=== PATIENT | female | born 1940 | race Caucasian/White ===

== ENCOUNTER 2024-09-05 10:06 | Emergency (ER) | payer MEDICARE, SELFPAY ==
[2024-09-05 10:08] VITALS: BMI 19.8
[2024-09-05 10:11] VITALS: BP 137/75
--- NOTE | 2024-09-05 10:19 | ED.GENMED ---
History of Present Illness
General
Chief Complaint: Abdominal Symptoms
Source: patient
Exam Limitations: none
Time Seen by Provider: 09/05/24 10:07
History of Present Illness
History of Present Illness:
84-year-old female presents with 4 days worth of diarrhea. She goes numerous times throughout the day. Is mostly liquid. She denies any blood in the stool. She does have a history of C. difficile. No recent antibiotics. She was however in the
hospital 2 weeks ago at [facility] for bladder incontinence.
Past History
Past History
ED Past Medical History: GERD, HTN, Hypercholesterolemia, Hypothyroidism, Psychiatric (Depression) and Other (C. difficile with colitis, , alcohol abuse, PNA, IBS); Negative IDDM, NIDDM or OR
ED Past Surgical History: Orthopedic
Social History
Tobacco: Former smoker
Alcohol: Chronic alcoholic
Drug: None
Personal:
Living: skilled nursing ([facility])
Employment: Retired
Family History
Family History: Hypertension, Early CAD, CAD and Cancer (Colon cancer)
Phy Exam
Physical Exam
Physical Exam:
General: Well-appearing female no acute respiratory distress
HEENT: Normocephalic atraumatic
Heart: Regular rate and rhythm
Lungs: Clear no wheeze
Abdomen is soft nontender nondistended
Extremities: No cyanosis or edema
Skin: Warm no rash
Course
Orders/Labs/Results
Orders:
Orders
09/05/24 10:23
0.9% Sodium Chloride 1000 ml [Nss] 1,000 ml IV BOLUS
09/05/24 10:30
Complete Blood Count/With Diff Urgent
Comprehensive Metabolic Panel Urgent
09/05/24 14:01
STOOL [C difficile Antigen & Toxins] Urgent
MOHINI Source: Feces/Stool
Specimen Description:
Date Specimen was Collected: 09/05/24
Time Specimen was Collected: 13:55
Stool Culture Urgent
MOHINI Source: Feces/Stool
Specimen Description:
Date Specimen was Collected: 09/05/24
Time Specimen was Collected: :
Abnormal Lab Results
09/05/24
10:30
WBC 4.4 L 10^3/uL
(4.8-10.8)
RBC 4.11 L 10^6/uL
(4.20-5.40)
MCH 32.1 H pg
(27.0-31.0)
RDW 14.8 H %
(11.5-14.5)
Absolute Lymphs (auto) 0.6 L 10^3/uL
(1.2-3.4)
Lymphocytes % 14.3 L %
(20.5-51.1)
Monocytes % 11.8 H %
(1.7-9.3)
AST 78 H U/L
(14-36)
ALT 65 H U/L
(0-35)
09/05/24 10:30
09/05/24 10:30
Vital Signs
Initial and Last Documented VS:
Initial Vital Signs
Temp
98.1 F
09/05/24 10:08
Last Documented Vital Signs
Temp Pulse Resp BP Pulse Ox
98.1 F 78 20 161/72 97
09/05/24 10:08 09/05/24 13:00 09/05/24 13:00 09/05/24 13:00 09/05/24 13:00
MDM/Problems Addressed
Differential Diagnosis Includes:
Diarrhea for 4 days. History of C. difficile. Will order stool cultures and C. difficile studies. Abdomen exam is benign. She has nonbloody diarrhea. Considered imaging but not indicated given benign abdominal exam. Consider electrolyte
abnormality or dehydration from diarrhea.
Will hydrate. Labs pending
*Critical Care Note
Total Time (30-74mins, 75-104mins- exclusive of procedures): Not Applicable
Update Note
Update Note:
Reexamined patient multiple times. She looks well color has improved after hydration. Labs reviewed without significant finding. CT antigen positive toxin negative. She has seen GI in the past for diarrhea. She has been prescribed
cholestyramine and Lomotil in the past. Patient tolerating a brat diet currently. No indication for admission will try Bentyl at home with follow-up with GI. Stool cultures are pending
ED Attending Note
-
Portions of this chart may have been created with voice recognition software.� Occasional wrong word or��sound alike� substitutions may have occurred due to the inherent limitations of voice recognition software.
Discharge Plan
Departure
Patient Disposition: Home (Routine Discharge)
Date of Disposition: 09/05/24
Time of Disposition: 15:43
Patient with high blood pressure during this ER visit?: No
Discharge Problem:
Diarrhea
Instructions: Diarrhea in teens and adults
Prescriptions:
New
dicyclomine 10 mg capsule
10 mg PO QID PRN (Reason: diarrhea) Qty: 14 0RF
No Action
sertraline 100 MG tablet
100 mg PO DAILY
meloxicam 7.5 MG tablet
7.5 mg PO HS
Saline [place]
1 spray inhalation DAILY
Excedrin Extra Strength 250-250-65 mg Tablet
1 tab PO DAILY
sennosides [senna] 8.6 mg Tablet
8.6 mg PO BIDPRN PRN (Reason: constipation) Qty: 0 0RF
acetaminophen 325 mg Tablet
650 mg PO Q4HPRN PRN (Reason: mild pain) Qty: 1 0RF
docusate sodium 100 mg Capsule
100 mg PO BIDPRN PRN (Reason: Constipation) Qty: 0 0RF
ibuprofen 600 mg Tablet
600 mg PO Q4HPRN PRN (Reason: mild cramps) Qty: 0 0RF
simethicone [Gas Relief 80 (simethicone)] 80 mg Tablet,Chewable
80 mg PO Q6HPRN PRN (Reason: gas distention) Qty: 0 0RF
Referrals:
Sharita Guajardo MD [Family Provider] -
Activity Restrictions/Additional Instructions:
Continue drinking plenty of clear liquids. Even brat diet as discussed. You may use Bentyl if needed. Your stool cultures are pending. Follow-up with your GI team otherwise
Interventions
Interventions:
*Risk Screen - Suicide Last Done: 09/05/24 10:09
*General Assessment Last Done: 09/05/24 10:09
*Neglect/Abuse Screening Last Done: 09/05/24 10:09
*ED COVID-19 Vaccine History Last Done: 09/05/24 10:09
CV-Pxxzeq-Plyijqmgck Assessment Last Done: 09/05/24 10:10
Discharge Date and Time
Print Language: LATVIAN
[2024-09-05] MEDS: NSS 1000 IV (10:30)
[2024-09-05 10:45] LABS: % Basophils 0.5 % (0-2); % Eosinophils 0.9 % (0-6); % Immature Granulocytes 0.2 % (0-0.5); % Lymphocytes 14.3 % (20.5-51.1); % Monocytes 11.8 % (1.7-9.3); % Neutrophils 72.3 % (42.2-75.2); Absolute Lymphocytes 0.6 10^3/uL (1.2-3.4); Absolute Monocytes 0.5 10^3/uL (0.1-0.6); Absolute Neutrophils 3.2 10^3/uL (1.4-6.5); Hematocrit 37.9 % (37.0-47.0); Hemoglobin 13.2 g/dL (12.0-16.0); Mean Corp Hgb Conc. 34.8 g/dL (33.0-37.0); Mean Corpuscular Hgb 32.1 pg (27.0-31.0); Mean Corpuscular Volume 92.2 fL (81.0-99.0); Mean Platelet Volume 10.1 fL (7.4-10.4); Nucleated Red Blood Cells % 0 %; Platelet Count 174 10^3/uL (130-400); Red Blood Cell Count 4.11 10^6/uL (4.20-5.40); Red Cell Dist. Width 14.8 % (11.5-14.5); White Blood Cell Count 4.4 10^3/uL (4.8-10.8)
[2024-09-05 11:00] LABS: ALT (SGPT) 65 U/L (0-35); AST (SGOT) 78 U/L (14-36); Albumin 4.7 g/dl (3.5-5.0); Alkaline Phosphatase 125 U/L (38-126); Blood Urea Nitrogen 13 mg/dl (7-17); Calcium 9.4 mg/dl (8.4-10.2); Carbon Dioxide 23 mmol/L (22-30); Chloride 103 mmol/L (98-107); Estimated Creatinine Clearance 43 ml/min; Glucose 92 mg/dl (70-99); Potassium 4.2 mmol/L (3.5-5.1); Sodium 140 mmol/L (135-145); Total Bilirubin 1.1 mg/dl (0.2-1.3); Total Protein 7.5 g/dl (6.3-8.2); eGFR > 60.00
[2024-09-05 13:00] VITALS: BP 161/72
[2024-09-05 15:00] VITALS: BP 156/75
[2024-09-05 17:00] VITALS: BP 96/70
== END 2024-09-05 18:02 | disposition home or self-care (01) ==
LOC: EMR 10:06
PROVIDERS: Physician Assistant; EMERGENCY PHYSICIAN Student in an Organized Health Care Education/Training Program; FAMILY PHYSICIAN Family Medicine
DX: R19.7 Diarrhea, unspecified (principal); E03.9 Hypothyroidism, unspecified; E11.9 Type 2 diabetes mellitus without complications; E78.00 Pure hypercholesterolemia, unspecified; F32.A Depression, unspecified; I10 Essential (primary) hypertension; K21.9 Gastro-esophageal reflux disease without esophagitis; K58.0 Irritable bowel syndrome with diarrhea; R32 Unspecified urinary incontinence; Z80.0 Family history of malignant neoplasm of digestive organs; Z82.49 Family history of ischemic heart disease and other diseases of the circulatory system; Z87.891 Personal history of nicotine dependence
CPT/HCPCS: 99283; 96360; 80053; 85025; 87045; 87046; 87324; 87427; 87449

== ENCOUNTER 2025-01-26 23:27 | Observation (INO) | payer MEDICARE, SELFPAY ==
[2025-01-26] VITALS (11 sets, daily range): BP systolic 113–148; BP diastolic 48–82; BMI 26.5
[2025-01-26 15:21] LABS: Hematocrit 36.6 % (37.0-47.0); Hemoglobin 12.7 g/dL (12.0-16.0); Mean Corp Hgb Conc. 34.7 g/dL (33.0-37.0); Mean Corpuscular Hgb 32.3 pg (27.0-31.0); Mean Corpuscular Volume 93.1 fL (81.0-99.0); Mean Platelet Volume 10.6 fL (7.4-10.4); Platelet Count 121 10^3/uL (130-400); Red Blood Cell Count 3.93 10^6/uL (4.20-5.40); Red Cell Dist. Width 14.9 % (11.5-14.5); White Blood Cell Count 7.1 10^3/uL (4.8-10.8)
[2025-01-26 15:28] LABS: ALT (SGPT) 38 U/L (0-35); AST (SGOT) 43 U/L (14-36); Albumin 3.6 g/dl (3.5-5.0); Alkaline Phosphatase 168 U/L (38-126); Blood Urea Nitrogen 11 mg/dl (7-17); Calcium 8.1 mg/dl (8.4-10.2); Carbon Dioxide 19 mmol/L (22-30); Chloride 106 mmol/L (98-107); Glucose 109 mg/dl (70-99); Magnesium 2.1 mg/dl (1.6-2.3); Sodium 139 mmol/L (135-145); Total Bilirubin 1.1 mg/dl (0.2-1.3); eGFR > 60.00
[2025-01-26 15:31] LABS: Urine Albumin 2+ (Neg - Trace); Urine Bilirubin Negative (Negative); Urine Character Slightly Cloudy (Clear); Urine Color Amber; Urine Glucose Negative (Negative); Urine Ketone Negative (Negative); Urine Leukocyte 1+ (Negative); Urine Nitrite Positive (Negative); Urine Occult Blood Negative (Negative); Urine Urobilinogen Negative (Neg - 1+)
[2025-01-26 15:36] LABS: % Basophils 0.4 % (0-2); % Eosinophils 19.3 % (0-6); % Immature Granulocytes 1.8 % (0-0.5); % Monocytes 11.9 % (1.7-9.3); % Neutrophils 54.6 % (42.2-75.2); Absolute Eosinophils 1.4 10^3/uL (0-0.7); Absolute Immature Granulocytes 0.1 10^3/uL (0-0.05); Absolute Lymphocytes 0.9 10^3/uL (1.2-3.4); Absolute Monocytes 0.9 10^3/uL (0.1-0.6); Absolute Neutrophils 3.9 10^3/uL (1.4-6.5); Nucleated Red Blood Cells % 0 %
[2025-01-26 15:54] LABS: Urine Bacteria Moderate (Negative); Urine Red Blood Cell 0-2 /HPF (0-2)
[2025-01-26 16:04] LABS: Amphetamines Negative (Negative); Barbiturates Negative (Negative); Benzodiazepines Negative (Negative); Buprenorphine Negative (Negative); Cocaine Negative (Negative); Marijuana Positive (Negative); Methadone Negative (Negative); Methamphetamines Negative (Negative); Opiates Negative (Negative); Phencyclidine Negative (Negative); Tricyclic Antidepressants Negative (Negative)
[2025-01-26 16:07] LABS: Alcohol 74 mg/dl
--- NOTE | 2025-01-26 16:37 | ED.GENMED ---
History of Present Illness
General
Chief Complaint: Weakness
Source: patient
Exam Limitations: none
Time Seen by Provider: 01/26/25 15:58
Nursing documentation reviewed up to this point in time: agreed with
History of Present Illness
History of Present Illness:
Patient is a 85-year-old female history of alcohol abuse, hypertension, hyperlipidemia presenting to the emergency department for evaluation of generalized weakness. Patient states she feels extremely 'depleted '. She states she is was too weak to
get out of bed this morning and texted her son because she was covered in her own feces/urine. She does report chronic urinary/fecal incontinence. Patient has not been eating much over the past 2 days. She lives alone and feels that she is unable
to care for herself at this point.
Patient denies any recent fever or chills. No hematochezia or melena. She denies any vomiting, abdominal pain, or cough.
Patient denies any recent falls or trauma. No headache or neck pain.
She did have 2 glasses of wine prior to calling 911 today to calm her nerves.
I did call and speak to patient's son who lives in [place] and states patient texted him stating she was covered in her urine/feces and could not get out of bed. He urged her to call 911. Patient son states she is incapable of taking care of herself
and feels that she needs placement
Past History
Past History
ED Past Medical History: GERD, HTN, Hypercholesterolemia, Hypothyroidism, Psychiatric (Depression) and Other (C. difficile with colitis, , alcohol abuse, PNA, IBS); Negative IDDM, NIDDM or NM
ED Past Surgical History: Orthopedic
Social History
Tobacco: Former smoker
Alcohol: Chronic alcoholic
Drug: None
Personal:
Living: group home ([facility])
Employment: Retired
Family History
Family History: Hypertension, Early CAD, CAD and Cancer (Colon cancer)
Review of Systems
Review of Systems
Allergies reviewed?: Yes
All Other Systems: ROS reviewed and negative except as documented in HPI and ROS
Phy Exam
Physical Exam
Physical Exam:
Vitals: Patient's vital signs are stable. Afebrile
General: Patient is weak appearing.
Skin: Warm and dry. Diffuse maculopapular rash
Head: Normocephalic, atraumatic
Eyes: Sclera nonicteric. EOMs intact. No nystagmus.
Throat: Protecting airway
Neck: Normal ROM, no cervical spine tenderness, no meningismus
Cardiac: Regular rate and rhythm, no murmurs.
Pulm: Normal respiratory effort, no wheezes, rales, rhonchi heard on exam.
Abdomen: Abdomen soft and nontender. No rebound tenderness or guarding.
Extremities: No evidence of cyanosis or edema. Palpable DP pulses bilaterally
Neuro: AAOx3. No focal neurologic deficits.
Psychiatric: Normal affect.
Course
Orders/Labs/Results
Orders:
Orders
01/26/25 14:47
EKG [Electrocardiogram (*1)] Urgent
Reason for Study: Fatigue / Weakness
EKG- Treatment ONCE
01/26/25 15:10
Alcohol Urgent
Complete Blood Count/With Diff Urgent
Comprehensive Metabolic Panel Urgent
Creatine Phosphokinase Urgent
Comment: ADD ON
Magnesium Urgent
Urinalysis Reflex To Culture Urgent
Date Specimen was Collected: 01/26/25
Time Specimen was Collected: 14:47
Urine Microscopic Reflex Cult Urgent
Urine Culture Urgent
MOHINI Source: U
Specimen Description:
Date Specimen was Collected: 01/26/25
Time Specimen was Collected: 14:47
01/26/25 15:12
Urine Drug Abuse Screen Urgent
Date Specimen was Collected: 01/26/25
Time Specimen was Collected: 15:11
01/26/25 17:07
Add On- LAB Urgent
Tests Added?: CK
0.9% Sodium Chloride 500 ml [Nss] 500 ml IV BOLUS
01/26/25 17:22
Case Management Consult ONCE
Case Management Consult: Discharge Planning
01/26/25 18:02
0.9% Sodium Chloride 1000 ml [Nss] 1,000 ml IV BOLUS
01/26/25 19:00
COVID-19 Antigen Urgent
Source: Nasal Swab
Influenza A+B Rapid Molecular Urgent
MOHINI Source: Nasal Swab
Specimen Description:
01/26/25 19:22
STOOL [C difficile Antigen & Toxins] Urgent
MOHINI Source: Feces/Stool
Specimen Description:
Date Specimen was Collected: 01/26/25
Time Specimen was Collected: 19:30
01/26/25 19:32
Stool Culture Urgent
MOHINI Source: Feces/Stool
Specimen Description:
Date Specimen was Collected: 01/26/25
Time Specimen was Collected: 19:30
Abnormal Lab Results
01/26/25 01/26/25
15:10 15:12
RBC 3.93 L 10^6/uL
(4.20-5.40)
Hct 36.6 L %
(37.0-47.0)
MCH 32.3 H pg
(27.0-31.0)
RDW 14.9 H %
(11.5-14.5)
Plt Count 121 L 10^3/uL
(130-400)
MPV 10.6 H fL
(7.4-10.4)
Abs Immat Gran (auto) 0.1 H 10^3/uL
(0-0.05)
Absolute Lymphs (auto) 0.9 L 10^3/uL
(1.2-3.4)
Absolute Monos (auto) 0.9 H 10^3/uL
(0.1-0.6)
Absolute Eos (auto) 1.4 H 10^3/uL
(0-0.7)
Immature Gran % 1.8 H %
(0-0.5)
Lymphocytes % 12.0 L %
(20.5-51.1)
Monocytes % 11.9 H %
(1.7-9.3)
Eosinophils % 19.3 H %
(0-6)
Carbon Dioxide 19 L mmol/L
(22-30)
Glucose 109 H mg/dl
(70-99)
Calcium 8.1 L mg/dl
(8.4-10.2)
AST 43 H U/L
(14-36)
ALT 38 H U/L
(0-35)
Alkaline Phosphatase 168 H U/L
(38-126)
Creatine Kinase < 20 L U/L
(30-135)
Urine Nitrite (Reflex) Positive A
(Negative)
Leukocyte Esterase Rfl 1+ A
(Negative)
Urine Bacteria (Reflex) Moderate A
(Negative)
Urine Albumin (Reflex) 2+ A
(Neg - Trace)
U Marijuana (THC) Screen Positive H
(Negative)
01/26/25 15:10
01/26/25 15:10
Vital Signs
Initial and Last Documented VS:
Initial Vital Signs
Temp Pulse Resp BP Pulse Ox
98.4 F 88 24 113/57 94
01/26/25 14:50 01/26/25 14:50 01/26/25 14:50 01/26/25 14:50 01/26/25 14:50
Last Documented Vital Signs
Temp Pulse Resp BP Pulse Ox
98.4 F 84 26 116/57 94
01/26/25 14:50 01/26/25 16:08 01/26/25 16:08 01/26/25 16:08 01/26/25 16:08
MDM/Problems Addressed
Differential Diagnosis Includes:
Not limited to: Viral illness, acute dehydration, electrolyte imbalance, UTI, C. difficile, etc.
MDM/Problems Addressed:
85-year-old female with history as documented presenting with progressively worsening generalized weakness and concerns for inability to properly care for oneself at home. Denies associated chest pain, shortness of breath, fever, abdominal pain.
Does have chronic history of urinary/fecal incontinence. Vital stable and afebrile. Physical exam as above. Patient weak appearing although nontoxic-appearing. She is alert and oriented without any focal neurologic deficits on exam. There is no
evidence of any head or neck trauma. Benign abdomen. Cardio/pulmonary/unremarkable. Basic screening labs and urinalysis were sent prior to my evaluation. CBC with mild thrombocytopenia, otherwise vital signs stable. Chemistry with transaminitis
likely secondary to alcohol use. She does also have a very mild hypocalcemia. Urine somewhat equivocal for infection. EKG shows normal sinus rhythm without acute ischemic changes.
Patient without current evidence of alcohol withdrawal on exam. Labs without evidence of significant dehydration or significant electrolyte imbalance. No evidence of infectious process. Unfortunately�patient does not seem to be capable of caring
for oneself appropriately at home including ADLs. Do not feel she is safe for discharge home at this point. Patient will require admission for physical therapy/case management consult tomorrow and likely placement. Will hold antibiotics at this
time pending urine culture as she does have history of C. difficile. She was accepted to the hospitalist service in stable condition. Case discussed with attending physician, Dr. Kennedy.
Chronic conditions affecting care:
Hypertension, alcohol abuse, C. difficile
Acute Exacerbation and/or Progression of Chronic Illness:
N/A
*Pulse Oximetry
Patient hypoxic: no
*EKG
Interpreted by ED Provider?: Yes
EKG Intrepretation Date: 01/26/25
Interpretation: normal
Comparison EKG: no changes
Heart Rate: 93
Rate: normal
Rhythm: sinus
[place]: normal axis
Interval: normal QT interval
QRS Pattern: normal QRS
Ischemia: no ischemia
*Food Processor Interpretation
Rate: normal
Interpretation: normal
Heart Rate: 90
Rhythm: sinus
*Critical Care Note
Total Time (30-74mins, 75-104mins- exclusive of procedures): Not Applicable
Patient Management
Discussion with other providers: Hospitalist
ED Attending Note
-
Portions of this chart may have been created with voice recognition software.� Occasional wrong word or��sound alike� substitutions may have occurred due to the inherent limitations of voice recognition software.
Discharge Plan
Departure
Patient Disposition: Admit
Date of Disposition: 01/26/25
Time of Disposition: 18:12
Presentation/result/management discussed w/ accepting MD/DO: Hospitalist
Discharge Problem:
Generalized weakness, Alcohol abuse
Prescriptions:
No Action
Excedrin Extra Strength 250-250-65 mg Tablet
1 tab PO DAILYPRN PRN (Reason: sinus headache)
sertraline 50 mg Tablet
50 mg PO HS
melatonin 10 mg Tablet
10 mg PO HS
cholestyramine 4 gram Powder In Packet
4 g PO QPM
Referrals:
Sharita Guajardo MD [Family Provider] -
Interventions
Interventions:
*Risk Screen - Suicide Last Done: 01/26/25 14:50
*General Assessment Last Done: 01/26/25 14:50
*Neglect/Abuse Screening Last Done: 01/26/25 14:50
*ED- Fall Risk Assessment Last Done: 01/26/25 14:50
*ED COVID-19 Vaccine History Last Done: 01/26/25 14:50
ED- Cardiac Assessment Last Done: 01/26/25 14:50
ED- Neurological Assessment Last Done: 01/26/25 14:50
ED- Pulmonary Assessment Last Done: 01/26/25 14:50
Discharge Date and Time
Print Language: VINCENTIAN
[2025-01-26 17:41] LABS: Creatine Phosphokinase < 20 U/L (30-135)
[2025-01-26] MEDS: NSS 1000 IV (19:28)
[2025-01-26 19:49] LABS: COVID-19 Antigen Negative (Negative)
--- NOTE | 2025-01-26 22:31 | HPS.HSE ---
Family Physician
-
Family Physician: Sharita Guajardo
Chief Complaint
-
Allergies
Allergy/AdvReac Type Severity Reaction Status Date / Time
amoxicillin [Amoxicillin] Allergy Mild Vomiting Verified 07/17/22 10:14
clindamycin Allergy C-Diff Verified 07/17/22 10:14
nitrofurantoin AdvReac severe Verified 07/21/22 11:42
[From Macrobid] vomiting
Home Medications
yqkkddl-fzumxkhgagsem-isqgyqdr 250 mg-250 mg-65 mg tablet (Excedrin Extra Strength) 1 tab PO DAILYPRN PRN sinus headache 07/21/22
cholestyramine 4 gram oral powder for suspension in a packet 4 g PO QPM 01/26/25
melatonin 10 mg tablet 10 mg PO HS 01/26/25
sertraline 50 mg tablet 50 mg PO HS 01/26/25
History of Present Illness
The patient is an 85-year-old woman with past medical history significant for alcohol abuse, hypertension, hyperlipidemia, 2 episodes of C. Difficile colitis who presented to the emergency department due to generalized weakness with the feeling of
being extremely depleted. She was too weak to get out of bed this morning and texted her son. She was covered in her own feces and urine. She reports a history of chronic fecal and urinary incontinence. She has had anorexia for the past 2 days.
She feels that she is unable to care for herself at this point as she does live alone. She denies chest pain no shortness of breath no palpitations, no nausea vomiting or diarrhea. She denies recent sick contacts, no fevers no chills no bleeding
no dysuria. She had 2 glasses of wine prior to calling EMS secondary to anxiety. She says she does not drink alcohol daily.
ED txt: IVF NS 1500 mL
Medical History
Past Medical History
Past Medical History: Reports GERD, HTN, Hypercholesterolemia, Psychiatric (depression) and Other
Additional Past Medical History:
back melanoma, HTN, Hypothyroidism, depression,Insomnia, C. difficile colitis with fecal transplant x2, chronic seasonal allergies, chronic epistaxis, Klebsiella UTI, dry mouth, vitamin D deficiency
Past Surgical History: Reports Other
Additional Past Surgical History:
(Bilateral hip replacement
L2-L5 spinal fusion x2,
right shoulder replacement
Melanoma removal back
Social History
Tobacco: Non-smoker
Alcohol: None
Drug: None
Personal: Single
Living: Alone
Family History
Family History: Not pertinent
Allergies / Home Medications
Allergies reflects when Allergies were last updated in [facility].
Home Medications with original date entered in [facility]
Allergy/Medication List:
Allergies
Allergy/AdvReac Type Severity Reaction Status Date / Time
amoxicillin [Amoxicillin] Allergy Mild Vomiting Verified 07/17/22 10:14
clindamycin Allergy C-Diff Verified 07/17/22 10:14
nitrofurantoin AdvReac severe Verified 07/21/22 11:42
[From Macrobid] vomiting
Home Medications
lbyyfyu-yeqbdubvcqhip-cbymducu 250 mg-250 mg-65 mg tablet (Excedrin Extra Strength) 1 tab PO DAILYPRN PRN sinus headache 07/21/22
cholestyramine 4 gram oral powder for suspension in a packet 4 g PO QPM 01/26/25
melatonin 10 mg tablet 10 mg PO HS 01/26/25
sertraline 50 mg tablet 50 mg PO HS 01/26/25
Review of Systems
-
A 12 point ROS was completed and negative except as noted: Yes
Physical Exam
Vital Signs
Vital Signs
Temp Pulse Resp BP Pulse Ox
98.4 F 84 26 116/57 94
01/26/25 14:50 01/26/25 16:08 01/26/25 16:08 01/26/25 16:08 01/26/25 16:08
Physical Exam
General: No Apparent Distress, Comfortable and Conversant
HEENT: NormoCephalic, Anicteric and Moist mucous membranes
Respiratory: Clear
Cardiac: S1/S2 and Regular Rhythm
GI: Soft, Non Tender and Non Distended
Musculoskeletal: No Clubbing, No Cyanosis and No Edema
Skin: Warm and Dry
Neuro: AO x 3
Psych: Calm
Laboratory Results
-
01/26/25 15:10
01/26/25 15:10
Laboratory Results
Total Bilirubin 1.1 mg/dl (0.2-1.3) 01/26/25 15:10
AST 43 U/L (14-36) H 01/26/25 15:10
ALT 38 U/L (0-35) H 01/26/25 15:10
Alkaline Phosphatase 168 U/L (38-126) H 01/26/25 15:10
Impression/Plan
-
IMPRESSION:The patient is an 85-year-old woman with past medical history significant for alcohol abuse, hypertension, hyperlipidemia who presented to the emergency department due to generalized weakness with the feeling of being extremely depleted.
She was too weak to get out of bed this morning and texted her son. She was covered in her own feces and urine. She reports a history of chronic fecal and urinary incontinence. She has had anorexia for the past 2 days. She feels that she is
unable to care for herself at this point as she does live alone. She denies chest pain no shortness of breath no palpitations, no nausea vomiting or diarrhea. She denies recent sick contacts, no fevers no chills no bleeding no dysuria. She had 2
glasses of wine prior to calling EMS secondary to anxiety.
# Generalized weakness and failure to thrive
-Case management and physical therapy consult to evaluate mobility and options for placement
# Chronic urinary and fecal incontinence
-The patient was scheduled to have a pessary placed yesterday however was unable to go to her appointment, she also said that they did not have the correct pessary size for her
# History of alcohol abuse,2 glasses of wine prior to arrival
-alcohol withrawal protocol
-check mg, phos
-thiamine, folate
Chronic medical conditions:
#back melanoma
#Essential HTN
#Hypothyroidism
#Depression
-sertraline
#Insomnia
-melatonin
#C. difficile colitis with fecal transplant x2
-continue cholestyramine
#chronic seasonal allergies
# chronic epistaxis
#Klebsiella UTI, history of
#dry mouth
# vitamin D deficiency
DNR
DVT prophylaxis Lovenox-
[2025-01-27] VITALS (7 sets, daily range): BP systolic 129–153; BP diastolic 63–90; BMI 29.0
--- NOTE | 2025-01-27 01:24 | PTCARENOTE ---
Pt arrived onto floor @0124. Pt AAOx3 and a cotton puller to the bed. Pt with no complaints of pain or SOB at this time. Pt oriented to room and call chen; will continue to monitor
[2025-01-27] MEDS: QUESTRAN 4 GRAM PO ×3 (02:20→21:13)
[2025-01-27] MEDS: ZOLOFT 50 MG PO (02:20)
[2025-01-27] MEDS: ZOFRAN 4 MG IV (02:20)
[2025-01-27] MEDS: FOLVITE 1 MG PO (08:11)
[2025-01-27] MEDS: THIAMINE INJECTION 200 MG IV (08:11)
--- NOTE | 2025-01-27 09:00 | PTCARENOTE ---
4/5- Rounded with Physician in patient room. Patient is AAOX3, flat affect. She is refusing treatment except meds, states 'I'm done with all of this.' When physician asked her to elaborate, she stated, 'I am in pain. I'm old. The healthcare
system is horrible. I'm just done with this. I'm ready. I've accepted it. I just want to go home and .' She denies SI, HI or any hx SA, but she's just 'done with all of it.' Physician states he will put in a psych and palliative consult.
Patient also moved to Standard Precautions d/t Labs coming back Negative for CDiff Toxin (antigen positive).
--- NOTE | 2025-01-27 13:41 | W.PN.HOSP.TC ---
Today's Communication/Plan
-
* PT-OT-CM.
* IV hydration.
* Bowel regimen.
* Switch sertraline to duloxetine.
Assessment / Plan
Assessment / Plan
Assessment
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 She has chronic fecal and urinary incontinence, and has progressively been unable to care for herself and her hygiene. The day
she was brought to the hospital, she woke up and was not able to get out of bed and had been soaked with urine and feces. Also expresses hopelessness about her health situation and wants to 'just pass away'. She endorses 'terrible depression' and
states that it has 'not been adequately treated'. Denies suicidal or homicidal ideations, or any plans to that end. Of note, she has limited guardians that help with finances but she retains decision making for healthcare related decisions.
Impression and plan
Generalized weakness
Anorexia and nausea
- Likely from chronic deconditioning.
- Lab work unrevealing of any acute pathologies.
- PT-OT-CM consultation; may require placement for long-term care.
- Gentle IV hydration for now.
Fecal incontinence
Chronic diarrhea
History of C. Diff colitis *2
History of fecal transplant *2
- Increase cholestyramine to twice daily.
- Add loperamide prn.
Urinary incontinence
- Tried several outpatient medications but have not helped.
- Unable to find the right size for pessary.
- Not a surgical candidate either.
Persistent depressive disorder
Major depressive episode
Generalized anxiety disorder
- Psychiatry consultation.
- Switch sertraline to duloxetine.
History of alcohol use
- No concern for withdrawal at this point; monitor.
- Continue thiamine and folate.
Chronic insomnia
- Melatonin.
History of hypothyroidism
- Check studies.
Vitamin D deficiency
- Supplementation.
Thromboprophylaxis
- Enoxaparin.
Code status
- DNR-DNI
Anticipated Discharge: > 48 hours
Subjective/Interval History
-
Date of Service: January 27, 2025
Expressing frustrating about her health situation and states 'she just wants to pass away'. No plan or suicidal homicidal ideations.
Objective Data
-
Labs:
Laboratory Results
01/27/25
06:00
Sodium Pending
Potassium Pending
Chloride Pending
Carbon Dioxide Pending
BUN Pending
Creatinine Pending
Glucose Pending
Calcium Pending
Vital Signs:
Vital Signs
Temp Pulse Resp BP Pulse Ox
99.9 F 101 15 139/67 97
01/27/25 07:54 01/27/25 07:54 01/27/25 07:54 01/27/25 07:54 01/27/25 08:10
I&O
01/26/25 01/27/25 01/28/25
06:59 06:59 06:59
Intake Total 240 / 240
Balance 240 / 240
Review of Systems
-
History Source: Patient
Constitutional: Reports Fatigue
EENT: Reports No Symptoms Reported
Respiratory: Reports No Symptoms
Cardiac: Reports No Symptoms
Abdomen/GI: Reports Other (incontinence)
Genitourinary: Reports Other (incontinence)
Musculoskeletal: Reports No Symptoms
Skin: Reports No Symptoms
Neuro: Reports No Symptoms
Endocrine: Reports No Symptoms
Hematologic / Lymphatic: Reports No Symptoms
Allergy / Immunology: Reports No Symptoms
Psych: Reports Depressed and Sad
Physical Exam
-
General: No Apparent Distress and Comfortable
HEENT: Normocephalic, Atraumatic, Moist Mucous Membranes, Anicteric and No Ptosis
Respiratory: Clear to Auscultation and Non Labored Respirations
Cardiac: Regular Rhythm and S1/S2
GI: Soft, Nontender, Nondistended and No Hepatosplenomegaly
Genito-urinary: No Costovertebral Tender
Musculoskeletal: No Clubbing, No Cyanosis and No Edema
Skin: Warm, Dry and IV Access / Catheter Site
Neuro: Awake, Alert, Oriented, No Motor Deficits and Nonfocal/Grossly Intact
Hematologic / Lymphatic: No Lymphadenopathy
Psych: Calm, Depressed and Anxious; Negative Suicidal
[2025-01-27] MEDS: NSS 1000 IV (13:47)
--- NOTE | 2025-01-27 13:52 | CM ---
CM reviewed chart, patient seen bedside, consults received for substance abuse counseling and discharge planning. Per patient, lives alone in an apartment on the second floor, no elevator access, 19 steps to apartment. Patient reports she has a cane
and walker at home, has had [facility] in past, denies SNF history. Patient feels she cannot safely discharge home, reports she is too weak. Patient reports her son, Freddy, lives in [place] but is patients primary contact, her daughter who is a retired
teacher, lives in [place] but has her own health issues and is of no help to patient. Patient confirms her PCP Sharita Guajardo, pharmacy [facility]. 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
system now. CM discussed substance consult and offered [facility], patient declines, reports she does not drink beer or hard liquor, does not feel she has a problem at this time. Patient provided with CAR form, verbally reviewed, placed in patients
chart. Per PT/OT, attempted to work with patient, patient refused, will need therapy recommendations to discuss further discharge planning regarding SNF. Psych and Palliative consult placed. CM will continue to follow for all discharge planning
needs.
Plan; Palliative consult, PT/OT, likely SNF
--- NOTE | 2025-01-27 13:53 | CON.MD ---
Consultation - Medical
-
patient seen chart reviewed. patient is an 85 year woman with a long history of painful medical issues as well as depression and anxiety over the years. she also has a hx of alcoholism but has not consumed etoh to excess she says in some years.
she says she drinks two small glasses of wine occasionally at this poitn. patient was admitted for for weakness. she felt 'depleted' and admitted she was struggling with incontinence of urine and feces. she has been taking zoloft 50 mg daily. she
says it has not really helped and she thinks the dosage need to be increased. she admits that this point in her life even if she were not depressed she can no longer live on her own. she made some comments re si but said she has never and would
never hurt herself but sometimes she gets discouraged. she would like to find an antidep that will help her to feel stronger and better and accepts that she can no longer live alone. incontinence keeps her from sleeping. appetite is fair. she can
enjoy reading.
past psych hx patient has not been hosp psychiatrically. she did take cymbalta but only 20 mg and her doc told her zoloft was better bc there is more of a choice re doses. she has not been in recent therapy
medical hx patient has hx vulvar cancer w resection. melanoma shoulder. c diff on multiple occasions htn gerd hip rep bilat spine surgery hypothyroid hld diverticulosis svt hx pneumonia nl ecg urine fecal cultures pending
fh d w fibromyalgia
substance abuse see above re etoh
social resides on her own. son lives in [place]. she tried to live there as well but spent three years and returned here. 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 worked as [employer]. d in
nc struggles w medical illness. patient loves to read and spends a lot of time doing it. 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
mse alert ox3 very pleasant and with it 85 yr old nl speech and thought process mood is dysphoric affect normal. denies she would ever hurt self but sometimes wonders if she be better off . no psychosis cognition intact insight judgmeht good
dx major depression recurrent severe
plan would dc zoloft as it can contribute to diarrhea and fecal incontinence is a big issue. we discussed that cymbalta could help w chronic pain and with diarrhea. she was only on 20 mg in the past and that was likely not enough. will start with
30 mg and dc zoloft. will check b12 folate vit d tsh psych will follow
[2025-01-27] MEDS: LOVENOX SC (16:20)
[2025-01-27] MEDS: MELATONIN 10 MG PO (21:13)
[2025-01-27] MEDS: DESYREL 12.5 MG PO (21:40)
[2025-01-27] MEDS: OCEAN, SALINE MIST 2 SPRAYS NASAL (22:02)
[2025-01-27] MEDS: DESENEX/MITRAZOL/ZEASORB TOPICAL (23:58)
[2025-01-27] MEDS: TYLENOL 650 MG PO (23:58)
[2025-01-28] MEDS: DESENEX/MITRAZOL/ZEASORB TOPICAL (00:01)
--- NOTE | 2025-01-28 00:01 | PTCARENOTE ---
RN administered Tylenol for patient`s temperature and offered to change patient`s pad. Patient stated 'I don`t want to be changed, leave me alone. I haven`t slept'. RN explained skin care education to patient. Patient still refusing to be changed.
[2025-01-28] MEDS: NSS 1000 IV (01:32)
--- NOTE | 2025-01-28 05:45 | PTCARENOTE ---
RN continued hourly rounding on patient during shift. Patient allowed RN and tech to change sheets and bathe her.
[2025-01-28 07:52] VITALS: BP 148/73
[2025-01-28] MEDS: FOLVITE 1 MG PO (08:30)
[2025-01-28] MEDS: CYMBALTA DELAYED RELEASE 30 MG PO (08:30)
--- NOTE | 2025-01-28 08:36 | W.PN.HOSP.TC ---
Today's Communication/Plan
-
Continue supportive therapy, speech evaluation today. Monitor for any changes in symptoms.
Assessment / Plan
Assessment / Plan
Assessment
85-year-old female with a past medical history of alcohol abuse, hypertension, hyperlipidemia, C. difficile colitis, urinary incontinence, hypothyroidism and depression came to the [place] ED on 01/26/2025 due to feeling extremely weak and unable
to get out of bed. Patient was also found to be covered with urine and feces at that time. She had not been eating anything for the past 2 days as well. In the ED she continued to express hopelessness and wanting to pass away. Patient was found
to be extremely depressed and have generalized weakness. Patient's urine studies showed some bacteriuria and possible UTI, patient has a history of Klebsiella UTI in the past as well. Patient did have a fever but does not report any dysuria, but
continues to have urinary incontinence. Patient was seen by psychiatry who changed her medications from Zoloft to Cymbalta to possibly help with GI symptoms as well. Patient continues to have loose stools as per history of chronic diarrhea.
Patient to be seen by hospice and palliative care while in the hospital as per her request.
Plan
#Generalized weakness with not wanting to eat
#Anorexia and nausea
- Not able to eat, says that has trouble swallowing
- Will order speech evaluation
- Patient continues to state that she wants to just pass away
- Will have PT/OT see her today, refused their evaluation yesterday due to feeling weak
- Will continue IV fluids for now
#Fecal incontinence
#Chronic diarrhea
#History of C. Diff colitis *2
#History of fecal transplant *2
- Bowel regimen changed with cholestyramine increased to twice a day
- Loperamide as needed
- Waiting stool cultures for Salmonella/Shigella/Campylobacter/Shiga toxin, C. difficile antigen positive but toxin negative
#Urinary incontinence
- Has been following up outpatient with no success
- No pessary size was found, frustrated with lack of progress in this regard
- Continues to have urinary incontinence, describes that she has had to go through multiple diapers
#Abnormal UA with possible UTI
- UA was positive for urine nitrite, leukocyte esterase, and moderate bacteria
- Urine cultures grew gram-negative bacilli, has had Klebsiella infection in the past
- Possibly start antibiotics, but have to be careful regarding patient's history of C. difficile
#Persistent depressive disorder
#Major depressive episode
#Generalized anxiety disorder
- Psychiatry consulted, input appreciated
- Patient was switched from sertraline to duloxetine 30 mg, due to possible help with GI symptoms
- Hospice/palliative care team consulted as per patient's request
#History of alcohol use
- No concern for withdrawal at this point; monitor.
- Continue thiamine and folate.
#Chronic insomnia
- Continue Melatonin.
#History of hypothyroidism
- TSH Pending
Vitamin D deficiency
- Continue Supplementation
DVT Prophylaxis: Lovenox
Code status: DNR-DNI
Anticipated Discharge: Within 24 hours
Subjective/Interval History
-
Date of Service: January 28, 2025
Patient seems extremely depressed this morning. Does not want any further treatment for most of her conditions. Says that she does not want to eat because she has trouble eating. Is tired of feeling incontinent all the time. Wants to pursue
hospice/palliative care option. Continues to feel thirsty and nothing seems to resolve her thirst.
Objective Data
-
Labs:
Laboratory Results
01/28/25
06:00
WBC Pending
Hgb Pending
Hct Pending
Plt Count Pending
Sodium Pending
Potassium Pending
Chloride Pending
Carbon Dioxide Pending
BUN Pending
Creatinine Pending
Glucose Pending
Calcium Pending
Total Bilirubin Pending
AST Pending
ALT Pending
Alkaline Phosphatase Pending
Vital Signs:
Vital Signs
Temp Pulse Resp BP Pulse Ox
99.1 F 90 15 148/73 98
01/28/25 07:52 01/28/25 07:52 01/28/25 07:52 01/28/25 07:52 01/28/25 07:52
I&O
01/27/25 01/28/25 01/29/25
06:59 06:59 06:59
Intake Total 240 / 240 960 / 960
Balance 240 / 240 960 / 960
Review of Systems
-
History Source: Patient
Constitutional: Denies Fever or Fatigue
EENT: Reports No Symptoms Reported
Respiratory: Denies Cough or Wheezing
Cardiac: Denies Chest Pain, Palpitations, Syncope or Orthopnea
Abdomen/GI: Reports Diarrhea; Denies Abdominal Pain, Nausea or Vomiting
Genitourinary: Reports Incontinence
Musculoskeletal: Reports No Symptoms
Skin: Reports No Symptoms
Neuro: Denies Dizzy or Lightheadedness
Endocrine: Reports Excessive Thirst
Psych: Reports Depressed
Physical Exam
-
General: No Apparent Distress, Comfortable and Conversant
HEENT: Normocephalic and Atraumatic
Respiratory: Clear to Auscultation and Non Labored Respirations
Cardiac: Regular Rhythm and S1/S2
GI: Soft, Nontender and Nondistended
Genito-urinary: No Costovertebral Tender
Musculoskeletal: No Clubbing, No Cyanosis and No Edema
Skin: Warm
Neuro: Awake, Alert and Oriented
Psych: Depressed and Anxious; Negative Suicidal
Data Reviewed
-
Labs: Labs Reviewed by me, Discussed with Physician, Discussed with Nurse and Discussed with Patient
[2025-01-28] MEDS: QUESTRAN 4 GRAM PO ×2 (09:55→21:00)
[2025-01-28] MEDS: DESENEX/MITRAZOL/ZEASORB 1 APPLIC TOPICAL ×2 (09:56→21:03)
[2025-01-28] MEDS: ZOFRAN 4 MG IV (10:02)
[2025-01-28 10:15] VITALS: BMI 29.0
[2025-01-28] MEDS: IMODIUM 2 MG PO ×2 (12:35→20:59)
--- NOTE | 2025-01-28 14:24 | W.PN.UPDATE ---
Update Note
Progress Note Update
Pt sound asleep when I went in to talk to her at 12:15 pm.
I did review chart, and she received the 1st dose of Cymbalta 30 mg, as well as Melatonin and Trazodone.
For followup tomorrow.
[2025-01-28 14:30] VITALS: BP 150/81; PULSE 102; O2SAT 94
[2025-01-28 14:35] VITALS: BP 150/81; PULSE 101; O2SAT 95
--- NOTE | 2025-01-28 15:35 | PTOTSP ---
ST Acute Care Evaluation
Pt currently presents with clinical signs of suspected pharyngoesophageal dysphagia as evidenced by pt's persistent nausea for several weeks, avoidance of solid foods, and persistent eructation s/p ingestion of thin liquids with very delayed onset
of wet vocal quality.
Pt's tolerance of solids was unable to be assessed during this evaluation due to pt's refusal.
Recommendations:
- Continue with thin liquids (small sips) and meds with sips of liquids.
- Aspiration and reflux precautions: HOB upright for all PO and for 60 minutes after; slow intake rate.
- Consider PPI or H2 reina.
- VFSS with esophageal hernandez for more info re: pt's swallowing function.
- CONTRACT NEGOTIATION MANAGER to f/u with additional recommendations following VFSS tomorrow.
--- NOTE | 2025-01-28 16:45 | PTCARENOTE ---
Assumed care of pt from previous nurse. Pt denies pain. Pt agitated at times, refused some care and interventions. This RN able to redirect pt. Pt grossly incontinent of bowel and bladder. Incontinent care provided. Pt appetite is poor. Pt seen by
ST, video swallow ordered, pt changed to a liquid diet. Pt call chen is within reach, pt rings clair. will cont to monitor.
[2025-01-28] MEDS: LOVENOX SC (17:37)
[2025-01-28 20:46] VITALS: BP 153/88
[2025-01-28] MEDS: MELATONIN 10 MG PO (20:59)
[2025-01-28] MEDS: TYLENOL 650 MG PO (20:59)
[2025-01-28] MEDS: DESYREL 12.5 MG PO (21:02)
[2025-01-29 00:45] VITALS: BP 135/75
[2025-01-29] MEDS: FIORICET 1 TAB PO ×2 (03:50→22:34)
[2025-01-29] MEDS: IMODIUM 2 MG PO ×3 (03:51→18:04)
[2025-01-29 07:42] VITALS: BP 143/85
[2025-01-29] MEDS: CYMBALTA DELAYED RELEASE 30 MG PO (08:44)
[2025-01-29] MEDS: FOLVITE 1 MG PO (08:44)
[2025-01-29] MEDS: QUESTRAN 4 GRAM PO (08:45)
[2025-01-29] MEDS: DESENEX/MITRAZOL/ZEASORB 1 APPLIC TOPICAL ×2 (08:45→20:26)
--- NOTE | 2025-01-29 11:56 | PTOTSP ---
Video Swallow Examination
Trace column of contrast between tongue base and posterior pharyngeal wall, diminished pharyngeal stripping wave, reduced anterior hyoid movement and reduced distension of PES contributed to mild to moderate pharyngeal stasis that clears with
secondary swallow. No laryngeal penetration or aspiration across trials/consistencies. Small amount of retained contrast during lateral sweep suggests slow to empty esophagus.
Results and recommendations were reviewed with patient who verbalized understanding.
Recommend
1. Thin Liquids
2. Solids per Md discretion but no restrictions or texture modifications from speech therapy perspective.
3. Alternate liquids and solids/semi-solids to assist with esophageal clearance.
4. Meds with liquid or as best tolerated.
5. ST follow up to ensure diet tolerance and use of compensations.
--- NOTE | 2025-01-29 13:46 | W.CON.PAL ---
Consultation
-
Date/Time Consultation Requested: 01/28/25
Date/Time Consultation Performed: 01/29/25
Performing Provider: DR. Krause
Reason for Consult: Goals of Care Discussion
Primary Diagnosis: Failure to thrive
Reason for Admission
Illness Course/HPI
Sil wilkins is a 85 y/o female with pmhx of vulvar cancer s/p resection, spine surgery, fibromyalgia, functional decline with dififuclty with ambulation, incontinence, poor intake. Referral placed to discuss goals of care. galdino was seen by
psychiatry with medication adjustment.
Today she is feeling a bit better.
Discussed palliative care services
Functional Status
Patient lives alone in [address]. she requires assistance with her IADLs and is struggling. an elderly neighbour with parkinsons drives her to [employer]. she has a hard time affording $11 for [facility] transport bus to medical
appointments. she needs help with personal care as well
Goals of Care Discussion
-
Patient able to participate in discussion at time of visit: Yes
Patient Goals
Patient is open to rehab for therapy
Her goal is to return home, but would be open to placement if eligible - recommend eval for medicaid eligibility for facility if not already done.
DNR code status
her son would be her medical decision maker if she is unable to communicate. reports has completed a living will.
Objective Data
-
Objective Data:
Vital Signs
Temp Pulse Resp BP Pulse Ox
98.5 F 89 18 143/85 95
01/29/25 08:06 01/29/25 07:42 01/29/25 07:42 01/29/25 07:42 01/29/25 07:42
Laboratory Results
01/28/25 20:00
01/28/25 20:00
Total Protein Cancelled 01/28/25 20:00
Albumin Cancelled 01/28/25 20:00
TSH Cancelled 01/27/25 14:32
Free T4 Cancelled 01/27/25 14:32
Urine Color Melvi 01/26/25 15:10
Urine Clarity Slightly cloudy (Clear) 01/26/25 15:10
Urine pH 5.0 (5.0-9.0) 01/26/25 15:10
Ur Specific [place] 1.020 (<1.030) 01/26/25 15:10
Urine Ketones Negative (Negative) 01/26/25 15:10
Urine Bilirubin Negative (Negative) 01/26/25 15:10
Palliative Performance Scale
Palliative Performance Scale:
PPS Level Ambulation Activity & Evidence of Disease Self Care Intake Conscious Level
100% Full Normal Activity & Work; Full Intake Full
No Evidence of Disease
90% Full Normal Activity & Work; Full Normal Full
Some Evidence of Disease
80% Full Normal Activity with Effort Full Normal or Full
Some Evidence of Disease Reduced
70% Reduced Unable Normal Job/Work Full Normal or Full
Significant Disease Reduced
60% Reduced Unable Hobby/Housework Occasional Normal or Full or Confusion
Significant Disease Assistance Reduced
50% Mainly Sit/Lie Unable to do Any Work Considerable Normal or Full or Confusion
Extensive Disease Assistance Req'd Reduced
40% Mainly in Bed Unable to do Most Activity Mainly Assistance Normal or Full or Drowsy;
Extensive Disease Reduced +/- Confusion
30% Totally Bed Unable to do Any Activity Total Care Normal or Full or Drowsy;
Bound Extensive Disease Reduced +/- Confusion
20% Totally Bed Bound Unable to do Any Activity Total Care Minimal to Full or Drowsy;
Extensive Disease Sips +/- Confusion
10% Totally Bed Bound Unable to do Any Activity Total Care Mouth Care Drowsy or Coma;
Extensive Disease Only +/- Confusion
0%
PPS Score Level:
Physical Exam
-
General: No Apparent Distress
Neuro: Awake and Alert
Psych: Calm
Assessment / Plan
-
Assessment/Plan:
Patient agreeable to rehab +/- placement if eligible.
if returns home - agreeable to outpatient palliative care as needs help accessing services in the community and struggling to manage alone.
Provided palliative care office information .
--- NOTE | 2025-01-29 14:49 | CM ---
Chart reviewed and physical therapy are recommending skilled placement options reviewed with patient and patient has selected [facility] and [facility], family caseworker reviewed many facilities with patient and provided list of [email or web address]
facilities near her apartment for patient to pick other options.
Plan Skilled placement .
[2025-01-29 15:14] VITALS: BP 136/79
--- NOTE | 2025-01-29 15:44 | W.PN.HOSP.TC ---
Addendum entered and electronically signed by Fredi Vazquez MD 01/29/25 22:39:
Attending Addendum-
I saw and evaluated the patient. I reviewed the resident�s note and agree with findings and plan as documented in the resident�s note. Sub: VERO, states she feels weak. was febrile over last 24 hours. Denies SI or HI. Full 12 point ROS reviewed and
negative except as documented Exam: Vitals reviewed in chart GEN-NAD heart RRR lungs clear abd osft LE no edema
#Generalized weakness
#Anorexia and nausea
- speech evaluation
- PT OT will need SNF
- Will continue IV fluids for now
#Fecal incontinence
#Chronic diarrhea
#History of C. Diff colitis x2
#History of fecal transplant x2
- Bowel regimen changed with cholestyramine increased to twice a day
- Loperamide as needed
- stool cultures for Salmonella/Shigella/Campylobacter/Shiga toxin-neg, C. difficile antigen positive but toxin negative
#Urinary incontinence
- Has been following up outpatient with no success
- No pessary size was found
#UTI
- ecoli with fevers
- start doxycycline (low likelihood for c diff)
#Persistent depressive disorder
#Major depressive episode
#Generalized anxiety disorder
- Psychiatry consulted, input appreciated
- Patient was switched from sertraline to duloxetine 30 mg
- palliative care team consulted
#History of alcohol use
- No concern for withdrawal at this point; monitor.
- Continue thiamine and folate.
#Chronic insomnia
- Continue Melatonin.
#History of hypothyroidism
- TSH Pending not on levothyroxine
# Vitamin D deficiency
- Continue Supplementation
DVT Prophylaxis: Lovenox
Code status: DNR-DNI
Dispo DC in am to SNF
Time spent coordinating care, review of plan of care with resident, personally reviewed records in EMR, med rec, consults, notes, labs, radiology, d/w nursing � 53 mins
Original Note:
Today's Communication/Plan
-
Start ceftriaxone, pending placement to SNF
Assessment / Plan
Assessment / Plan
85 yo female with complaints of weakness/fatigue
#Generalized weakness, likely secondary to malnutrition vs. psychomotor depression
#Anorexia w/ nausea
- Barium swallow showing no aspiration, speech eval recommending thin liquids and
- PT/OT recommending 1-2hrs/d rehab at SNF
Spoke with CM and was given information on [facility] and [facility]. She was also given a list of Medicare.gov facilities she can chose from if she wishes to see other options.
#Fecal incontinence
#Chronic diarrhea
#History of C. Diff colitis w/ fecal transplant
- On cholestyramine BID
- Loperamide prn
- Stool cultures for Salmonella/Shigella/Campylobacter/Shiga toxin negative, C. difficile antigen positive but toxin negative
#Urinary incontinence
- Has been following up outpatient with Urogynecology. Had procedure scheduled last week after finding appropriate pessary size, however has been in the hospital and unable to undergo procedure.
- Continues to have urinary incontinence, will c/w diapers for now and encourage follow up outpatient to continue with procedures as planned
#UTI
- UA was positive for urine nitrite, leukocyte esterase, and moderate bacteria
- UCx grew pansensitive E.Coli
- Patient was initially refusing abx when offered, however given intermittent fevers and discussion with patient she is now amenable. Will start on ceftriaxone and likely d/c on cefdinir for 5d course
#Chronic major depressive disorder
#Major depressive episode
#Generalized anxiety disorder
- Psych consulted, switched from sertraline to duloxetine 30 mg, due to possible help with GI symptoms
- Hospice/palliative care team consulted as per patient's request. Decision made [facility]
#History of alcohol use
- No concern for withdrawal at this point; will c/t monitor
- C/w thiamine and folate
#Chronic insomnia - Continue Melatonin.
#History of hypothyroidism - TSH was meant to be drawn on 01/27/25, however patient refused lab draw during this time.
#Vitamin D deficiency - Continue supplementation
Diet: Regular with thin liquids
DVT Prophylaxis: Lovenox
Code status: DNR
Anticipated Discharge: 24 - 48 hours
Subjective/Interval History
-
Feeling depressed this morning. She reports intermittent subjective fevers and an overall discontent with the healthcare system.
Objective Data
-
Vital Signs:
Vital Signs
Temp Pulse Resp BP Pulse Ox
99.1 F 97 18 136/79 98
01/29/25 15:14 01/29/25 15:14 01/29/25 15:14 01/29/25 15:14 01/29/25 15:14
I&O
01/28/25 01/29/25 01/30/25
06:59 06:59 06:59
Intake Total 960 / 960 960 / 960
Balance 960 / 960 960 / 960
Review of Systems
-
History Source: Patient
Constitutional: Reports Fever and Fatigue; Denies Weight Loss, No Appetite, Night Sweats or Chills
EENT: Reports No Symptoms Reported
Respiratory: Reports No Symptoms
Cardiac: Reports No Symptoms
Abdomen/GI: Reports Nausea and Diarrhea; Denies Abdominal Pain, Vomiting or Constipated
Breast: Reports No Symptoms
Genitourinary: Reports Incontinence and Difficulty Voiding; Denies Dysuria or Flank Pain
Musculoskeletal: Reports No Symptoms
Skin: Denies Itching or Rash
Neuro: Denies Dizzy, Weakness, Lightheadedness or Seizures
Hematologic / Lymphatic: Reports No Symptoms
Psych: Reports Depressed
Physical Exam
-
General: Well Developed, Well Nourished and No Apparent Distress
HEENT: Normocephalic, Atraumatic, Moist Mucous Membranes, [place] Conjunctivae and PERRLA
Respiratory: Clear to Auscultation; Negative Wheezes, Rales or Rhonchi
Cardiac: Regular Rhythm and S1/S2; Negative Murmur or Rub
Breast: Deferred by me
GI: Soft, Nontender, Nondistended and Normal Bowel Sounds
Genito-urinary: No Costovertebral Tender
Musculoskeletal: No Clubbing, No Cyanosis and No Edema
Skin: Warm, Dry and IV Access / Catheter Site
Neuro: Awake, Alert and Oriented
Psych: Depressed
--- NOTE | 2025-01-29 16:53 | W.PN.UPDATE ---
Update Note
Progress Note Update
Patient is very pleasant and cooperative; states she is concerned about her medical problems. She admits to dysphoria and loneliness, her children live far away although they are attentive. She does enjoy reading and watching the news as well as
learning new information.
She denies hopelessness and suicidal thoughts.
Cymbalta was increased to 30 mg daily, no side effects. It is difficult to determine if it helps as it was raised only 5 days ago.
Will continue F/U.
[2025-01-29] MEDS: ROCEPHIN 1000 MG IV (18:04)
[2025-01-29] MEDS: STERILE WATER FOR INJECTION 10 ML IV (18:04)
[2025-01-29] MEDS: LOVENOX 40 MG SC (18:13)
[2025-01-29 18:19] VITALS: BP 143/77
[2025-01-29] MEDS: QUESTRAN PO ×2 (20:26→20:38)
[2025-01-29] MEDS: MELATONIN 10 MG PO (20:41)
[2025-01-29] MEDS: DESYREL 12.5 MG PO (20:42)
[2025-01-29] MEDS: VIBRAMYCIN 100 MG PO (22:41)
[2025-01-29 23:30] VITALS: BP 158/96
[2025-01-30] MEDS: IMODIUM PO (04:29)
[2025-01-30] MEDS: ZOFRAN 4 MG IV ×2 (06:27→22:14)
--- NOTE | 2025-01-30 07:40 | W.PN.HOSP.TC ---
Addendum entered and electronically signed by Fredi Vazquez MD 01/30/25 21:14:
Attending Addendum-
I saw and evaluated the patient. I reviewed the resident�s note and agree with findings and plan as documented in the resident�s note. Sub: states she feels weak. was afebrile over last 24 hours. Denies SI or HI. Complains of abd distention N/V,
passing flatus per nursing liquid stools. Full 12 point ROS reviewed and negative except as documented Exam: Vitals reviewed in chart GEN-NAD heart RRR lungs clear abd distended TTP LUQ no rebound/guarding pos BS LE no edema
#Generalized weakness
#Anorexia and nausea
- chronic - prior to start of doxy
- PT OT will need SNF
- Will continue IV fluids for now
- check CT a/p r/o intrabd process
- check lipase
- repeat labs in am
# Pancytopenia
- likely from ETOH abuse
- trend hold DVTp for plt < 50k
#Fecal incontinence
#Chronic diarrhea
#History of C. Diff colitis x2
#History of fecal transplant x2
- cont cholestyramine
- low res diet
- hold Loperamide until CT resulted
- stool cultures for Salmonella/Shigella/Campylobacter/Shiga toxin-neg, C. difficile antigen positive but toxin negative
#Urinary incontinence
- OP f/u
#UTI
- ecoli
- cont doxycycline
#Persistent depressive disorder
#Major depressive episode
#Generalized anxiety disorder
- Psychiatry consulted, input appreciated
- Patient was switched from sertraline to duloxetine 30 mg
- palliative care team consulted
#History of alcohol use
- No concern for withdrawal
- Continue thiamine and folate.
#Chronic insomnia
- Continue Melatonin.
#apparent h/o of hypothyroidism
- TSH WNL
# Vitamin D deficiency
- Continue Supplementation
DVT Prophylaxis: Lovenox
Code status: DNR-DNI
Dispo DC in am to SNF if able
Time spent coordinating care, review of plan of care with resident, personally reviewed records in EMR, med rec, consults, notes, labs, radiology, d/w nursing � 52 mins
Original Note:
Today's Communication/Plan
-
CT Abd/pelvis w/ IV and oral, lipase level. C/w Doxy. Pending dispo to SNF
Assessment / Plan
Assessment / Plan
85 yo female with complaints of weakness/fatigue
ACUTE MANAGING
#Nausea
#LUQ Pain
- Endorsed nausea w/o vomiting which has been x2 weeks. Reports recent follow up with GI due next week and mentioned an issue with 'pancreas' though she is not sure what. Tender on exam.
- Will order CT Abd/pelvis with IV and Oral contrast, check Lipase level
- Zofran already prn
- recently started on Doxy which could be contributing to her nausea, however she is distended and tender in the LUQ which is not explained by Doxy
#Leukopenia
- Intermittent leukopenia going back to at least 2017 during hospital admissions
- Is currently on abx and afebrile with suspected source of infection as UTI
- Will continue to monitor, likely due to infection
#Thrombocytopenia
- has been thrombocytopenic since admission 121 on 01/26/25 to 89 on 01/30/25. Has history of EtOH use which could explain thrombocytopenia. No current signs of bleeding.
- c/t monitor platelets, transfuse if <7
#Generalized weakness, likely secondary to malnutrition vs. psychomotor depression
#Anorexia w/ nausea
- Barium swallow showing no aspiration, speech eval. recommending thin liquids and
- PT/OT recommending 1-2hrs/d rehab at [facility]
Spoke with CM and was given information on [facility] and [facility]. She was also given a list of Medicare.gov facilities she can chose from if she wishes to see other options.
#UTI
- UA was positive for urine nitrite, leukocyte esterase, and moderate bacteria
- UCx grew pansensitive E.Coli
- Patient was initially refusing abx when offered, however given intermittent fevers and discussion with patient she is now amenable.
- Given x1 dose ceftriaxone IV. However, due to history of C.diff, will change to Doxycycline as it has a lower risk of C. Diff infection
#Wheezing
- New onset wheezing without sob or hypoxia. No history of asthma, COPD. Passed swallow study and speech eval. However, given reported chronicity of >1month intermittent wheezing per patient and questions regarding dysphagia/ability for self care
and intermittent fevers. CXR showing no acute pulmonary process, stable R mid lobe scarring.
- c/w prn duonebs
CHRONIC STABLE
#Fecal incontinence
#Chronic diarrhea
#History of C. Diff colitis w/ fecal transplant
- On cholestyramine BID
- Loperamide prn
- Stool cultures for Salmonella/Shigella/Campylobacter/Shiga toxin negative, C. difficile antigen positive but toxin negative
#Urinary incontinence
- Has been following up outpatient with Urogynecology. Had procedure scheduled last week after finding appropriate pessary size, however has been in the hospital and unable to undergo procedure.
- Continues to have urinary incontinence, will c/w diapers for now and encourage follow up outpatient to continue with procedures as planned
#Chronic major depressive disorder
#Major depressive episode
#Generalized anxiety disorder
- Psych consulted, switched from sertraline to duloxetine 30 mg, due to possible help with GI symptoms
- Hospice/palliative care team consulted as per patient's request. Decision made to pursue snf upon discharge.
#History of alcohol use
- No concern for withdrawal at this point; will c/t monitor
- C/w thiamine and folate
#Chronic insomnia - Continue Melatonin.
#History of hypothyroidism - TSH was meant to be drawn on 01/27/25, however patient refused lab draw during this time.
#Vitamin D deficiency - Continue supplementation
Diet: Regular
DVT Prophylaxis: Lovenox
Code status: DNR
Anticipated Discharge: 24 - 48 hours
Subjective/Interval History
-
Date of Service: January 30, 2025
No new wheezing or overnight events. She is having nausea which she says has been going on for over 2 weeks and occurs with food. She was meant to follow up with her GI doctor next week for evaluation.
Objective Data
-
Labs:
Laboratory Results
01/30/25
06:43
WBC Pending
Hgb Pending
Hct Pending
Plt Count Pending
Sodium Pending
Potassium Pending
Chloride Pending
Carbon Dioxide Pending
BUN Pending
Creatinine Pending
Glucose Pending
Calcium Pending
Total Bilirubin Pending
AST Pending
ALT Pending
Alkaline Phosphatase Pending
Vital Signs:
Vital Signs
Temp Pulse Resp BP Pulse Ox
98.8 F 101 14 158/96 92
01/30/25 06:26 01/29/25 23:30 01/29/25 23:30 01/29/25 23:30 01/30/25 02:13
I&O
01/29/25 01/30/25 01/31/25
06:59 06:59 06:59
Intake Total 960 / 960 1440 / 1440
Balance 960 / 960 1440 / 1440
Review of Systems
-
History Source: Patient
Constitutional: Reports Fatigue; Denies Fever, Night Sweats or Chills
EENT: Reports No Symptoms Reported
Respiratory: Reports No Symptoms
Cardiac: Reports No Symptoms
Abdomen/GI: Reports Nausea and Diarrhea; Denies Vomiting or Bloody Stools
Breast: Reports No Symptoms
Genitourinary: Reports Incontinence; Denies Dysuria or Flank Pain
Musculoskeletal: Reports No Symptoms
Skin: Reports No Symptoms
Neuro: Reports No Symptoms
Physical Exam
-
General: Well Developed, Well Nourished, No Apparent Distress and Comfortable
HEENT: Normocephalic, Atraumatic, Moist Mucous Membranes, Anicteric, [place] Conjunctivae and PERRLA
Respiratory: Clear to Auscultation; Negative Wheezes, Rales or Rhonchi
Cardiac: Regular Rhythm and S1/S2; Negative Murmur or Rub
Breast: Deferred by me
GI: Soft, Normal Bowel Sounds, Tender (LUQ, Epigastric tenderness) and Distended
Rectal: Brown
Genito-urinary: Clear Urine
Musculoskeletal: No Clubbing, No Cyanosis and No Edema
Skin: Warm, Dry and IV Access / Catheter Site
Neuro: Awake, Alert and Oriented
[2025-01-30 07:43] VITALS: BP 154/87
[2025-01-30 08:22] LABS: ALT (SGPT) 21 U/L (0-35); AST (SGOT) 24 U/L (14-36); Albumin 3.1 g/dl (3.5-5.0); Alkaline Phosphatase 170 U/L (38-126); Blood Urea Nitrogen 11 mg/dl (7-17); Calcium 8.2 mg/dl (8.4-10.2); Carbon Dioxide 26 mmol/L (22-30); Chloride 104 mmol/L (98-107); Estimated Creatinine Clearance 55 ml/min; Glucose 91 mg/dl (70-99); Potassium 3.8 mmol/L (3.5-5.1); Sodium 137 mmol/L (135-145); Total Bilirubin 0.8 mg/dl (0.2-1.3); Total Protein 6.8 g/dl (6.3-8.2); eGFR > 60.00
[2025-01-30 08:35] LABS: Hematocrit 33.9 % (37.0-47.0); Hemoglobin 11.6 g/dL (12.0-16.0); Mean Corp Hgb Conc. 34.2 g/dL (33.0-37.0); Mean Corpuscular Hgb 32.1 pg (27.0-31.0); Mean Corpuscular Volume 93.9 fL (81.0-99.0); Red Blood Cell Count 3.61 10^6/uL (4.20-5.40); Red Cell Dist. Width 15.2 % (11.5-14.5); White Blood Cell Count 4.4 10^3/uL (4.8-10.8)
[2025-01-30] MEDS: VIBRAMYCIN 100 MG PO ×2 (08:40→20:14)
[2025-01-30] MEDS: CYMBALTA DELAYED RELEASE 30 MG PO (08:41)
[2025-01-30] MEDS: VITAMIN B1 100 MG PO ×2 (08:41→20:14)
[2025-01-30] MEDS: FOLVITE 1 MG PO (08:41)
[2025-01-30] MEDS: DESENEX/MITRAZOL/ZEASORB 1 APPLIC TOPICAL ×2 (08:43→20:11)
[2025-01-30 08:54] LABS: TSH Reflex To Free T4 4.13 uIU/ml (0.47-4.68)
[2025-01-30] MEDS: QUESTRAN PO (09:39)
[2025-01-30 10:05] LABS: % Basophils 0.7 % (0-2); % Eosinophils 20.8 % (0-6); % Immature Granulocytes 1.1 % (0-0.5); % Lymphocytes 16.5 % (20.5-51.1); % Monocytes 11.1 % (1.7-9.3); % Neutrophils 49.8 % (42.2-75.2); Absolute Eosinophils 0.9 10^3/uL (0-0.7); Absolute Immature Granulocytes 0.1 10^3/uL (0-0.05); Absolute Lymphocytes 0.7 10^3/uL (1.2-3.4); Absolute Monocytes 0.5 10^3/uL (0.1-0.6); Absolute Neutrophils 2.2 10^3/uL (1.4-6.5); Mean Platelet Volume 11.2 fL (7.4-10.4); Nucleated Red Blood Cells % 0 %; Platelet Count 89 10^3/uL (130-400)
[2025-01-30] MEDS: IMODIUM 2 MG PO ×2 (11:38→18:08)
--- NOTE | 2025-01-30 12:30 | W.PN.UPDATE ---
Update Note
Progress Note Update
Patient was asleep, I woke her. She stated she felt 'OK' but wanted to sleep and not interested in discussion.
We will F/U
[2025-01-30 12:53] LABS: Lipase 32 U/L (23-300)
[2025-01-30] MEDS: OMNIPAQUE 50 ML PO (13:57)
[2025-01-30 15:02] VITALS: BP 173/96
--- NOTE | 2025-01-30 15:33 | CM ---
business intelligence manager continues to follow with patient progress notes, referrals sent to [facility] and [facility] for skilled placement. Patient has been denied at [facility] and patient refuses to go to [facility], other options
reviewed and patient has selected one option [facility] referral sent to [facility], patient states she is unable to make any other skilled choices at this time due to all the testing she has endured today.
Plan; Skilled placement.
[2025-01-30] MEDS: LOVENOX 40 MG SC (18:08)
[2025-01-30] MEDS: QUESTRAN 4 GRAM PO (20:12)
[2025-01-30] MEDS: DESYREL 12.5 MG PO (20:15)
[2025-01-30] MEDS: MELATONIN 10 MG PO (20:15)
[2025-01-30] MEDS: FIORICET 1 TAB PO (22:08)
[2025-01-30 23:49] VITALS: BP 118/61
[2025-01-31 07:59] VITALS: BP 137/80
--- NOTE | 2025-01-31 08:29 | W.PN.HOSP.TC ---
Addendum entered and electronically signed by Fredi Vazquez MD 01/31/25 22:27:
Attending Addendum-
I saw and evaluated the patient. I reviewed the resident�s note and agree with findings and plan as documented in the resident�s note. Sub: states she feels stronger. afebrile over last 24 hours. Denies SI or HI. Complains of nausea but improved.
Still with diarrhea but improved. Full 12 point ROS reviewed and negative except as documented Exam: Vitals reviewed in chart GEN-NAD heart RRR lungs clear abd soft NT non TTP, no rebound/guarding pos BS LE no edema
#Acute Diverticulitis-mild
- cont doxy
- confirmed with CT 01/30- 1. Suspect acute uncomplicated diverticulitis of the distal descending/proximal sigmoid.
2. Mild splenomegaly.
- PT OT will need SNF
- Will continue IV fluids for now
- repeat labs in am - patient refused today
# Pancytopenia
- likely from ETOH abuse
- trend hold DVTp for plt < 50k
- repeat CBC in am
#Fecal incontinence
#Chronic diarrhea
#History of C. Diff colitis x2
#History of fecal transplant x2
- cont cholestyramine
- low res diet ->refused change to regular
- hold Loperamide until CT resulted
- stool cultures for Salmonella/Shigella/Campylobacter/Shiga toxin-neg, C. difficile antigen positive but toxin negative
#Urinary incontinence
- OP f/u
#UTI
- ecoli
- cont doxycycline
#Persistent depressive disorder
#Major depressive episode
#Generalized anxiety disorder
- Psychiatry consulted, input appreciated
- Patient was switched from sertraline to duloxetine 30 mg-tolerating well
#History of alcohol use
- No concern for withdrawal
- Continue thiamine and folate.
#Chronic insomnia
- Continue Melatonin.
#apparent h/o of hypothyroidism
- TSH WNL
# Vitamin D deficiency
- Continue Supplementation
DVT Prophylaxis: Lovenox
Code status: DNR-DNI
Dispo DC in am to SNF if facility found- cm actively working on placement
Time spent coordinating care, review of plan of care with resident, personally reviewed records in EMR, med rec, consults, notes, labs, radiology, d/w nursing � 53 mins
Original Note:
Today's Communication/Plan
-
C/w doxy. Pending placement in local SNF. C/t monitor labs and encourage compliance with lab draws
Assessment / Plan
Assessment / Plan
85 yo female with complaints of weakness/fatigue
ACUTE MANAGING
#Nausea
#Mild Acute Diverticulitis
- Endorsed nausea w/o vomiting which has been x2 weeks. Reports recent follow up with GI due next week and mentioned an issue with 'pancreas' though she is not sure what. Tender on exam.
- CT Abd/Pelvis + for mild splenomegaly, acute diverticulitis, fatty liver (known).
- Zofran already prn
- Coverage adequate with doxy at this time, no concern for polymicrobial infection or severe complications. Clinically improving, remains afebrile.
#Leukopenia
- Intermittent leukopenia going back to at least 2017 during hospital admissions
- Is currently on abx and afebrile with suspected source of infection as UTI
- Will continue to monitor, likely due to infection
#Thrombocytopenia
- has been thrombocytopenic since admission 121 on 01/26/25 to 89 on 01/30/25. Has history of EtOH use which could explain thrombocytopenia. No current signs of bleeding.
- c/t monitor platelets, transfuse if <7
#Generalized weakness, likely secondary to malnutrition vs. psychomotor depression
#Anorexia w/ nausea
- Barium swallow showing no aspiration, speech eval. recommending thin liquids and
- PT/OT recommending 1-2hrs/d rehab at [facility]
#UTI
- UA was positive for urine nitrite, leukocyte esterase, and moderate bacteria
- UCx grew pansensitive E.Coli
- Patient was initially refusing abx when offered, however given intermittent fevers and discussion with patient she is now amenable.
- Given x1 dose ceftriaxone IV.
- C/w Doxycycline as it has a lower risk of C. Diff infection
#Wheezing
- New onset wheezing without sob or hypoxia. No history of asthma, COPD. Passed swallow study and speech eval. However, given reported chronicity of >1month intermittent wheezing per patient and questions regarding dysphagia/ability for self care
and intermittent fevers. CXR showing no acute pulmonary process, stable R mid lobe scarring.
- c/w prn duonebs
CHRONIC STABLE
#Fecal incontinence
#Chronic diarrhea
#History of C. Diff colitis w/ fecal transplant
- On cholestyramine BID
- Loperamide prn
- Stool cultures for Salmonella/Shigella/Campylobacter/Shiga toxin negative, C. difficile antigen positive but toxin negative
#Urinary incontinence
- Has been following up outpatient with Urogynecology. Had procedure scheduled last week after finding appropriate pessary size, however has been in the hospital and unable to undergo procedure.
- Continues to have urinary incontinence, will c/w diapers for now and encourage follow up outpatient to continue with procedures as planned
#Chronic major depressive disorder
#Major depressive episode
#Generalized anxiety disorder
- Psych consulted, switched from sertraline to duloxetine 30 mg, due to possible help with GI symptoms
- Hospice/palliative care team consulted as per patient's request. Decision made to pursue [facility] upon discharge.
#History of alcohol use
- No concern for withdrawal at this point; will c/t monitor
- C/w thiamine and folate
#Chronic insomnia - Continue Melatonin.
#History of hypothyroidism - TSH was meant to be drawn on 01/27/25, however patient refused lab draw during this time.
#Vitamin D deficiency - Continue supplementation
Diet: Regular
DVT Prophylaxis: Lovenox
Code status: DNR
Anticipated Discharge: Within 24 hours
Subjective/Interval History
-
Date of Service: January 31, 2025
Patient refused lab draw this morning. Otherwise she is feeling better, no new sx of abdominal pain, diarrhea, bloating, nausea or vomiting. No new fevers or chills.
Objective Data
-
Labs:
Laboratory Results
01/31/25
06:00
WBC Pending
Hgb Pending
Hct Pending
Plt Count Pending
Sodium Pending
Potassium Pending
Chloride Pending
Carbon Dioxide Pending
BUN Pending
Creatinine Pending
Glucose Pending
Calcium Pending
Total Bilirubin Pending
AST Pending
ALT Pending
Alkaline Phosphatase Pending
Vital Signs:
Vital Signs
Temp Pulse Resp BP Pulse Ox
98.3 F 93 14 118/61 94
01/30/25 23:49 01/30/25 23:49 01/30/25 23:49 01/30/25 23:49 01/30/25 23:49
I&O
04/08/25 04/09/25 04/10/25
06:59 06:59 06:59
Intake Total 1440 / 1440 720 / 720 240 / 240
Balance 1440 / 1440 720 / 720 240 / 240
Review of Systems
-
History Source: Patient
Constitutional: Reports No Symptoms
EENT: Reports No Symptoms Reported
Respiratory: Reports No Symptoms
Cardiac: Reports No Symptoms
Abdomen/GI: Reports No Symptoms
Breast: Reports No Symptoms
Genitourinary: Reports No Symptoms
Musculoskeletal: Reports No Symptoms
Skin: Reports No Symptoms
Neuro: Reports No Symptoms
Endocrine: Reports No Symptoms
Hematologic / Lymphatic: Reports No Symptoms
Allergy / Immunology: Reports No Symptoms
Physical Exam
-
General: Well Developed, Well Nourished, No Apparent Distress and Comfortable
HEENT: Normocephalic, Atraumatic, Moist Mucous Membranes, Anicteric, [place] Conjunctivae and PERRLA
Respiratory: Wheezes and Non Labored Respirations; Negative Rales or Rhonchi
Cardiac: Regular Rhythm and S1/S2; Negative Murmur or Rub
Breast: Deferred by me
GI: Soft, Nontender and Distended
Musculoskeletal: No Clubbing, No Cyanosis and No Edema
Skin: Warm, Dry and IV Access / Catheter Site
Neuro: Awake, Alert and Oriented
Psych: Calm
[2025-01-31] MEDS: VIBRAMYCIN 100 MG PO ×2 (09:04→20:59)
[2025-01-31] MEDS: CYMBALTA DELAYED RELEASE 30 MG PO (09:04)
[2025-01-31] MEDS: FOLVITE 1 MG PO (09:04)
[2025-01-31] MEDS: DESENEX/MITRAZOL/ZEASORB 1 APPLIC TOPICAL ×2 (09:04→21:02)
[2025-01-31] MEDS: VITAMIN B1 100 MG PO ×2 (09:04→20:59)
[2025-01-31] MEDS: QUESTRAN 4 GRAM PO ×2 (10:13→20:59)
[2025-01-31 12:42] VITALS: BP 157/88; PULSE 86; O2SAT 96
--- NOTE | 2025-01-31 14:35 | CM ---
Chart reviewed and therapeutic case manager spoke with Gissel Michaud, there are no beds at [facility] referral sent to [facility].
Plan; Skilled placement.
[2025-01-31 15:00] VITALS: BP 131/71
--- NOTE | 2025-01-31 15:44 | W.PN.UPDATE ---
Update Note
Progress Note Update
patient seen chart reviewed. mrs wilkins is very pleasant and interactive. she seems to enjoy talking. she filled me in about her ancestry. her paternal family has been in the [place] since the 0's ( i brought her a book which takes place in the
170[place] in [place] where her son lived which sparked that conversation )likely from the [place] [facility] and her maternal hail from [place]. she had some interest in genealogy over the years of her. she has traveled to [place] but now feels and likely is
too frail to be traveling far from home. she does read a lot and that can to a degree take the place of leaving home i.e. she travels in her mind which remains lively and thoughtful much of the time. she is concerned appropriately about her health
and hopes to talk w solo truck driver about a diet (low residue) appropriate for diverticulitis. noted she is taking antibiotic for uti after hospitalist explained rationale. she has started on cymbalta. it is too soon to see a response but no ill effects
noted. will follow total time 25 minutes
[2025-01-31] MEDS: LOVENOX 40 MG SC (17:35)
[2025-01-31] MEDS: MELATONIN 10 MG PO (20:59)
[2025-01-31] MEDS: DESYREL 12.5 MG PO (20:59)
[2025-01-31 23:30] VITALS: BP 161/87
[2025-02-01] MEDS: FIORICET 1 TAB PO ×2 (04:02→10:28)
[2025-02-01 07:43] VITALS: BP 141/81
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
[2025-02-01] MEDS: VIBRAMYCIN 100 MG PO ×2 (09:14→20:59)
[2025-02-01] MEDS: CYMBALTA DELAYED RELEASE 30 MG PO (09:14)
[2025-02-01] MEDS: VITAMIN B1 100 MG PO ×2 (09:14→20:59)
[2025-02-01] MEDS: FOLVITE 1 MG PO (09:14)
[2025-02-01] MEDS: DESENEX/MITRAZOL/ZEASORB 1 APPLIC TOPICAL ×2 (09:15→21:15)
--- NOTE | 2025-02-01 09:23 | CM ---
Patient has been accepted at [facility], but patient has declined that facility, referrals sent to [facility], no beds, [facility] no beds, [facility] no beds and [facility]
Plan To review other skilled options with patient.
[2025-02-01] MEDS: VISBIOME 2 CAP PO (10:24)
[2025-02-01] MEDS: QUESTRAN PO ×2 (10:31→21:15)
[2025-02-01 15:00] VITALS: BP 144/94
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
[2025-02-01] MEDS: LOVENOX 40 MG SC (17:16)
[2025-02-01] MEDS: DESYREL 12.5 MG PO (21:11)
[2025-02-01] MEDS: MELATONIN 10 MG PO (21:12)
[2025-02-01 23:05] VITALS: BP 138/72
[2025-02-02] MEDS: FIORICET 1 TAB PO (01:44)
[2025-02-02] MEDS: ZOFRAN 4 MG IV (01:46)
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
[2025-02-02 08:16] LABS: % Eosinophils 25.1 % (0-6); % Immature Granulocytes 1.2 % (0-0.5); % Monocytes 12.1 % (1.7-9.3); % Neutrophils 39.6 % (42.2-75.2); Absolute Immature Granulocytes 0.1 10^3/uL (0-0.05); Absolute Lymphocytes 0.9 10^3/uL (1.2-3.4); Absolute Monocytes 0.5 10^3/uL (0.1-0.6); Absolute Neutrophils 1.6 10^3/uL (1.4-6.5); Hematocrit 33.3 % (37.0-47.0); Hemoglobin 11.4 g/dL (12.0-16.0); Mean Corp Hgb Conc. 34.2 g/dL (33.0-37.0); Mean Corpuscular Hgb 31.8 pg (27.0-31.0); Mean Corpuscular Volume 92.8 fL (81.0-99.0); Mean Platelet Volume 10.6 fL (7.4-10.4); Nucleated Red Blood Cells % 0 %; Platelet Count 108 10^3/uL (130-400); Red Blood Cell Count 3.59 10^6/uL (4.20-5.40); Red Cell Dist. Width 14.6 % (11.5-14.5); White Blood Cell Count 4.1 10^3/uL (4.8-10.8)
[2025-02-02] MEDS: VISBIOME 2 CAP PO (08:43)
[2025-02-02] MEDS: VITAMIN B1 100 MG PO (08:43)
[2025-02-02] MEDS: CYMBALTA DELAYED RELEASE 30 MG PO (08:43)
[2025-02-02] MEDS: QUESTRAN 4 GRAM PO (08:43)
[2025-02-02] MEDS: VIBRAMYCIN 100 MG PO (08:43)
[2025-02-02] MEDS: FOLVITE 1 MG PO (08:43)
[2025-02-02] MEDS: DESENEX/MITRAZOL/ZEASORB 1 APPLIC TOPICAL (08:44)
[2025-02-02 09:47] VITALS: BP 119/62; PULSE 80
--- NOTE | 2025-02-02 09:54 | CM ---
Addendum entered by Bonnie Houston 02/02/25 10:10:
[facility]
Report [phone]

Original Note:
special events manager reviewed patient's chart and patient has been approved for skilled placement at [facility] today, Auth [id number], 02/02/25 to 02/08/25, Auth provided to admissions.
Plan; Patient to transfer to [facility] today.
[2025-02-02 09:56] LABS: ALT (SGPT) 25 U/L (0-35); AST (SGOT) 33 U/L (14-36); Alkaline Phosphatase 184 U/L (38-126); Blood Urea Nitrogen 20 mg/dl (7-17); Calcium 8.4 mg/dl (8.4-10.2); Carbon Dioxide 26 mmol/L (22-30); Chloride 107 mmol/L (98-107); Estimated Creatinine Clearance 41 ml/min; Glucose 85 mg/dl (70-99); Sodium 140 mmol/L (135-145); Total Bilirubin 0.8 mg/dl (0.2-1.3); Total Protein 6.6 g/dl (6.3-8.2); eGFR > 60.00
[2025-02-02 15:42] VITALS: BP 145/67
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
== END 2025-02-02 17:35 ==
LOC: 4 WEST ACU 23:27
PROVIDERS: Physician Assistant; ADMITTING PHYSICIAN Internal Medicine; ATTENDING PHYSICIAN Family Medicine; CONSULT PHYSICIAN Internal Medicine Hospice and Palliative Medicine; CONSULT PHYSICIAN Psychiatry & Neurology Psychiatry; EMERGENCY PHYSICIAN Emergency Medicine; FAMILY PHYSICIAN Family Medicine
DX: K57.32 Diverticulitis of large intestine without perforation or abscess without bleeding (principal); R53.1 Weakness; F10.10 Alcohol abuse, uncomplicated; E83.51 Hypocalcemia; I11.9 Hypertensive heart disease without heart failure; E78.00 Pure hypercholesterolemia, unspecified; R15.9 Full incontinence of feces; R32 Unspecified urinary incontinence; F41.1 Generalized anxiety disorder; K52.9 Noninfective gastroenteritis and colitis, unspecified; F34.1 Dysthymic disorder; K21.9 Gastro-esophageal reflux disease without esophagitis; F33.2 Major depressive disorder, recurrent severe without psychotic features; R62.7 Adult failure to thrive; E03.9 Hypothyroidism, unspecified; F51.04 Psychophysiologic insomnia; R63.0 Anorexia; M79.7 Fibromyalgia; N39.0 Urinary tract infection, site not specified; B96.20 Unspecified Escherichia coli [E. coli] as the cause of diseases classified elsewhere; D61.818 Other pancytopenia; R06.2 Wheezing; R16.1 Splenomegaly, not elsewhere classified; Z60.2 Problems related to living alone; Z96.643 Presence of artificial hip joint, bilateral; Z98.1 Arthrodesis status; Z96.611 Presence of right artificial shoulder joint; Z85.820 Personal history of malignant melanoma of skin; Z87.01 Personal history of pneumonia (recurrent); Z87.891 Personal history of nicotine dependence; Z82.49 Family history of ischemic heart disease and other diseases of the circulatory system; Z80.0 Family history of malignant neoplasm of digestive organs; Z88.0 Allergy status to penicillin; Z88.1 Allergy status to other antibiotic agents; Z87.440 Personal history of urinary (tract) infections; Z66 Do not resuscitate; Z85.44 Personal history of malignant neoplasm of other female genital organs; Z86.19 Personal history of other infectious and parasitic diseases; Z11.52 Encounter for screening for COVID-19; Z75.1 Person awaiting admission to adequate facility elsewhere; Z62.810 Personal history of physical and sexual abuse in childhood; Z63.79 Other stressful life events affecting family and household
CPT/HCPCS: 71046; 74177; 74230; 80053; 80306; 81003; 81015; 82077; 82550; 83690; 83735; 84443; 85025; 87045; 87046; 87077; 87086; 87186; 87324; 87427; 87449; 87502; 87811; 92610; 92611; 93005; 96360; 97163; 97166; 97530; 97535; 99284; G0378; Q9967

== ENCOUNTER 2025-06-21 08:20 | Inpatient (IN) | payer MEDICARE, SELFPAY ==
[2025-06-15] VITALS (7 sets, daily range): BP systolic 107–150; BP diastolic 67–108; BMI 28.8
--- NOTE | 2025-06-15 11:02 | ED.GENMED ---
History of Present Illness
General
Chief Complaint: Abdominal Symptoms
Source: patient
Exam Limitations: none
Time Seen by Provider: 06/15/25 10:42
History of Present Illness
History of Present Illness:
Patient here primarily for general weakness. Long history of incontinence. Both stool and urine. She has had some increased stool incontinence recently general weakness. Fatigue. Decreased p.o. intake. No abdominal pain no fever no other
complaints. She has a history of C. difficile colitis. Was on relatively recent antibiotics.
Past History
Past History
ED Past Medical History: GERD, HTN, Hypercholesterolemia, Hypothyroidism, Psychiatric (Depression) and Other (C. difficile with colitis, , alcohol abuse, PNA, IBS); Negative IDDM, NIDDM or PA
ED Past Surgical History: Orthopedic
Social History
Tobacco: Former smoker
Alcohol: Chronic alcoholic
Drug: None
Personal:
Living: senior living ([facility])
Employment: Retired
Family History
Family History: Hypertension, Early CAD, CAD and Cancer (Colon cancer)
Review of Systems
Review of Systems
All Other Systems: Not applicable
Respiratory: Reports no symptoms
Cardiac: Reports no symptoms
ABD/GI: Denies abdominal pain, vomiting or black stools
Phy Exam
Physical Exam
Physical Exam:
GENERAL: Alert and oriented in no apparent distress
EYE: Orbits normal.
NECK: Supple
CARDIAC: Regular rate and rhythm without any obvious murmurs.
LUNGS: Clear breath sounds,normal
ABDOMEN: Soft, without focal tenderness or distention
NEUROLOGICAL: Alert and oriented , grossly non-focal
SKIN: Warm and dry, no rash or lesion, no discoloration, skin intact.
MUSCULOSKELETAL: No edema,no deformity.Good color
PSYCH: Normal and appropriate interaction.
Course
Orders/Labs/Results
Orders:
Orders
06/15/25 10:58
IV Insert/Care/Rem.- Treatment PRN
0.9% Sodium Chloride 500 ml [Nss] 500 ml IV BOLUS
06/15/25 10:59
CR Obstruct Series W/pa Chest Urgent
Comment:
Reason For Exam: Current incontinence/diarrhea
06/15/25 11:08
Complete Blood Count/With Diff Urgent
Comprehensive Metabolic Panel Urgent
Lipase Urgent
06/15/25 13:36
STOOL [C difficile Antigen & Toxins] Urgent
MOHINI Source: Feces/Stool
Specimen Description:
Date Specimen was Collected: 06/15/25
Time Specimen was Collected: 13:34
Stool Culture Urgent
MOHINI Source: Feces/Stool
Specimen Description:
Date Specimen was Collected: 06/15/25
Time Specimen was Collected: 13:34
06/15/25 14:24
Potassium Chloride 10% Elixir [KCl Elixir] 40 meq PO NOW STA
US Abdomen Complete/Upper Urgent
Comment:
Reason For Exam: Diarrhea/elevated LFTs
06/15/25 Dinner
BRAT
At Your Request: Full Participation
06/15/25 17:07
Admit/Transfer Patient As Directed
Co-Sign Provider:
Level of Care: Observation services
Assign to:: Medical/Surgical
Physician / Group: Hospitalist
Diagnosis: Diarrhea
06/15/25 17:08
Code Status As Directed
Resuscitation Status: Full Code
PRN Pain Medication Management As Directed
May give lesser potent ordered pain med per pt: Yes
preference::
Protocol:: Medication orders for pain may be administered in a
manner that supports deferring to patient preference
when the pt is:
- Requesting an ordered lesser potent pain medication.
Least to most potent pain medications are defined
as: acetaminophen < NSAID < tramadol < opioids
(morphine, oxycodone, hydromorphone).
- Requesting a lesser dose of the same medication IF
ORDERED.
- Requesting a less intrusive route of administration
if both routes are prescribed by the provider (PO <
IV).
06/15/25 18:09
0.9% Sodium Chloride 1000 ml [Nss] 1,000 ml IV 80 mls/hr
Enoxaparin Sodium [Lovenox] 40 mg SC QPM
Potassium Chloride [KCl] 40 meq 0.9% Sodium Chloride 250 ml [Nss] 250 ml IV NOW
uyavfie-vohgqcyjvirno-nthxxpve [Excedrin Extra Strength] See Dose Instructions PO DAILYPRN PRN
06/15/25 18:09
Norovirus by PCR Routine
MOHINI Source: Feces/Stool
Specimen Description:
Activity As Directed
Activity Level: Ambulate
Vital Signs As Directed
Frequency: Per unit guidelines
Pt Eval And Treat Routine
Activity Level: As Tolerated
DX Deep Vein Thrombosis Video Routine
06/15/25 18:15
Cholestyramine [Questran] 4 gram PO QPM
06/15/25 20:00
Thiamine HCl [Vitamin B1] 100 mg PO BID
06/15/25 22:00
Melatonin 10 mg PO HS
Trazodone [Desyrel] 50 mg PO HS
06/16/25 06:00
Basic Metabolic Panel IN AM
Complete Blood Count/With Diff IN AM
Magnesium IN AM
06/16/25 08:00
Duloxetine Delayed Release [Cymbalta Delayed Release] 30 mg PO DAILY
FOLic ACID [Folvite] 1 mg PO DAILY
Abnormal Lab Results
06/15/25
11:08
RBC 3.92 L 10^6/uL
(4.20-5.40)
Hct 34.6 L %
(37.0-47.0)
MCH 31.6 H pg
(27.0-31.0)
Absolute Lymphs (auto) 0.9 L 10^3/uL
(1.2-3.4)
Neutrophils % 76.1 H %
(42.2-75.2)
Lymphocytes % 14.3 L %
(20.5-51.1)
Sodium 133 L mmol/L
(135-145)
Potassium 3.2 L mmol/L
(3.5-5.1)
Chloride 95 L mmol/L
(98-107)
Glucose 129 H mg/dl
(70-99)
Total Bilirubin 1.6 H mg/dl
(0.2-1.3)
AST 89 H U/L
(14-36)
ALT 109 H U/L
(0-35)
Alkaline Phosphatase 178 H U/L
(38-126)
06/15/25 11:08
06/15/25 11:08
Vital Signs
Initial and Last Documented VS:
Initial Vital Signs
Temp Pulse Resp BP Pulse Ox
97.8 F 105 20 128/84 98
06/15/25 10:23 06/15/25 10:23 06/15/25 10:23 06/15/25 10:23 06/15/25 10:23
Last Documented Vital Signs
Temp Pulse Resp BP Pulse Ox
98.3 F 90 16 115/60 100
06/16/25 07:14 06/16/25 07:14 06/16/25 07:14 06/16/25 07:14 06/16/25 07:14
MDM/Problems Addressed
Differential Diagnosis Includes:
Patient somewhat describing diarrhea on top of her chronic incontinence. Check stool for C. difficile and stool culture. Check electrolytes. Fluids. Check potassium. Workup in progress. Very nonacute abdomen. Will get a obstruction series but
feel CT scan or ultrasound would not add to the workup.
*Pulse Oximetry
SaO2: 98
Oxygen Mode of Delivery: Room air
Patient hypoxic: no
*Critical Care Note
Total Time (30-74mins, 75-104mins- exclusive of procedures): Not Applicable
ED Attending Note
-
Portions of this chart may have been created with voice recognition software.� Occasional wrong word or��sound alike� substitutions may have occurred due to the inherent limitations of voice recognition software.
Discharge Plan
Departure
Patient Disposition: Admit
Date of Disposition: 06/15/25
Time of Disposition: 15:52
Presentation/result/management discussed w/ accepting MD/DO: Hospitalist
Discharge Problem:
General weakness, Hypokalemia, Recurrent diarrhea
Interventions
Interventions:
*Risk Screen - Suicide Last Done: 06/15/25 20:32
*General Assessment Last Done: 06/15/25 10:23
*Neglect/Abuse Screening Last Done: 06/15/25 10:23
*ED- Fall Risk Assessment Last Done: 06/15/25 11:11
*ED COVID-19 Vaccine History Last Done: 06/15/25 20:32
*Nursing Disposition Last Done: 06/15/25 18:09
[place]-Hnwmjt-Rfyllhotgt Assessment Last Done: 06/15/25 11:28
Discharge Date and Time
Discharge Date/Time: 06/15/25 18:09
[2025-06-15] MEDS: NSS 500 IV (11:16)
[2025-06-15 11:26] LABS: Hematocrit 34.6 % (37.0-47.0); Hemoglobin 12.4 g/dL (12.0-16.0); Mean Corp Hgb Conc. 35.8 g/dL (33.0-37.0); Mean Corpuscular Volume 88.3 fL (81.0-99.0); Nucleated Red Blood Cells % 0 %; Platelet Count 235 10^3/uL (130-400); Red Cell Dist. Width 12.8 % (11.5-14.5)
--- NOTE | 2025-06-15 11:29 | EDRN ---
Upon arrival to treatment area- depend saturated with liquid stool- nothing collectable for stool samples
[2025-06-15 11:38] LABS: ALT (SGPT) 109 U/L (0-35); AST (SGOT) 89 U/L (14-36); Albumin 4.5 g/dl (3.5-5.0); Alkaline Phosphatase 178 U/L (38-126); Blood Urea Nitrogen 14 mg/dl (7-17); Calcium 8.9 mg/dl (8.4-10.2); Carbon Dioxide 28 mmol/L (22-30); Chloride 95 mmol/L (98-107); Estimated Creatinine Clearance 45 ml/min; Glucose 129 mg/dl (70-99); Lipase 170 U/L (23-300); Potassium 3.2 mmol/L (3.5-5.1); Sodium 133 mmol/L (135-145); Total Protein 7.7 g/dl (6.3-8.2); eGFR > 60.00
[2025-06-15] MEDS: KCL ELIXIR 40 MEQ PO (14:35)
--- NOTE | 2025-06-15 16:43 | HPS.HSE ---
Addendum entered and electronically signed by Isac Michael MD 06/15/25 19:19:
This is an addendum to H&P written by Cornelius on 06/15/2025. �Patient seen and examined independently with resident.
85-year-old female past medical history of chronic diarrhea, C. difficile colitis x 2, history of fecal transplant x 2, chronic urinary incontinence, anxiety/depression, alcohol use, chronic insomnia, hypothyroidism, vitamin D deficiency, left
bundle branch block, presenting with generalized weakness and diarrhea. �Patient has chronic diarrhea but diarrhea now is pure liquid for 2 weeks no blood. �Vomiting last week.
Last drink 2 weeks ago.
Vital signs show tachycardia.
Labs show mild hypokalemia 3.2, mild transaminitis. �C. difficile negative. �Stool studies pending. �Norovirus pending.
Abdominal ultrasound shows hepatic steatosis. �No evidence of bile duct dilatation. �Chest/abdominal x-ray shows no evidence of acute pathology.
Patient with worsening of chronic diarrhea suspect this could be viral gastroenteritis superimposed on chronic diarrhea. �Await stool studies. �Hold off antibiotics. �IV fluids. �Brat diet.
Original Note:
Family Physician
-
Family Physician: INTERVIEWE UNKNOWN - PT NOT
Chief Complaint
-
Diarrhea
History of Present Illness
This is an 85-year-old female with past medical history of alcohol use disorder, chronic diarrhea, C. difficile s/p fecal transplant x 2, GERD, LBBB, SVT, hypertension, hyperlipidemia, overactive bladder, history of persistent depressive disorder,
anxiety, chronic insomnia, who presents from [facility] complaining of generalized weakness and diarrhea episode.�The patient reports she has a history of chronic diarrhea incontinence and urinary incontinence. She follows GI at [facility] in [place]. She reports this diarrhea episode is different because it has been liquid compared to a mixture of liquid and solid in the past. She denies blood in her stool. She also reports 1 episode of vomiting last weekend and
nausea. She denies new medication use, no travel, no sick contacts. At bedside today, she denies nausea. She denied fever, chills. In addition, patient admits to generalized weakness which patient states is chronic for her. She reports since
episodes of fecal transplant, she's been experiencing generalized weakness. She denies suicidal ideation, homicidal ideation. Patient with a history of alcohol use disorder. She reports her last drink was 2 weeks ago she states she drinks 2 to 3
glasses of wine per week On presentation to the ED, vitals with BP 128/84, pulse 105, temperature 97.8, respiratory rate 20, O2 sat 98% on room air. CBC unremarkable, CMP with sodium 133, potassium 3.2, chloride 95, T. bili 1.6, AST 89, ALT 109,
ALP 178, lipase 170.
Medical History
Past Medical History
Past Medical History: Reports Other
Additional Past Medical History:
General osteoarthritis, depression, hyperlipidemia, hypertension, hypothyroidism, degenerative disc disease, diverticulosis, bipolar disorder, alcohol use disorder, infectious colitis, overactive bladder, stress incontinence, fecal incontinence,
SVT, C. difficile s/p fecal transplant
Past Surgical History: Reports Other (Spinal fusion L2-S1, hip replacement bilaterally, removal of melanoma left shoulder, removal of squamous cell cancer labia)
Social History
Tobacco: Non-smoker
Alcohol: Occasional
Drug: None
Living: Alone
Family History
Family History: Not pertinent
Allergies / Home Medications
Allergies reflects when Allergies were last updated in [facility].
Home Medications with original date entered in [facility]
Allergy/Medication List:
Allergies
Allergy/AdvReac Type Severity Reaction Status Date / Time
amoxicillin (Amoxicillin) Allergy Mild Vomiting Verified 06/15/25 10:25
clindamycin Allergy C-Diff Verified 06/15/25 10:25
nitrofurantoin (From AdvReac severe Verified 06/15/25 10:25
Macrobid) vomiting
Home Medications
nnjaamj-xgqdhxkapjgpv-gfvsyjmw 250 mg-250 mg-65 mg tablet (Excedrin Extra Strength) 1 tab PO DAILYPRN PRN sinus headache 07/21/22
cholestyramine 4 gram oral powder for suspension in a packet 4 g PO QPM High Cholesterol 01/26/25
melatonin 10 mg tablet 10 mg PO HS Sleep 01/26/25
duloxetine 30 mg capsule,delayed release 30 mg PO DAILY Depression 30 days #30 caps 02/02/25
folic acid 1 mg tablet 1 mg PO DAILY 30 days #30 tabs 02/02/25
thiamine mononitrate (vit B1) 100 mg tablet 100 mg PO BID Vitamin 30 days #60 tabs 02/02/25
trazodone 50 mg tablet 50 mg PO HS Sleep 06/15/25
Review of Systems
-
A 12 point ROS was completed and negative except as noted: Yes
Constitutional: Reports Other (All review of systems obtained and negative except as documented)
Physical Exam
Vital Signs
Vital Signs
Temp Pulse Resp BP Pulse Ox
97.8 F 105 20 124/108 98
06/15/25 10:23 06/15/25 10:23 06/15/25 10:23 06/15/25 14:00 06/15/25 11:03
Physical Exam
General: Well Developed and No Apparent Distress
HEENT: NormoCephalic
Respiratory: Clear
Cardiac: S1/S2 and Regular Rhythm
GI: Soft, Non Tender, Non Distended and Normal Bowel Sounds
Musculoskeletal: No Edema
Skin: Warm
Neuro: Awake, Alert, Oriented and AO x 3
Psych: Depressed
Laboratory Results
-
06/15/25 11:08
06/15/25 11:08
Laboratory Results
Total Bilirubin 1.6 mg/dl (0.2-1.3) H 06/15/25 11:08
AST 89 U/L (14-36) H 06/15/25 11:08
ALT 109 U/L (0-35) H 06/15/25 11:08
Alkaline Phosphatase 178 U/L (38-126) H 06/15/25 11:08
Lipase 170 U/L (23-300) 06/15/25 11:08
Impression/Plan
-
Assessment/plan
#Acute on chronic diarrhea likely Viral etiology
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
-Stool cultures pending, c-difficile negative
-Check Norovirus
-IV fluids
-Contiune Cholestyramine
-If symptoms worsening, consider GI eval
#Chronic generalized weakness
-PT/OT
#Hypovolemic hyponatremia
-IV fluids
#Hypokalemia
-Replete
-Daily BMP
#Transaminitis
-Abdominal ultrasound with hepatic steatosis, no biliary dilation or cholelithiasis
-Trend LFTs
-Monitor
#Depression
-Denies suicidal ideation, Homicidal ideation
-Patient was evaluated by psych at the last admission
-Continue duloxetine
#Anxiety
-Continue Zoloft at night
#Urinary incontinence
-Chronic, follows Dr. Tucker
-per patient, plans for vaginal pessary in the coming week
#History of alcohol use
-Reports last drink was 2 weeks ago
-Monitor
CODE STATUS: FULL CODE
DVT PPX: Lovenox
[2025-06-15] MEDS: KCL 270 MEQ IV (18:43)
[2025-06-15] MEDS: NSS 1000 IV (18:44)
[2025-06-15] MEDS: LOVENOX 40 MG SC (18:51)
[2025-06-15] MEDS: QUESTRAN 4 GRAM PO (18:51)
[2025-06-15] MEDS: VITAMIN B1 100 MG PO (20:15)
[2025-06-15] MEDS: DESYREL 50 MG PO (21:57)
[2025-06-15] MEDS: MELATONIN 10 MG PO (21:57)
[2025-06-16] MEDS: NSS 1000 IV ×2 (05:24→19:53)
[2025-06-16 07:14] VITALS: BP 115/60
[2025-06-16 09:23] LABS: Hematocrit 32.1 % (37.0-47.0); Hemoglobin 11.0 g/dL (12.0-16.0); Mean Corp Hgb Conc. 34.3 g/dL (33.0-37.0); Mean Corpuscular Volume 91.5 fL (81.0-99.0); Nucleated Red Blood Cells % 0 %; Platelet Count 156 10^3/uL (130-400); Red Cell Dist. Width 13.0 % (11.5-14.5)
[2025-06-16 09:26] LABS: Blood Urea Nitrogen 10 mg/dl (7-17); Calcium 8.6 mg/dl (8.4-10.2); Carbon Dioxide 26 mmol/L (22-30); Chloride 107 mmol/L (98-107); Estimated Creatinine Clearance 45 ml/min; Glucose 127 mg/dl (70-99); Magnesium 2.4 mg/dl (1.6-2.3); Potassium 3.4 mmol/L (3.5-5.1); Sodium 137 mmol/L (135-145); eGFR > 60.00
[2025-06-16] MEDS: CYMBALTA DELAYED RELEASE 30 MG PO (09:48)
[2025-06-16] MEDS: VITAMIN B1 100 MG PO ×2 (09:48→19:51)
[2025-06-16] MEDS: FOLVITE 1 MG PO (09:48)
[2025-06-16 11:07] VITALS: BP 109/57; PULSE 100; O2SAT 100
--- NOTE | 2025-06-16 13:17 | W.PN.HOSP.TC ---
Today's Communication/Plan
-
f/u stool cs report
reg diet
pt/ot
possible d/c tomorrow
Assessment / Plan
Assessment / Plan
1. Acute on chronic diarrhea
- Patient has been dealing with chronic diarrhea for some time and had extensive workup in the past per patient
- Patient with history of C. difficile and rechecked and has been negative
- Stool culture is pending
- Possible flareup of chronic diarrhea from any viral illness
- Maintain on home dose of cholestyramine
- Will start on Imodium as needed if infectious workup remains negative.
- Start on regular diet
2. Hypokalemia
- Replace as needed
3. History of C. difficile colitis
- Patient have undergone 2 fecal transplant, last one 8 years back at [place]
- C. difficile antigen/toxin negative this visit
4. Generalized weakness
- PT OT evaluation
5. Depression/anxiety
- Continue nighttime trazodone
DVT prophylaxis -Lovenox
Full code
Total time spent : 53 mins
Anticipated Discharge: Within 24 hours
Subjective/Interval History
-
Date of Service: June 16, 2025
Patient subjectively feeling better
No nausea or vomiting/abdominal
Objective Data
-
Labs:
Laboratory Results
06/16/25
08:28
WBC 3.3 L
Hgb 11.0 L
Hct 32.1 L
Plt Count 156 D
Sodium 137
Potassium 3.4 L
Chloride 107
Carbon Dioxide 26
BUN 10
Creatinine 0.7
Glucose 127 H
Calcium 8.6
Vital Signs:
Vital Signs
Temp Pulse Resp BP Pulse Ox
98.3 F 90 16 115/60 100
06/16/25 07:14 06/16/25 07:14 06/16/25 07:14 06/16/25 07:14 06/16/25 07:14
I&O
06/15/25 06/16/25 06/17/25
06:59 06:59 06:59
Intake Total 1070 / 1070
Balance 1070 / 1070
Review of Systems
-
Respiratory: Reports No Symptoms
Cardiac: Reports No Symptoms
Abdomen/GI: Reports No Symptoms
Physical Exam
-
General: Negative Obese
HEENT: Negative Oxygen
GI: Soft, Nontender, Nondistended and Normal Bowel Sounds
Neuro: Awake, Alert, Oriented and No Motor Deficits
--- NOTE | 2025-06-16 15:55 | CM ---
Addendum entered by Kendall Lamb 06/16/25 16:10:
CAR signed.
Original Note:
Initial assessment completed with patient who lives alone in a 1st floor apartment with no steps to enter. CONSOLIDATOR patient was independent in ADL's and ambulation with use of a SPC or RW when outside the home. Bathroom and kitchen are handicap
accessible. No in-home services. Has used and [facility] in the past. Does not drive. Uses [facility] transport for medical appointments. Has a son in [place] and a daughter in [place]. Does have HC-POA. No VA benefits. One psychiatric
hospitalization approximately 50 years ago. At that time was told she was manic depressive. Has not had psychiatric treatment in years. PCP is Dr. Fox Kelsey. Pharmacy is [facility]. Discharge POC: for RN, PT/OT. [facility] Referral
forwarded.
[2025-06-16 16:00] VITALS: BP 121/63
[2025-06-16] MEDS: LOVENOX 40 MG SC (18:36)
[2025-06-16] MEDS: QUESTRAN PO ×2 (18:37→18:39)
[2025-06-16] MEDS: DESYREL 50 MG PO (21:26)
[2025-06-16] MEDS: MELATONIN 10 MG PO (21:26)
[2025-06-16 23:50] VITALS: BP 177/92
[2025-06-17 07:30] VITALS: BP 148/80
[2025-06-17] MEDS: VITAMIN B1 100 MG PO ×2 (08:36→21:11)
[2025-06-17] MEDS: CYMBALTA DELAYED RELEASE 30 MG PO (08:36)
[2025-06-17] MEDS: FOLVITE 1 MG PO (08:36)
[2025-06-17] MEDS: QUESTRAN 4 GRAM PO ×2 (10:42→17:20)
[2025-06-17 11:23] VITALS: BP 128/69
[2025-06-17 14:19] LABS: Blood Urea Nitrogen 9 mg/dl (7-17); Calcium 8.5 mg/dl (8.4-10.2); Carbon Dioxide 27 mmol/L (22-30); Chloride 106 mmol/L (98-107); Estimated Creatinine Clearance 53 ml/min; Glucose 104 mg/dl (70-99); Potassium 3.0 mmol/L (3.5-5.1); Sodium 135 mmol/L (135-145); eGFR > 60.00
--- NOTE | 2025-06-17 15:17 | W.PN.HOSP.TC ---
Today's Communication/Plan
-
symptomatic control of diarrhea
infectious workup neg so far
Assessment / Plan
Assessment / Plan
1. Acute on chronic diarrhea
- Patient has been dealing with chronic diarrhea for some time and had extensive workup in the past per patient
- Patient with history of C. difficile and rechecked and has been negative
- Stool culture negative till date.
- Noro virus negative
- Possible flareup of chronic diarrhea from any viral illness
- Maintain on home dose of cholestyramine. adding morning dose as well but possibly nothing to suggest that this is biliary diarrhea
- will give lomotil at night to try control symtpoms
- Start on regular diet
2. Hypokalemia
- Replace as needed
3. History of C. difficile colitis
- Patient have undergone 2 fecal transplant, last one 8 years back at [facility]
- C. difficile antigen/toxin negative this visit
4. Generalized weakness
- PT OT evaluation
5. Depression/anxiety
- Continue nighttime trazodone
6. Hypokalemia
- replaced
DVT prophylaxis -Lovenox
Full code
Anticipated Discharge: Within 24 hours
Subjective/Interval History
-
Date of Service: June 17, 2025
still have some diarrhea
no abd pain/fever
Objective Data
-
Labs:
Laboratory Results
06/17/25
13:38
Sodium 135
Potassium 3.0 L
Chloride 106
Carbon Dioxide 27
BUN 9
Creatinine 0.6
Glucose 104 H
Calcium 8.5
Vital Signs:
Vital Signs
Temp Pulse Resp BP Pulse Ox
98.7 F 99 18 128/69 97
06/17/25 11:23 06/17/25 11:23 06/17/25 11:23 06/17/25 11:23 06/17/25 11:23
I&O
06/16/25 06/17/25 06/18/25
06:59 06:59 06:59
Intake Total 1069 / 1069
Balance 1069
Review of Systems
-
Respiratory: Reports No Symptoms
Cardiac: Reports No Symptoms
Abdomen/GI: Reports Diarrhea; Denies Abdominal Pain, Nausea or Vomiting
Physical Exam
-
General: Negative Obese
HEENT: Negative Oxygen
GI: Soft, Nontender, Nondistended and Normal Bowel Sounds
Neuro: Awake, Alert, Oriented and No Motor Deficits
[2025-06-17 15:39] VITALS: BP 138/72
[2025-06-17] MEDS: KCL 40 MEQ PO (16:19)
[2025-06-17] MEDS: LOVENOX 40 MG SC (17:17)
[2025-06-17] MEDS: ZOFRAN 4 MG IV (17:43)
[2025-06-17 19:47] VITALS: BP 139/76
[2025-06-17] MEDS: DESENEX/MITRAZOL/ZEASORB 1 APPLIC TOPICAL (21:10)
[2025-06-17] MEDS: LOMOTIL 1 TABLET PO (21:11)
[2025-06-17] MEDS: DESYREL 50 MG PO (21:11)
[2025-06-17] MEDS: MELATONIN 10 MG PO (21:11)
[2025-06-17 23:24] VITALS: BP 130/70
[2025-06-18 07:05] VITALS: BP 102/44
[2025-06-18] MEDS: CYMBALTA DELAYED RELEASE 30 MG PO (09:23)
[2025-06-18] MEDS: VITAMIN B1 100 MG PO ×2 (09:23→21:00)
[2025-06-18] MEDS: DESENEX/MITRAZOL/ZEASORB 1 APPLIC TOPICAL ×2 (09:24→21:01)
[2025-06-18] MEDS: FOLVITE 1 MG PO (09:24)
[2025-06-18] MEDS: QUESTRAN 4 GRAM PO ×2 (09:24→15:53)
--- NOTE | 2025-06-18 10:20 | CON.GI ---
Addendum entered and electronically signed by JESUSITA Gross 06/19/25 09:40:
reviewed with nursing staff unable to get 24 hours urine with incontinence will try to add random [id number].
Addendum entered and electronically signed by Papo Lambert MD 06/18/25 14:10:
I saw and examined the patient.
The COLLAR TURNER OPERATOR or PA's note was reviewed and I agree with the note.
Comment: 85yo female with hx chronic diarrhea ever since she developed C diff after a course of clinda yrs ago. Has seen Dr Castillo at [facility] and Dr Eckert at [facility]. Treated for c diff in the past, had FMT x 2 without improvement. Tried
probiotics, prebiotics, xifaxan. Last couple years has been using questran which helped initially but less recently. Now comes in with worsened diarrhea, constantly leaking liquid stool into her protective undergarment, which she wears daily for
years. Had diverticulitis couple mo ago. Has some LLQ pain. Attempted bx at [facility] was incomplete last year. Had colonoscopy with Dr Castillo several years ago. Has hx vulvar cancer
REC:
Cont questran BID
Add probiotics
Check VIP, calcitonin, urine 5HIAA, gastrin, though she has had extensive work up in the past and may have already been checked
CT AP
Consider PERT for low fecal elastase- she doesn't think she has been on this before
Could also be component of FI and may benefit from anal manometry/PPT/defecography
Utlimately, would recommend outpt GI follow up with her known GI (Anna or Babar) for management of the chronic diarrhea. Probably needs repeat colonoscopy if last full exam not recent
Addendum entered and electronically signed by JESUSITA Gross 06/18/25 12:17:
updated pt on chart review. She declines to do CT til AM
Addendum entered and electronically signed by JESUSITA Gross 06/18/25 12:06:
per further records review from epic portal
hx low fecal elastase <50 in past
mild CRP elevated in past ? UC but bx neg in 2023
fecal fat normal
hx chronic elevated LFT's hepatitis and iron panel, celiac panel neg but DQ2 positive/Dq8 neg,
stool electrolytes 2022- na 36, K 102, cl 66, osm 339, stool osmotic gap 116
also hx IBS, heart murmur
after CT reviewed may need to consider Barium enema and CR consult
Original Note:
Consultation
-
Date/Time Consultation Requested: 06/18/25 1000
Date/Time Consultation Performed: 06/18/25 1020
Requesting Provider: Todd Byrd MD
Performing Provider: JESUSITA Petty, Papo Lambert MD
Reason for Consultation: acute on chronic diarrhea
Medical History
Chief Complaint / HPI
Chief Complaint: fecal incontinence/diarrhea
History of Present Illness:
PT is a 85yo with hx ETOH abuse with prior ETOH hepatitis, chronic diarrhea with prior c-diff requiring fecal transplant and prior Xifaxan use, vulva cancer with resection no radiation, diverticulitis, prior colitis, HTN, hyperlipidemia,
hypothyroidism, bipolar disorder,prior joint replacements with chronic stool and urine incontinence with increased stool volume and weakness. In review with patient she has had incontinence of stool and urine for several years since she had c-diff.
She will change her diaper about 5 times per day but now needed 10 + prior to admission. She has tried Lomotil and Imodium without improvement but now on Cholestyramine 4grams daily. Since admission she is noted with neg norovirus, c-diff and
stool culture. She is also noted with hypokalemia and low grade fever. Ct in January with diverticulitis.
Pt otherwise admits to some LLQ pain only with palpation. She has had some wt loss over time. She denies dysphagia, GERD, nausea, vomiting, blood or black in stools. EGD with Dr. Smith 2010 regular Z line, GERD, normal stomach and duodenum.
bx chronic gastris and chronic esophagitis. She also had flex in 2023 at [place] for chronic diarrhea, tortuous sigmoid not advanced, no microscopic colitis, mild non specific chronic inflammation. Pt did not recall any anorectal manometry in
past.
Past Medical History
Past Medical History: Arrhythmias (SVT), Cancer (skin and vulva cancer ), GERD, HTN, Hypercholesterolemia, Hypothyroidism, Psychiatric (depression, bipolar ) and Other (osteoporosis, chronic low back pain, DDD, diverticulosis, diverticulitis, PNA,
recurrent c-diff with prior fecal transplant and Xifaxan, ETOH hepatitis and prior HE, colitis 2013, overactive bladder)
Past Surgical History: Orthopedic (spinal fusion, b/l hip replacements,) and Other ( shoulder melanoma, squamous cell labia)
Social History
Tobacco: Non-Smoker
Alcohol: Occasional (prior heavy ETOH now 4 glasses wine per week )
Drug: None
Living: Alone
Employment: Retired
Family History
Family History: Other (mother and grandfathers with colon CA)
Allergies / Home Medications
Allergy/AdvReac Type Severity Reaction Status Date / Time
adhesive tape Allergy Mild Rash Verified 06/16/25 00:26
amoxicillin (Amoxicillin) Allergy Vomiting Verified 06/15/25 18:11
clindamycin Allergy C-Diff Verified 06/15/25 10:25
nitrofurantoin (From AdvReac severe Verified 06/15/25 10:25
Macrobid) vomiting
�Medication �Instructions �Recorded
[id number]-[id number]-ghdznfhd 250 1 tab PO DAILYPRN PRN sinus 07/21/22
mg-250 mg-65 mg tablet (Excedrin headache
Extra Strength)
cholestyramine 4 gram oral powder 4 g PO QPM High Cholesterol 01/26/25
for suspension in a packet
melatonin 10 mg tablet 10 mg PO HS Sleep 01/26/25
duloxetine 30 mg capsule,delayed 30 mg PO DAILY Depression 30 days 02/02/25
release #30 caps
folic acid 1 mg tablet 1 mg PO DAILY 30 days #30 tabs 02/02/25
thiamine mononitrate (vit B1) 100 100 mg PO BID Vitamin 30 days #60 04/11/25
mg tablet tabs
trazodone 50 mg tablet 50 mg PO HS Sleep 06/15/25
Review of Systems
-
History Source: Patient
Constitutional: Reports Weight Loss and Fatigue
EENT: Reports No Symptoms
Respiratory: Reports No Symptoms
Cardiac: Reports No Symptoms
Abdomen/GI: Reports Abdominal Pain (LLQ with palpation ), Diarrhea and Other (stool incontinence )
: Reports Incontinence
Musculoskeletal: Reports No Symptoms
Skin: Reports No Symptoms
Neurological: Reports Weakness
Endocrine: Reports No Symptoms
Hematologic/Lymphatic: Reports No Symptoms
Vital Signs
Temp Pulse Resp BP Pulse Ox
99.9 F 97 20 102/44 97
06/18/25 07:05 06/18/25 07:05 06/18/25 07:05 06/18/25 07:05 06/18/25 07:05
Physical Exam
Exam
General: Well Developed, Well Nourished and No Apparent Distress
HEENT: Normocephalic
Respiratory: Clear
Cardiac: Regular Rhythm and Murmur
GI: Soft, Non Distended and Tender (LLQ )
Rectal: Brown, Hem Negative and Other (moderate amount of loose brown stool no impaction, decreased sphincter tone, increased stool with cough)
Musculoskeletal: No Clubbing and No Cyanosis
Skin: Warm and Dry
Neuro: Awake, Alert and AO x 3
Psych: Calm
Results
WBC 3.3 10^3/uL (4.8-10.8) L 06/16/25 08:28
Hgb 11.0 g/dL (12.0-16.0) L 06/16/25 08:28
Hct 32.1 % (37.0-47.0) L 06/16/25 08:28
MCV 91.5 fL (81.0-99.0) 06/16/25 08:28
Plt Count 156 10^3/uL (130-400) D 06/16/25 08:28
Absolute Neuts (auto) 2.3 10^3/uL (1.4-6.5) 06/16/25 08:28
Sodium 135 mmol/L (135-145) 06/17/25 13:38
Potassium 3.0 mmol/L (3.5-5.1) L 06/17/25 13:38
Chloride 106 mmol/L (98-107) 06/17/25 13:38
Carbon Dioxide 27 mmol/L (22-30) 06/17/25 13:38
BUN 9 mg/dl (7-17) 06/17/25 13:38
Creatinine 0.6 mg/dL (0.6-1.0) 06/17/25 13:38
Calcium 8.5 mg/dl (8.4-10.2) 06/17/25 13:38
Total Bilirubin 1.6 mg/dl (0.2-1.3) H 06/15/25 11:08
AST 89 U/L (14-36) H 06/15/25 11:08
ALT 109 U/L (0-35) H 06/15/25 11:08
Alkaline Phosphatase 178 U/L (38-126) H 06/15/25 11:08
Lipase 170 U/L (23-300) 06/15/25 11:08
Diagnostic Image Results:
US Abdomen Complete/Upper
Hepatic steatosis. No evidence for cholelithiasis or bile duct dilatation.
12/21/18 CT Abd/pel W Iv Cont (trauma)
1). No evidence of acute traumatic injury.
2). There is a large amount of feces throughout the colon suggesting possible constipation.
3). Nonurgent findings include:
-Dependent atelectasis of posterior lung bases.
-Mild diffuse fatty infiltration of the liver.
-Borderline splenomegaly.
-9 mm left renal cyst.
-Atherosclerosis.
-Bilateral hip replacements.
-Mechanical and osseous interbody fusion from L2-S1.
-Diverticuli are present in the colon with no CT evidence of diverticulitis
Prior GI Procedures:
EGD: with Dr. [id number] regular Z line, GERD, normal stomach and duodenum. bx chronic gastris and chronic esophagitis.
Colonoscopy: ? 1-[address] Castillo did not recall results
flex 2015 Dr. Castillo - to transverse colon diverticulosis - cont loperamide
Flex [place] chronic diarrhea, tortuous sigmoid not advanced, no microscopic colitis non specific chronic inflammation
Assessment / Plan
-
PT is a 85yo with hx ETOH abuse with prior ETOH hepatitis, chronic diarrhea with prior c-diff requiring fecal transplant and prior Xifaxan use, vulva cancer with resection no radiation, diverticulitis, prior colitis, HTN, hyperlipidemia,
hypothyroidism, bipolar disorder,prior joint replacements with chronic stool and urine incontinence with increased stool volume and weakness. In review with patient she has had incontinence of stool and urine for several years since she had c-diff.
She will change her diaper about 5 times per day but now needed 10 + prior to admission. She has tried Lomotil and Imodium without improvement but now on Cholestyramine 4grams daily. Since admission she is noted with neg norovirus, c-diff and
stool culture. She is also noted with hypokalemia and low grade fever. Ct in January with diverticulitis. Pt otherwise admits to some LLQ pain only with palpation. She has had some wt loss over time. EGD with Dr. Smith 2009 regular Z line, GERD,
normal stomach and duodenum. bx chronic gastris and chronic esophagitis. She also had flex in 2023 at [place] for chronic diarrhea, tortuous sigmoid not advanced, no microscopic colitis, mild non specific chronic inflammation. Pt did not recall
any anorectal manometry in past. Also noted Bili 1.6, AST 89, ALT 109, alk phos 178 on admission. with fatty liver on US
-acute on chronic diarrhea
-LLQ pain
-limited flex sig in 2023 with tortuous sigmoid unable to advance scope
-hypokalemia
-chronic stool and urinary incontinence
-increased LFT's
-diverticulitis 01/[address]
- prior c-diff requiring fecal transplant and prior Xifaxan use
-wt loss
other med problems:
--ETOH abuse with prior ETOH hepatitis
-vulva cancer with resection no radiation
- prior colitis
- HTN
- hyperlipidemia
- hypothyroidism
- bipolar disorder
-prior joint replacements
-fatty liver
PLAN:
etiology of worsening stool incontinence related to diverticulitis as noted on CT 01/2025 with some LLQ pain on exam, sigmoid stricture with difficulty passing scope in 2023 vs other
stool studies neg
no impaction on exam with moderate amount of loose brown stool with increased incontinence with cough
will check CT A/P with IV and oral contrast
correct K per hospitalist team
await further Dr. Castillo records
check celiac panel, add TSH
repeat LFT's with elevation on admission s/p US completed
-
-
Thank you for consultation and allowing me to participate in the patient's care. Please call the industrial relations counselor GI physician during the after hours with any questions or concerns.
[2025-06-18 11:46] LABS: Blood Urea Nitrogen 9 mg/dl (7-17); Calcium 8.0 mg/dl (8.4-10.2); Carbon Dioxide 27 mmol/L (22-30); Chloride 107 mmol/L (98-107); Estimated Creatinine Clearance 45 ml/min; Glucose 123 mg/dl (70-99); Potassium 3.4 mmol/L (3.5-5.1); Sodium 139 mmol/L (135-145); eGFR > 60.00
--- NOTE | 2025-06-18 12:52 | CM ---
Chart reviewed and case manager specialist met with patient and reviewed physical therapy recommendation and home care for patient and options were reviewed and patient was set up with [facility]. Patient states she is not strong enough to return to home, case
guest experience manager will await updated therapy notes to follow patient progress.
Plan; Home with [facility] v's skilled placement.
[2025-06-18 13:18] LABS: ALT (SGPT) 76 U/L (0-35); AST (SGOT) 78 U/L (14-36); Albumin 3.2 g/dl (3.5-5.0); Alkaline Phosphatase 97 U/L (38-126); Total Protein 6.0 g/dl (6.3-8.2)
[2025-06-18 13:44] LABS: TSH 2.52 uIU/ml (0.47-4.68)
[2025-06-18 15:16] VITALS: BP 121/62
--- NOTE | 2025-06-18 15:27 | W.PN.HOSP.TC ---
Today's Communication/Plan
-
Workup as per GI including CT in AM
replace K
Assessment / Plan
Assessment / Plan
Assessment:
Acute on chronic diarrhea
- Patient has been dealing with chronic diarrhea for some time and had extensive workup in the past per patient
- Patient with history of C. difficile and rechecked and has been negative
- Stool culture negative till date.
- Noro virus negative
- Possible flare-up of chronic diarrhea from any viral illness vs other
- GI following; further workup sent
- continue cholestyramine BID, prn Lomotil
- probiotics added
- CT A/P tomorrow
- diet: regular
Hypokalemia
- Replace as needed
History of C. difficile colitis
- Patient have undergone 2 fecal transplant, last one 8 years back at [place]
- C. difficile antigen/toxin negative this visit
Generalized weakness
- PT/OT evals
Depression/anxiety
- Continue trazodone/Duloxetine
DVT prophylaxis: Lovenox
Code: Full
Anticipated Discharge: > 48 hours
Subjective/Interval History
-
Date of Service: June 18, 2025
reports ongoing loose stools
no significant abd pain
Objective Data
-
Labs:
Laboratory Results
06/18/25
11:07
Sodium 139
Potassium 3.4 L
Chloride 107
Carbon Dioxide 27
BUN 9
Creatinine 0.7
Glucose 123 H
Calcium 8.0 L
Total Bilirubin 0.7
AST 78 H
ALT 76 H
Alkaline Phosphatase 97
Vital Signs:
Vital Signs
Temp Pulse Resp BP Pulse Ox
98.2 F 92 20 121/62 95
06/18/25 15:16 06/18/25 15:16 06/18/25 15:16 06/18/25 15:16 06/18/25 15:16
I&O
06/17/25 06/18/25 06/19/25
06:59 06:59 06:59
Intake Total 2320 / 2320 600 / 600
Balance 2320 / 2320 600 / 600
Physical Exam
-
General: No Apparent Distress
HEENT: Normocephalic and Atraumatic
Respiratory: Negative Wheezes
Cardiac: Regular Rhythm and S1/S2
GI: Soft
Neuro: AO x 3
Psych: Calm
Data Reviewed
-
Total Time Spent with Patient (in minutes): 41
Labs: Labs Reviewed by me
[2025-06-18] MEDS: KCL 40 MEQ PO (15:53)
[2025-06-18] MEDS: LOVENOX 40 MG SC (18:20)
[2025-06-18] MEDS: FLORASTOR 250 MG PO (21:00)
[2025-06-18] MEDS: LOMOTIL 1 TABLET PO (21:00)
[2025-06-18] MEDS: MELATONIN 10 MG PO (21:00)
[2025-06-18] MEDS: DESYREL 50 MG PO (21:00)
[2025-06-18 23:15] VITALS: BP 120/69
[2025-06-19] MEDS: OMNIPAQUE 50 ML PO (06:04)
[2025-06-19 07:00] VITALS: BP 130/73
[2025-06-19 07:38] LABS: Hematocrit 31.1 % (37.0-47.0); Hemoglobin 10.4 g/dL (12.0-16.0); Mean Corp Hgb Conc. 33.4 g/dL (33.0-37.0); Mean Corpuscular Volume 93.4 fL (81.0-99.0); Platelet Count 126 10^3/uL (130-400); Red Cell Dist. Width 13.7 % (11.5-14.5)
[2025-06-19 07:40] LABS: Blood Urea Nitrogen 12 mg/dl (7-17); Calcium 8.2 mg/dl (8.4-10.2); Carbon Dioxide 28 mmol/L (22-30); Chloride 107 mmol/L (98-107); Estimated Creatinine Clearance 45 ml/min; Glucose 96 mg/dl (70-99); Potassium 4.0 mmol/L (3.5-5.1); Sodium 138 mmol/L (135-145); eGFR > 60.00
[2025-06-19] MEDS: VITAMIN B1 100 MG PO ×2 (09:18→20:50)
[2025-06-19] MEDS: QUESTRAN 4 GRAM PO ×2 (09:18→16:43)
[2025-06-19] MEDS: CYMBALTA DELAYED RELEASE 30 MG PO (09:18)
[2025-06-19] MEDS: FLORASTOR 250 MG PO ×2 (09:18→20:50)
[2025-06-19] MEDS: FOLVITE 1 MG PO (09:18)
[2025-06-19] MEDS: DESENEX/MITRAZOL/ZEASORB 1 APPLIC TOPICAL ×2 (09:19→20:49)
[2025-06-19 10:04] VITALS: BP 105/76; PULSE 94; O2SAT 98
[2025-06-19 10:07] VITALS: BP 105/76; PULSE 94; O2SAT 98
--- NOTE | 2025-06-19 10:58 | W.PN.HOSP.TC ---
Today's Communication/Plan
-
Colorectal evaluation
Assessment / Plan
Assessment / Plan
Assessment:
Acute on chronic diarrhea
- Patient has been dealing with chronic diarrhea for some time and had extensive workup in the past per patient
- Patient with history of C. difficile and rechecked and has been negative
- Stool culture negative till date.
- Noro virus negative
- Possible flare-up of chronic diarrhea from any viral illness vs other
- GI following; further workup sent
- continue cholestyramine BID, prn Lomotil
- probiotics added
- CT A/P: Moderate segment abnormal mural thickening along the proximal sigmoid colon as above. Along this segment, there is area of apparent luminal narrowing which is persistent on the delayed phase images compatible with the given history of
sigmoid stricture. There is also abnormal eccentric contrast along the posterior wall of the proximal sigmoid colon as above. Exact etiology of this is indeterminate, but longitudinal intramural fistula would be a consideration.
- Colorectal evaluation
- diet: clears
Hypokalemia
- Replace as needed
History of C. difficile colitis
- Patient have undergone 2 fecal transplant, last one 8 years back at [place]
- C. difficile antigen/toxin negative this visit
Generalized weakness
- PT/OT evals - patient desires SNF
Depression/anxiety
- Continue trazodone/Duloxetine
DVT prophylaxis: Lovenox
Code: Full
Anticipated Discharge: > 48 hours
Subjective/Interval History
-
Date of Service: June 19, 2025
resting comfortably
Objective Data
-
Labs:
Laboratory Results
06/19/25
06:33
WBC 3.7 L
Hgb 10.4 L
Hct 31.1 L
Plt Count 126 L
Sodium 138
Potassium 4.0
Chloride 107
Carbon Dioxide 28
BUN 12
Creatinine 0.7
Glucose 96
Calcium 8.2 L
Vital Signs:
Vital Signs
Temp Pulse Resp BP Pulse Ox
98.4 F 97 16 130/73 97
06/19/25 07:00 06/19/25 07:00 06/19/25 07:00 06/19/25 07:00 06/19/25 07:00
I&O
06/18/25 06/19/25 06/20/25
06:59 06:59 06:59
Intake Total 600 / 600
Balance 600 / 600
Physical Exam
-
General: No Apparent Distress
HEENT: Normocephalic and Atraumatic
Respiratory: Negative Wheezes
Cardiac: Regular Rhythm and S1/S2
GI: Soft
Neuro: AO x 3
Psych: Calm
Data Reviewed
-
Total Time Spent with Patient (in minutes): 41
Labs: Labs Reviewed by me
--- NOTE | 2025-06-19 11:33 | CM ---
program manager rn reviewed updated recommendations from PT/OT and they are recommending home for patient with home care, patient is current with [facility], plan home with [facility].
Plan; Home with [facility]
--- NOTE | 2025-06-19 12:00 | CON.CRS ---
Consultation
-
Date/Time Consultation Requested: 06/19/2025, 11:31
Date/Time Consultation Performed: 06/19/2025, 13:00
Requesting Provider: Todd Cervantes MD
Performing Provider: Samuel Craft MD
Reason for Consultation: sigmoid stenosis
Medical History
-
Chief Complaint: diarrhea
History of Present Illness:
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 difficile status post fecal transplant x 2, overactive bladder, depressive disorder, insomnia, and history of alcohol use disorder, presents from [facility] complaining of weakness and diarrhea. She has had chronic diarrhea in the past with associated incontinence. She has had chronic diarrhea with a history of C. difficile requiring fecal transplant and prior Xifaxan she also apparently
had vulvar cancer with resection (5 years ago) in the past use with no radiation. Records are not available for review (this was done at [facility]). She usually changes her diaper about 5 times a day but now it is more than 10 times a day.
She has had this issue since having C. difficile. Apparently Lomotil and Imodium do not help. She is on cholestyramine 4 g daily which helped in the past but no longer is working. She has stool cultures, C. difficile cultures, and norovirus
performed on admission which were all negative. She was here back in January 2025 due to left upper quadrant pain which showed acute uncomplicated diverticulitis of the distal descending/proximal sigmoid. She is under the care of of her GI doctor at
[facility] in [place]. Apparently her colonoscopy was several years ago by Dr. Castillo. The report is not available for review. She had a flexible sigmoidoscopy last year at [place] due to the chronic diarrhea and there was a torturous
sigmoid colon noted and was not advanced (report is in the chair). There was no microscopic colitis, and not on specific chronic inflammation. A CT of the abdomen pelvis was performed during this admission. This showed a moderate segment of
normal mural thickening along the proximal sigmoid colon
With an apparent luminal narrowing which is persistent on the delayed phase images compatible with the history of sigmoid stricture. There is also abnormal eccentric contrast on the posterior wall of the proximal sigmoid colon. Exact etiology is
indeterminate but longitudinal intramural fistula be a consideration. There is liquid stool throughout the proximal colon with no bowel obstruction. There is also splenomegaly noted on exam. Her WBC on admission was 6.5 and is 3.7 today. She has
remained afebrile. Her vitals have been normal. Denies any bleeding. Her abdominal pain is a little worse since admission. Given the CT findings, we have been consulted for further surgical opinion.
Past Medical History
Past Medical History: Other (osteoarthritis, depression, hyperlipidemia, hypertension, hypothyroidism, degenerative disc disease, diverticulosis, bipolar disorder, alcohol use disorder, infectious colitis, overactive bladder, stress incontinence,
fecal incontinence, SVT, C. difficile s/p fecal transplant)
Past Surgical History: Other (Spinal fusion L2-S1, hip replacement bilaterally, removal of melanoma left shoulder, removal of squamous cell cancer labia)
Social History
Tobacco: Non-Smoker
Alcohol: Occasional
Drug: None
Living: Alone
Family History
Family History: Reviewed & Not Pertinent
Allergies / Home Medications
Allergy/AdvReac Type Severity Reaction Status Date / Time
adhesive tape Allergy Mild Rash Verified 06/16/25 00:26
amoxicillin (Amoxicillin) Allergy Vomiting Verified 06/15/25 18:11
clindamycin Allergy C-Diff Verified 06/15/25 10:25
nitrofurantoin (From AdvReac severe Verified 06/15/25 10:25
Macrobid) vomiting
�Medication �Instructions �Recorded �Confirmed �Type
kdgqznr-ftxpkjkbebamk-zxjtgyjt 250 1 tab PO DAILYPRN PRN sinus 07/21/22 06/15/25 History
mg-250 mg-65 mg tablet (Excedrin headache
Extra Strength)
cholestyramine 4 gram oral powder 4 g PO QPM High Cholesterol 01/26/25 06/15/25 History
for suspension in a packet
melatonin 10 mg tablet 10 mg PO HS Sleep 01/26/25 06/15/25 History
duloxetine 30 mg capsule,delayed 30 mg PO DAILY Depression 30 days 02/02/25 06/15/25 Rx
release #30 caps
folic acid 1 mg tablet 1 mg PO DAILY 30 days #30 tabs 02/02/25 06/15/25 Rx
thiamine mononitrate (vit B1) 100 100 mg PO BID Vitamin 30 days #60 02/02/25 06/15/25 Rx
mg tablet tabs
trazodone 50 mg tablet 50 mg PO HS Sleep 06/15/25 06/15/25 History
Review of Systems
-
History Source: Patient
Constitutional: Other (weakness)
Abdomen/GI: Nausea, Vomiting and Diarrhea
A 10 point review of systems was completed, and was negative except as per HPI.
Physical Exam
Vital Signs
Temp 98.4 F 06/19/25 07:00
Pulse 97 06/19/25 07:00
Resp Rate 16 06/19/25 07:00
Blood pressure 130/73 06/19/25 07:00
SaO2 97 06/19/25 07:00
Body Mass Index (BMI) 28.8
Lab Results / Allergies
06/19/25 06:33
06/19/25 06:33
WBC 3.7 10^3/uL (4.8-10.8) L 06/19/25 06:33
Hgb 10.4 g/dL (12.0-16.0) L 06/19/25 06:33
Hct 31.1 % (37.0-47.0) L 06/19/25 06:33
Plt Count 126 10^3/uL (130-400) L 06/19/25 06:33
Abs Immat Gran (auto) 0.0 10^3/uL (0-0.05) 06/16/25 08:28
Neutrophils % 68.5 % (42.2-75.2) 08/23/25 08:28
Allergy/AdvReac Type Severity Reaction Status Date / Time
adhesive tape Allergy Mild Rash Verified 06/16/25 00:26
amoxicillin (Amoxicillin) Allergy Vomiting Verified 06/15/25 18:11
clindamycin Allergy C-Diff Verified 06/15/25 10:25
nitrofurantoin (From AdvReac severe Verified 06/15/25 10:25
Macrobid) vomiting
Physical Exam
General: Well Developed, Well Nourished and No Apparent Distress
GI: Soft, Tender (LLQ > RLQ, mild to moderate) and Distended (mild)
Skin: Warm and Dry
Neuro: AO x 3
Psych: Calm
Data Reviewed
-
CT Scan: Image Personally Visualized and interpreted, Report Reviewed by me and Discussed with Patient
Labs: Labs Reviewed by me, Discussed with Physician and Discussed with Patient
Old Records: Reviewed
Assessment / Plan
-
Assessment: 85-year-old female with a longstanding history of diarrhea status post C. 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
on CT
Plan:
-Remain on clears but low threshold for NPO status if more distended/pain
-Will read over records in her chart for further clarification on her past medical history
-Will need further imaging to analyze the stricture further - i.e GE vs flex sig.
-To discuss case with Dr. Craft who will see patient later today
[2025-06-19 15:03] VITALS: BP 137/93
--- NOTE | 2025-06-19 15:23 | W.PN.GI.CBS2 ---
Today's Communication / Plan
-
see plan above
Assessment / Plan
-
85 yo F with pmhx alcohol use disorder, chronic diarrhea with prior c-diff requiring FMTx2 and prior Xifaxan use, vulvar cancer s/p resection (w/o radiation), h/o diverticulitis/colitis, HTN, hyperlipidemia, hypothyroidism, bipolar disorder, prior
joint replacements, with chronic stool and urine incontinence with increased stool volume and progressive weakness.
She has had incontinence of stool and urine for several years since she had c-diff infection. She will usually need to change her diaper 5x per day, but now worsened to >10x per day prior to admission. EGD with Dr. Smith in 2009 showed regular Z
line, GERD, normal stomach and duodenum; biopsies from that time showing chronic gastris and chronic esophagitis.
Assessment:
#Acute on Chronic Diarrhea
#Sigmoid stricture
#Tortuous Sigmoid Colon (2023, Flex Sig)
#Hypokalemia
#Chronic Stool Incontinence
#Chronic Urine Incontinence
#Transaminitis
#H/o of C. Diff infection requiring FMT x2, Xifaxan use
#Weight Loss
CT A/P with IV and oral contrast (06/18/2025):
- Moderate segment abnormal mural thickening along the proximal sigmoid colon, area of apparent luminal narrowing compatible with history of sigmoid stricture
- liquid stool throughout the proximal colon, no bowel obstruction
Stool studies:
- Norovirus (06/16) negative, Cdiff Toxin & Antigen (06/15) negative, Slmonella/Shigella, Campylobacter, Shiga toxin (06/15) negative
Plan:
Etiology of worsening stool incontinence/diarrhea most likely secondary to Sigmoid stricture with possible overflow vs. pelvic floor dysfunction vs. other
She has tried Lomotil and Imodium without improvement, now on Cholestyramine 4grams daily -- cont. Cholestyramine
CT Abd/Pelvis above confirming sigmoid stricture -- Colorectal consult for possible surgical intervention
Celiac testing -- HLA DQ2 positive, DQ8 negative
TSH wnl on 06/18
Abd US showing hepatic steatosis 06/15 -- most recent LFTs from 06/18 show down trend from admission
LLQ pain with low grade fever on admission concerning for colitis -- CT Abd/pelvis showing no evidence of colitis
Pending VIP, Calcitonin, Urine 5-HIAA, Urine Ecotherapist
Can consider anal manometry testing with outpatient GI Dr. Castillo
Subjective
Subjective
Date of Service: June 19, 2025
Pt continuing to be incontinent of stool. No other acute complaints or symptoms. No overnight events.
Objective
Data Reviewed
Laboratory Data:
Laboratory Results
06/19/25 06:33
06/19/25 06:33
Laboratory Results
Magnesium 2.4 mg/dl (1.6-2.3) H 06/16/25 08:28
Total Bilirubin 0.7 mg/dl (0.2-1.3) 06/18/25 11:07
AST 78 U/L (14-36) H 06/18/25 11:07
ALT 76 U/L (0-35) H 06/18/25 11:07
Alkaline Phosphatase 97 U/L (38-126) 06/18/25 11:07
Lipase 170 U/L (23-300) 06/15/25 11:08
Vital Signs and I&O:
Vital Signs
Temp Pulse Resp BP Pulse Ox
98.8 F 90 16 137/93 96
06/19/25 15:03 06/19/25 15:03 06/19/25 15:03 06/19/25 15:03 06/19/25 15:03
I&O
06/18/25 06/19/25 06/20/25
06:59 06:59 06:59
Intake Total 600 / 600
Balance 600 / 600
Physical Exam
Physical Exam
HEENT: Anicteric, Moist mucous membranes and No Lymphadenopathy
Cardiology: Normal Sinus Rhythm, S1 and S2
Pulmonary: Clear
GI: Soft, Distended, Non Tender and Normal Bowel Sounds
Extremities: No Edema and Warm
Neuro: Non Focal
--- NOTE | 2025-06-19 16:22 | W.PN.UPDATE ---
Update Note
Progress Note Update
reviewed with nursing staff still unable to get 5HIAA for 24 or spot urine. will hold for now.
[2025-06-19] MEDS: LOVENOX SC (18:20)
[2025-06-19] MEDS: DESYREL 50 MG PO (20:50)
[2025-06-19] MEDS: MELATONIN 10 MG PO (20:50)
[2025-06-19] MEDS: LOMOTIL 1 TABLET PO (20:53)
[2025-06-19 23:06] VITALS: BP 141/79
[2025-06-20 07:05] VITALS: BP 126/63
--- NOTE | 2025-06-20 08:13 | W.PN.CRS1 ---
Today's Communication / Plan
-
Gastrogaffin enema
Assessment/Plan
-
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
on CT
Plan:
-She is willing to undergo a Gastrogaffin enema to further analyze her sigmoid stricture
-NPO for GE, then okay to advance to fulls after
-Will read over records in her chart for further clarification on her past medical history
Subjective Data
Subjective Data
Date of Service: June 20, 2025
Patient states she is the same. She is still having loose stools. She is willing to have her treatment done here.
Objective Data
-
Vital Signs
Temp Pulse Resp BP Pulse Ox
98.9 F 95 18 141/79 98
06/19/25 23:06 06/19/25 23:06 06/19/25 23:06 06/19/25 23:06 06/19/25 23:06
Intake & Output
06/19/25 06/20/25 06/21/25
06:59 06:59 06:59
Intake Total 1080 / 1080
Balance 1080 / 1080
Intake:
Oral fluids 1080 / 1080
Other:
Number of approximated SMALL 2
amounts of urine
Number of approximated MODERATE 2
amounts of urine
How many times incontinent 3 3
SATURATED amount urine
Number of unmeasured liquid
stools
Rectum 5
Physical Exam
-
General: No Acute Distress and AOx3
Abdomen: Soft, Non Distended and Tender (LLQ>RLQ)
Skin: Warm and Dry
[2025-06-20] MEDS: CYMBALTA DELAYED RELEASE 30 MG PO (08:14)
[2025-06-20] MEDS: QUESTRAN PO (08:14)
[2025-06-20] MEDS: FOLVITE 1 MG PO (08:14)
[2025-06-20] MEDS: FLORASTOR 250 MG PO ×2 (08:14→19:33)
[2025-06-20] MEDS: VITAMIN B1 100 MG PO ×2 (08:14→19:33)
[2025-06-20] MEDS: DESENEX/MITRAZOL/ZEASORB 1 APPLIC TOPICAL ×2 (08:15→19:34)
[2025-06-20 08:25] VITALS: BP 126/63
--- NOTE | 2025-06-20 09:20 | W.PN.GI.CBS2 ---
Addendum entered and electronically signed by Delisa Burkett, 06/20/25 15:45:
I spoke to her son Freddy for about 15 minutes going over the hospitalization, plan. He was very receptive and appreciative
Addendum entered and electronically signed by Delisa Burkett, 06/20/25 15:37:
Reviewed barium enema myself, also spoke with Dr. Craft and spoke to Dr. Medley in radiology. She has a severe nonobstructing stricture in the proximal sigmoid colon causing greater than 90% luminal narrowing. Likely secondary to benign
diverticular stricture and malignancy is less likely. Severe surrounding sigmoid diverticulosis.
I went and spoke to the patient who now understands she does need surgery. She would like to be transferred to [facility] for her surgical care.
Because of the degree of her stricture I would not put this off as elective outpatient but I would leave that up to surgery
I will call her son who lives in [place] to let him know.
I did reach out to Dr. Castillo to make him aware. Awaiting callback.
Original Note:
Today's Communication / Plan
-
-- Gastrografin enema
-- After results we will contact Dr. Castilol at [facility]
Assessment / Plan
-
85 yo F with pmhx alcohol use disorder, chronic diarrhea with prior c-diff requiring FMTx2 and prior Xifaxan use, vulvar cancer s/p resection (w/o radiation), h/o diverticulitis/colitis, HTN, hyperlipidemia, hypothyroidism, bipolar disorder, prior
joint replacements, with chronic stool and urine incontinence with increased stool volume and progressive weakness.
She has had incontinence of stool and urine for several years since she had c-diff infection. She will usually need to change her diaper 5x per day, but now worsened to >10x per day prior to admission. EGD with Dr. Smith in 2009 showed regular Z
line, GERD, normal stomach and duodenum; biopsies from that time showing chronic gastris and chronic esophagitis.
Assessment:
#Acute on Chronic Diarrhea
#Sigmoid stricture
#Tortuous Sigmoid Colon (2023, Flex Sig)
#Hypokalemia
#Chronic Stool Incontinence
#Chronic Urine Incontinence
#Transaminitis
#H/o of C. Diff infection requiring FMT x2, Xifaxan use
#Weight Loss
CT A/P with IV and oral contrast (06/18/2025):
- Moderate segment abnormal mural thickening along the proximal sigmoid colon, area of apparent luminal narrowing compatible with history of sigmoid stricture
- liquid stool throughout the proximal colon, no bowel obstruction
Stool studies:
- Norovirus (06/16) negative, Cdiff Toxin & Antigen (06/15) negative, Slmonella/Shigella, Campylobacter, Shiga toxin (06/15) negative
Plan:
Etiology of worsening stool incontinence/diarrhea most likely secondary to Sigmoid stricture with possible overflow vs. pelvic floor dysfunction vs. other
She has tried Lomotil and Imodium without improvement, now on Cholestyramine 4grams daily -- cont. Cholestyramine
CT Abd/Pelvis above confirming sigmoid stricture -- Colorectal consult for possible surgical intervention
Celiac testing -- HLA DQ2 positive, DQ8 negative
TSH wnl on 06/18
Abd US showing hepatic steatosis 06/15 -- most recent LFTs from 06/18 show down trend from admission
LLQ pain with low grade fever on admission concerning for colitis -- CT Abd/pelvis showing no evidence of colitis
Pending VIP, Calcitonin, Urine 5-HIAA, Urine Integration Assistant
Can consider anal manometry testing with outpatient GI Dr. Castillo
----06/20/2025: Agree with Gastrografin enema to assess the left colon
-- based on her history and having liquid stool in the proximal colon my concern is even if she has the diseased left colon removed she is still can have voluminous diarrhea
-- I would not opt to reconnect her and leave her with an ostomy for [id number] issues
-- In the future I would maximize bile salt binders with colestipol or Questran twice daily. Patient has not used Imodium in years and would do a trial of maximizing the Imodium
-- She also describes fat/oil, has pancreatic atrophy and prior low pancreatic elastase all consistent with pancreatic insufficiency which is likely contributing -patient states she did a trial of Creon with Dr. castillo and it was not helpful
-- Discussed surgical options and logistics. Even if she wants to go to [facility], she would need to figure out logistically how she would do that since she lives alone and she is 85. She says she would figure out
Her story to me is she has baseline 4-8 semiformed bowel movements(daily for over 10 years. Times of exacerbation like now where she will get watery stools that continue to leak out of her that drive her to dehydration and need hospitalization
When able need to increase protein and nutrition
Currently she is n.p.o. for the enema
Subjective
Subjective
Date of Service: June 20, 2025
Long conversation with the patient this morning regarding her history.
Objective
Data Reviewed
Laboratory Data:
Laboratory Results
Magnesium 2.4 mg/dl (1.6-2.3) H 06/16/25 08:28
Total Bilirubin 0.7 mg/dl (0.2-1.3) 06/18/25 11:07
AST 78 U/L (14-36) H 06/18/25 11:07
ALT 76 U/L (0-35) H 06/18/25 11:07
Alkaline Phosphatase 97 U/L (38-126) 06/18/25 11:07
Lipase 170 U/L (23-300) 06/15/25 11:08
Vital Signs and I&O:
Vital Signs
Temp Pulse Resp BP Pulse Ox
97.2 F 78 16 126/63 97
06/20/25 07:05 06/20/25 07:05 06/20/25 07:05 06/20/25 07:05 06/20/25 07:05
I&O
06/19/25 06/20/2525
06:59 06:59 06:59
Intake Total 1080 / 1080
Balance 1080 / 1080
Physical Exam
Physical Exam
HEENT: Anicteric
Pulmonary: Clear
GI: Soft, Non Distended and Tender (Left-sided abdominal tenderness)
Extremities: No Edema and Other
Neuro: Non Focal
--- NOTE | 2025-06-20 10:19 | CM ---
Home with [facility].
Plan; [facility] at discharge.
--- NOTE | 2025-06-20 11:27 | PTCARENOTE ---
Patient returned from Gastrografin enema MRI. She expressed that she was unhappy that she isn't able to eat due to her NPO status not being changed yet, and we ([facility] and I) explained to her that it is up to the doctor to change the order and that
we are awaiting a response only a few minutes after sending him a [place] Text. I texted GI and colorectal, still awaiting response.
--- NOTE | 2025-06-20 12:25 | PTCARENOTE ---
Colorectal responded that they want to check results of gastrograffin emema done this am before ordering a diet for patient. Pt was informed , continued to express 'I am unhappy with this whole situation ' Hospitalist aware also and will keep
patient updated.
--- NOTE | 2025-06-20 12:49 | W.PN.HOSP.TC ---
Today's Communication/Plan
-
await Gastrografin enema results
Assessment / Plan
Assessment / Plan
Assessment:
Acute on chronic diarrhea
- Patient has been dealing with chronic diarrhea for some time and had extensive workup in the past per patient
- Patient with history of C. difficile and rechecked and has been negative
- Stool culture negative till date.
- Noro virus negative
- Possible flare-up of chronic diarrhea from any viral illness vs other
- GI following; further workup sent
- continue cholestyramine BID, prn Lomotil
- probiotics added
- CT A/P: Moderate segment abnormal mural thickening along the proximal sigmoid colon as above. Along this segment, there is area of apparent luminal narrowing which is persistent on the delayed phase images compatible with the given history of
sigmoid stricture. There is also abnormal eccentric contrast along the posterior wall of the proximal sigmoid colon as above. Exact etiology of this is indeterminate, but longitudinal intramural fistula would be a consideration.
- Colorectal evaluation
- diet: fulls
- Gastrografin enema results pending
Hypokalemia
- Replace as needed
History of C. difficile colitis
- Patient have undergone 2 fecal transplant, last one 8 years back at [place]
- C. difficile antigen/toxin negative this visit
Generalized weakness
- PT/OT evals - patient desires SNF
Depression/anxiety
- Continue trazodone/Duloxetine
DVT prophylaxis: Lovenox
Code: Full
Anticipated Discharge: 24 - 48 hours
Subjective/Interval History
-
Date of Service: June 20, 2025
Patient states she is the same. She is still having loose stools.
Objective Data
-
Vital Signs:
Vital Signs
Temp Pulse Resp BP Pulse Ox
97.2 F 78 16 126/63 97
06/20/25 07:05 06/20/25 07:05 06/20/25 07:05 06/20/25 07:05 06/20/25 07:05
I&O
06/19/25 06/20/25 06/21/25
06:59 06:59 06:59
Intake Total 1080 / 1080
Balance 1080 / 1080
Physical Exam
-
General: No Apparent Distress
HEENT: Normocephalic and Atraumatic
Respiratory: Negative Wheezes
Cardiac: Regular Rhythm and S1/S2
GI: Soft
Neuro: AO x 3
Psych: Calm
Data Reviewed
-
Total Time Spent with Patient (in minutes): 42
Labs: Labs Reviewed by me
--- NOTE | 2025-06-20 12:50 | PTCARENOTE ---
Patient returned from Gastrografin enema MRI. She expressed that she was unhappy that she isn't able to eat due to her NPO status not being changed yet, and nursing explained to her that it is up to the doctor to change the order and that we are
awaiting a response only a few minutes after sending him a [place] Text. I texted GI and colorectal, colorectal responded that they want to read her results before they order diet. Patient was informed, but stated she was 'not happy' with this
situation. Emotional support provided.
[2025-06-20 15:19] VITALS: BP 140/80
[2025-06-20] MEDS: QUESTRAN 4 GRAM PO (16:01)
--- NOTE | 2025-06-20 16:12 | W.IMMPOSTOP ---
Addendum entered and electronically signed by Samuel Craft MD 06/20/25 17:07:
The note below is regarding a different patient.
Original Note:
Surgical Immed Post Op Note
-
Primary Surgeon: Leni Craft MD
Assisting Surgeon: Yo Wiggins [id number]
Pre-op Diagnosis: ulcerative pancolitis with perforation
Post-op Diagnosis: same
Procedure Performed: total abdominal colectomy with end ileostomy
Anesthesia Type: general plus local
Specimen / Cultures: 1) abdominal fluid culture abdominal colon
Estimated Blood Loss: 50 cc
Complications: no immediate
Operative Findings: diseased/friable colon with sigmoid perforation
#19 Asher in pelvis.
!/2 inch transanal Lincoln drain to decompress rectal stump.
NGT confirmed to be in stomach.
Vaz in bladder.
Staying intubated and going to ICU.
[2025-06-20] MEDS: LOVENOX 40 MG SC (17:25)
[2025-06-20] MEDS: LOMOTIL 1 TABLET PO (22:18)
[2025-06-20] MEDS: MELATONIN 10 MG PO (22:19)
[2025-06-20] MEDS: DESYREL 50 MG PO (22:19)
[2025-06-20 22:57] VITALS: BP 120/68
[2025-06-21] MEDS: TYLENOL 650 MG PO ×3 (05:02→21:24)
[2025-06-21 07:05] VITALS: BP 131/64
[2025-06-21] MEDS: CYMBALTA DELAYED RELEASE 30 MG PO (07:54)
[2025-06-21] MEDS: VITAMIN B1 100 MG PO ×2 (07:54→19:07)
[2025-06-21] MEDS: FOLVITE 1 MG PO (07:54)
[2025-06-21] MEDS: DESENEX/MITRAZOL/ZEASORB 1 APPLIC TOPICAL ×2 (07:54→19:09)
[2025-06-21] MEDS: FLORASTOR 250 MG PO ×2 (07:54→19:07)
[2025-06-21] MEDS: QUESTRAN 4 GRAM PO ×2 (07:57→17:23)
--- NOTE | 2025-06-21 09:57 | CM ---
Addendum entered by Jenn Edgar 06/21/25 11:55:
PT notified that her status has been changed from OBS to inpatient.
Original Note:
Met with pt at bedside; IMM given and placed on chart. Chart reviewed. Pt d/c. Will transfer pt to [facility] next week when bed is available
Plan: d/c to [facility] when bed is available
--- NOTE | 2025-06-21 10:44 | W.PN.HOSP.TC ---
Today's Communication/Plan
-
refusing TPN, continue fulls+supplements
pending transfer to [facility]
Assessment / Plan
Assessment / Plan
Assessment:
Acute on chronic diarrhea
- Patient has been dealing with chronic diarrhea for some time and had extensive workup in the past per patient
- Patient with history of C. difficile and rechecked and has been negative
- Stool culture negative till date.
- Noro virus negative
- Possible flare-up of chronic diarrhea from any viral illness vs other
- GI following; further workup sent
- continue cholestyramine BID, prn Lomotil
- probiotics added
- CT A/P: Moderate segment abnormal mural thickening along the proximal sigmoid colon as above. Along this segment, there is area of apparent luminal narrowing which is persistent on the delayed phase images compatible with the given history of
sigmoid stricture. There is also abnormal eccentric contrast along the posterior wall of the proximal sigmoid colon as above. Exact etiology of this is indeterminate, but longitudinal intramural fistula would be a consideration.
- GG Enema: SEVERE NONOBSTRUCTING STRICTURE in the PROXIMAL SIGMOID COLON causing greater than 90% diameter luminal narrowing. A SEVERE DIVERTICULAR STRICTURE is considered most likely. A malignant stricture (colon adenocarcinoma) is a less likely
diagnostic possibility. Severe diverticulosis in the sigmoid colon.
- Colorectal evaluation; patient offered sigmoid resection and Ostomy. Patient prefers transfer to [facility]. d/w [facility] on 06/[address] Monroe (Colorectal surgery)
- diet: Fulls with supplementals. TPN requested by [facility] Colorectal surgery service. D/W patient and currently refusing.
Hypokalemia
- Replace as needed
History of C. difficile colitis
- Patient have undergone 2 fecal transplant, last one 8 years back at [facility]
- C. difficile antigen/toxin negative this visit
Generalized weakness
Depression/anxiety
- Continue trazodone/Duloxetine
DVT prophylaxis: Lovenox
Code: Full
Dispo: Pending transfer to [facility], for Colorectal surgery - accepting is Dr. Jasmin Monroe (Colorectal surgery)
Anticipated Discharge: > 48 hours
Subjective/Interval History
-
Date of Service: June 21, 2025
resting comfortably, no complaints at present
discussed transfer and recommendation from [facility] surgery for TPN, but patient wants to hold off
Objective Data
-
Labs:
Laboratory Results
06/21/25
06:00
WBC Pending
Hgb Pending
Hct Pending
Plt Count Pending
Sodium Pending
Potassium Pending
Chloride Pending
Carbon Dioxide Pending
BUN Pending
Creatinine Pending
Glucose Pending
Calcium Pending
Total Bilirubin Pending
AST Pending
ALT Pending
Alkaline Phosphatase Pending
Vital Signs:
Vital Signs
Temp Pulse Resp BP Pulse Ox
97.9 F 80 18 131/64 97
06/21/25 07:05 06/21/25 07:05 06/21/25 07:05 06/21/25 07:05 06/21/25 07:05
I&O
06/20/25 06/21/25 06/22/25
06:59 06:59 06:59
Intake Total 1080 / 1080 720 / 720
Balance 1080 / 1080 720 / 720
Physical Exam
-
General: No Apparent Distress
HEENT: Normocephalic and Atraumatic
Respiratory: Negative Wheezes
Cardiac: Regular Rhythm and S1/S2
GI: Soft
Musculoskeletal: No Edema
Neuro: AO x 3
Psych: Calm
Data Reviewed
-
Total Time Spent with Patient (in minutes): 42
Labs: Labs Reviewed by me
--- NOTE | 2025-06-21 10:50 | W.PN.CRS1 ---
Today's Communication / Plan
-
Sign off
Transfer to [place] [facility]
Patient is not interested in surgery at our facility
Assessment/Plan
-
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
on CT and Gastrografin enema performed 06/20/2025
Plan:
- Patient states that she does not want to have care at our facility and would like to be transferred to [facility]. Arrangements in place with hospitalist.
- No plans for surgery today, we do offer surgery for tomorrow with the patient is not interested.
- Will sign off. Please contact us if further issues arise.
Subjective Data
Subjective Data
Date of Service: June 21, 2025
Patient states that she is 'not great'. She has little bit of lower abdominal cramping. She continues to have diarrhea.
Objective Data
-
Vital Signs
Temp Pulse Resp BP Pulse Ox
97.9 F 80 18 131/64 97
06/21/25 07:05 06/21/25 07:05 06/21/25 07:05 06/21/25 07:05 06/21/25 07:05
Intake & Output
06/20/25 06/21/25 06/22/25
06:59 06:59 06:59
Intake Total 1080 / 1080 720 / 720
Balance 1080 / 1080 720 / 720
Intake:
Oral fluids 1080 / 1080 720 / 720
Other:
Number of approximated SMALL 2
amounts of urine
Number of approximated MODERATE 2
amounts of urine
How many times incontinent 3 1
SATURATED amount urine
Number of unmeasured liquid
stools
Rectum 5
Lab Results
06/21/25 06:00
06/21/25 06:00
Physical Exam
-
General: No Acute Distress and AOx3
Abdomen: Soft, Non Distended and Tender (Left lower quadrant, mild)
--- NOTE | 2025-06-21 13:56 | W.PN.GI.CBS2 ---
Today's Communication / Plan
-
-- optimize liquid nutrition
-- avoid anti-diarrheals since she will be going to surgery
-- discussed with Dr. Sesay and Dr. Cervantes
-- GI will sign off, but happy to help if needed
Assessment / Plan
-
85 yo F with pmhx alcohol use disorder, chronic diarrhea >10yrs with prior c-diff requiring FMTx2 and prior Xifaxan use, vulvar cancer s/p resection (w/o radiation), h/o diverticulitis/colitis, HTN, hyperlipidemia, hypothyroidism, bipolar disorder,
prior joint replacements, with chronic stool and urine incontinence with increased stool volume and progressive weakness found to have >90% obstructing stricture in the sigmoid likely secondary to benign diverticular disease.
Most recent attempt at colonoscopy was in 2023 at [facility] where they were unable to traverse the sigmoid.
She has had incontinence of stool and urine for several years since she had c-diff infection. She will usually need to change her diaper 5x per day, but now worsened to >10x per day prior to admission. EGD with Dr. Smith in 2009 showed regular Z
line, GERD, normal stomach and duodenum; biopsies from that time showing chronic gastris and chronic esophagitis.
Assessment:
#Acute on Chronic Diarrhea
#Sigmoid stricture
#Tortuous Sigmoid Colon (2023, Flex Sig)
#Hypokalemia
#Chronic Stool Incontinence
#Chronic Urine Incontinence
#Transaminitis
#H/o of C. Diff infection requiring FMT x2, Xifaxan use
#Weight Loss
CT A/P with IV and oral contrast (06/18/2025):
- Moderate segment abnormal mural thickening along the proximal sigmoid colon, area of apparent luminal narrowing compatible with history of sigmoid stricture
- liquid stool throughout the proximal colon, no bowel obstruction
Stool studies:
- Norovirus (06/16) negative, Cdiff Toxin & Antigen (06/15) negative, Slmonella/Shigella, Campylobacter, Shiga toxin (06/15) negative
06/20/2025 severe nonobstructing stricture in the proximal sigmoid colon causing greater than 90% luminal narrowing. Likely secondary to benign diverticular stricture and malignancy is less likely. Severe surrounding sigmoid diverticulosis.
Plan:
--Acute on chronic diarrhea for greater than 10 years but frequency is twice her baseline
--Prior workup including microscopic colitis, celiac testing, secretory workup, fecal fats have all been negative in the past
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
--Known to Dr. Daryl Castillo at [facility]. I did text him to let him know she is here
--Greater than 90% narrowing and a likely benign sigmoid stricture probably from diverticular disease is present and therefore surgical intervention is necessary
--Patient refusing surgery here at [facility]
--I discussed with her son yesterday in detail
-- Optimize nutrition prior to surgery. Patient is currently refusing TPN. Maximize protein intake with liquid diet
-- Awaiting transfer to [place]
I would recommend a permanent ostomy in her case since I doubt the sigmoid stricture is the cause of her chronic longstanding greater than 1 decade of diarrhea and if she gets reconnected in the same surgery, she will likely have persistent
incontinence and diarrhea and poor quality of life
Pending VIP, Calcitonin, Urine 5-HIAA, Urine Health Management Consultant
Subjective
Subjective
Date of Service: June 21, 2025
continues with diarrhea and fecal incontinence. Still refusing surgery here at [facility].
Objective
Data Reviewed
Laboratory Data:
Laboratory Results
06/21/25 06:00
06/21/25 06:00
Laboratory Results
Magnesium 2.4 mg/dl (1.6-2.3) H 06/16/25 08:28
Total Bilirubin Cancelled 06/21/25 06:00
AST Cancelled 06/21/25 06:00
ALT Cancelled 06/21/25 06:00
Alkaline Phosphatase Cancelled 06/21/25 06:00
Lipase 170 U/L (23-300) 06/15/25 11:08
Vital Signs and I&O:
Vital Signs
Temp Pulse Resp BP Pulse Ox
97.9 F 80 18 131/64 97
06/21/25 07:05 06/21/25 07:05 06/21/25 07:05 06/21/25 07:05 06/21/25 07:05
I&O
06/20/25 06/21/25 06/22/25
06:59 06:59 06:59
Intake Total 1080 / 1080 720 / 720
Balance 1080 / 1080 720 / 720
Physical Exam
Physical Exam
GI: Soft and Non Distended
[2025-06-21 14:02] LABS: VIP Results 65.0 pg/mL (0.0-89.1)
[2025-06-21 15:05] VITALS: BP 107/53
[2025-06-21] MEDS: LOVENOX 40 MG SC (17:23)
[2025-06-21] MEDS: MELATONIN 10 MG PO (21:24)
[2025-06-21] MEDS: DESYREL 50 MG PO (21:24)
[2025-06-21 22:56] VITALS: BP 162/77
[2025-06-22] MEDS: TYLENOL 650 MG PO (04:04)
[2025-06-22 07:05] VITALS: BP 107/61
[2025-06-22 08:04] VITALS: BP 107/61
[2025-06-22] MEDS: FLORASTOR 250 MG PO ×2 (09:04→19:55)
[2025-06-22] MEDS: VITAMIN B1 100 MG PO ×2 (09:04→19:55)
[2025-06-22] MEDS: CYMBALTA DELAYED RELEASE 30 MG PO (09:04)
[2025-06-22] MEDS: FOLVITE 1 MG PO (09:04)
[2025-06-22] MEDS: QUESTRAN 4 GRAM PO ×2 (09:05→18:36)
[2025-06-22] MEDS: DESENEX/MITRAZOL/ZEASORB 1 APPLIC TOPICAL ×2 (09:06→19:55)
--- NOTE | 2025-06-22 09:23 | CM ---
Reviewed chart. No change in discharge plans
Plan: D/C to [facility] when bed available.
--- NOTE | 2025-06-22 09:31 | PN.CDI ---
CDI
- -
CDI:
Physician Documentation Request
Admit Date: 06/21/25 08:20
Dear Doctor Helen,
Clinical Indicators:
Patient admitted with acute on chronic diarrhea.
WBC, RBC, Plts:
06/19/25
06:33
WBC 3.7 L
RBC 3.33 L
Hgb 10.4 L
Plt Count 126 L
Based on the above, could you clarify in the progress notes, the appropriate diagnosis, if significant, that supports the above abnormalities and additional evaluation, monitoring and/or treatment rendered:
Pancytopenia
Abnormal lab values, clinically insignificant
Other
Use of terms such as suspected, likely, concern for, or probable (associated with a specific diagnosis that is being evaluated, monitored, or treated as if it exists) are acceptable and can be coded in the inpatient setting, when documented at the
time of discharge.
Thank you,
MIKHAIL Nowak RN
CDI Specialist
available via tiger text
Please use your independent medical judgment in providing your response.
[2025-06-22 12:21] VITALS: BMI 28.8
--- NOTE | 2025-06-22 13:31 | W.PN.HOSP.TC ---
Today's Communication/Plan
-
pending transfer to [facility]
PICC for TPN. d/w Pharmacy, IV team, nutrition, RN
Assessment / Plan
Assessment / Plan
Assessment:
Acute on chronic diarrhea
- Patient has been dealing with chronic diarrhea for some time and had extensive workup in the past per patient
- Patient with history of C. difficile and rechecked and has been negative
- Stool culture negative till date.
- Noro virus negative
- Possible flare-up of chronic diarrhea from any viral illness vs other
- GI following; further workup sent
- continue cholestyramine BID, prn Lomotil
- probiotics added
- CT A/P: Moderate segment abnormal mural thickening along the proximal sigmoid colon as above. Along this segment, there is area of apparent luminal narrowing which is persistent on the delayed phase images compatible with the given history of
sigmoid stricture. There is also abnormal eccentric contrast along the posterior wall of the proximal sigmoid colon as above. Exact etiology of this is indeterminate, but longitudinal intramural fistula would be a consideration.
- GG Enema: SEVERE NONOBSTRUCTING STRICTURE in the PROXIMAL SIGMOID COLON causing greater than 90% diameter luminal narrowing. A SEVERE DIVERTICULAR STRICTURE is considered most likely. A malignant stricture (colon adenocarcinoma) is a less likely
diagnostic possibility. Severe diverticulosis in the sigmoid colon.
- Colorectal evaluation; patient offered sigmoid resection and Ostomy. Patient prefers transfer to [facility]. d/w NIR on 06/[address] Monroe (Colorectal surgery)
- diet: Fulls with supplementals. TPN requested by [facility] Colorectal surgery service. Patient initially refused but now agreeable.
Hypokalemia
- Replace as needed
History of C. difficile colitis
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
- C. difficile antigen/toxin negative this visit
Generalized weakness
Depression/anxiety
- Continue trazodone/Duloxetine
DVT prophylaxis: Lovenox
Code: Full
Dispo: Pending transfer to [facility], for Colorectal surgery - accepting is Dr. Jasmin Monroe (Colorectal surgery)
Anticipated Discharge: > 48 hours
Subjective/Interval History
-
Date of Service: June 22, 2025
resting comfortably, no complaints
now agreeable to labs and TPN
Objective Data
-
Labs:
Laboratory Results
06/22/25
13:07
WBC Pending
Hgb Pending
Hct Pending
Plt Count Pending
Sodium Pending
Potassium Pending
Chloride Pending
Carbon Dioxide Pending
BUN Pending
Creatinine Pending
Glucose Pending
Calcium Pending
Total Bilirubin Pending
AST Pending
ALT Pending
Alkaline Phosphatase Pending
Vital Signs:
Vital Signs
Temp Pulse Resp BP Pulse Ox
97.8 F 85 14 107/61 99
06/22/25 07:05 06/22/25 07:05 06/22/25 07:05 06/22/25 07:05 06/22/25 10:22
I&O
06/21/25 06/22/25 06/23/25
06:59 06:59 06:59
Intake Total 720 / 720 810 / 810
Balance 720 / 720 810 / 810
Physical Exam
-
General: No Apparent Distress
HEENT: Normocephalic and Atraumatic
Respiratory: Negative Wheezes
Cardiac: Regular Rhythm and S1/S2
GI: Soft and Nontender
Neuro: AO x 3
Psych: Calm
Data Reviewed
-
Total Time Spent with Patient (in minutes): 42
Labs: Labs Reviewed by me
[2025-06-22 13:37] LABS: ALT (SGPT) 62 U/L (0-35); AST (SGOT) 48 U/L (14-36); Albumin 3.6 g/dl (3.5-5.0); Alkaline Phosphatase 133 U/L (38-126); Blood Urea Nitrogen 13 mg/dl (7-17); Calcium 9.4 mg/dl (8.4-10.2); Carbon Dioxide 30 mmol/L (22-30); Chloride 105 mmol/L (98-107); Estimated Creatinine Clearance 45 ml/min; Glucose 98 mg/dl (70-99); Magnesium 2.3 mg/dl (1.6-2.3); Potassium 3.0 mmol/L (3.5-5.1); Sodium 141 mmol/L (135-145); Total Protein 6.7 g/dl (6.3-8.2); eGFR > 60.00
[2025-06-22 13:38] LABS: Hematocrit 32.4 % (37.0-47.0); Hemoglobin 11.1 g/dL (12.0-16.0); Mean Corp Hgb Conc. 34.3 g/dL (33.0-37.0); Mean Corpuscular Volume 91.8 fL (81.0-99.0); Platelet Count 211 10^3/uL (130-400); Red Cell Dist. Width 13.5 % (11.5-14.5)
[2025-06-22 16:47] LABS: ALT (SGPT) 56 U/L (0-35); AST (SGOT) 43 U/L (14-36); Albumin 3.3 g/dl (3.5-5.0); Alkaline Phosphatase 119 U/L (38-126); Blood Urea Nitrogen 14 mg/dl (7-17); Calcium 8.6 mg/dl (8.4-10.2); Carbon Dioxide 30 mmol/L (22-30); Chloride 105 mmol/L (98-107); Estimated Creatinine Clearance 45 ml/min; Glucose 108 mg/dl (70-99); Magnesium 2.2 mg/dl (1.6-2.3); Potassium 3.1 mmol/L (3.5-5.1); Sodium 138 mmol/L (135-145); Total Protein 6.0 g/dl (6.3-8.2); Triglycerides 156 mg/dl (10-149); eGFR > 60.00
[2025-06-22] MEDS: KCL 270 MEQ IV (18:31)
[2025-06-22] MEDS: LOVENOX 40 MG SC (18:36)
--- NOTE | 2025-06-22 18:42 | VATNOTE ---
Per radiology report, Picc line is coiled and then tip terminates in the superior vena cava. Redirected with a guidewire and brisk flush with 10ml nss. Brisk blood return from each lumen with PICC having 3cms retracted. Redressed and repeat chest
x-ray ordered.
[2025-06-22] MEDS: Parenteral Nutrition, Central 1200 IV (20:55)
[2025-06-22 22:34] LABS: Glucose - Point of Care 114 mg/dl (70-99)
[2025-06-22] MEDS: MELATONIN 10 MG PO (22:55)
[2025-06-22] MEDS: DESYREL 50 MG PO (22:55)
[2025-06-22 23:06] VITALS: BP 128/86
[2025-06-23 04:35] LABS: Glucose - Point of Care 128 mg/dl (70-99)
[2025-06-23 06:00] VITALS: BMI 27.6
[2025-06-23 07:25] VITALS: BP 131/86
[2025-06-23 08:48] LABS: Hematocrit 28.7 % (37.0-47.0); Hemoglobin 9.8 g/dL (12.0-16.0); Mean Corp Hgb Conc. 34.1 g/dL (33.0-37.0); Mean Corpuscular Volume 91.4 fL (81.0-99.0); Platelet Count 179 10^3/uL (130-400); Red Cell Dist. Width 13.4 % (11.5-14.5)
[2025-06-23 09:13] LABS: Blood Urea Nitrogen 13 mg/dl (7-17); Calcium 8.8 mg/dl (8.4-10.2); Carbon Dioxide 28 mmol/L (22-30); Chloride 110 mmol/L (98-107); Estimated Creatinine Clearance 44 ml/min; Glucose 114 mg/dl (70-99); Magnesium 2.3 mg/dl (1.6-2.3); Potassium 3.7 mmol/L (3.5-5.1); Sodium 141 mmol/L (135-145); eGFR > 60.00
[2025-06-23] MEDS: QUESTRAN 4 GRAM PO ×2 (09:40→18:04)
[2025-06-23] MEDS: FLORASTOR 250 MG PO ×2 (09:40→20:47)
[2025-06-23] MEDS: VITAMIN B1 100 MG PO ×2 (09:40→20:47)
[2025-06-23] MEDS: FOLVITE 1 MG PO (09:40)
[2025-06-23] MEDS: CYMBALTA DELAYED RELEASE 30 MG PO (09:40)
[2025-06-23] MEDS: DESENEX/MITRAZOL/ZEASORB 1 APPLIC TOPICAL ×2 (09:44→20:47)
--- NOTE | 2025-06-23 09:51 | W.PN.HOSP.TC ---
Addendum entered and electronically signed by Todd Cervantes MD 06/23/25 10:26:
Pancytopenia - unclear etiology. Platelts improved. leukopenia persists along with anemia, suspect both are chronic. no sign of bleeding or infection.
Original Note:
Today's Communication/Plan
-
pending transfer to [facility]
PICC for TPN. d/w Pharmacy, nutrition, RN
Assessment / Plan
Assessment / Plan
Assessment:
Acute on chronic diarrhea
- Patient has been dealing with chronic diarrhea for some time and had extensive workup in the past per patient
- Patient with history of C. difficile and rechecked and has been negative
- Stool culture negative till date.
- Noro virus negative
- Possible flare-up of chronic diarrhea from any viral illness vs other
- GI following; further workup sent
- continue cholestyramine BID, prn Lomotil
- probiotics added
- CT A/P: Moderate segment abnormal mural thickening along the proximal sigmoid colon as above. Along this segment, there is area of apparent luminal narrowing which is persistent on the delayed phase images compatible with the given history of
sigmoid stricture. There is also abnormal eccentric contrast along the posterior wall of the proximal sigmoid colon as above. Exact etiology of this is indeterminate, but longitudinal intramural fistula would be a consideration.
- GG Enema: SEVERE NONOBSTRUCTING STRICTURE in the PROXIMAL SIGMOID COLON causing greater than 90% diameter luminal narrowing. A SEVERE DIVERTICULAR STRICTURE is considered most likely. A malignant stricture (colon adenocarcinoma) is a less likely
diagnostic possibility. Severe diverticulosis in the sigmoid colon.
- Colorectal evaluation; patient offered sigmoid resection and Ostomy. Patient prefers transfer to [facility]. d/w NIR on 06/[address] Monroe (Colorectal surgery)
- diet: Fulls with supplementals. TPN requested by [facility] Colorectal surgery service. daily TPN with pharmacy dosing assistance via PICC line.
Hypokalemia
- Replace as needed
History of C. difficile colitis
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
- C. difficile antigen/toxin negative this visit
Generalized weakness
Depression/anxiety
- Continue trazodone/Duloxetine
DVT prophylaxis: Lovenox
Code: Full
Dispo: Pending transfer to [facility], for Colorectal surgery - accepting is Dr. Jasmin Monroe (Colorectal surgery)
Anticipated Discharge: > 48 hours
Subjective/Interval History
-
Date of Service: June 23, 2025
reports infusion related pain in PICC at 50 cc/hour, wants to reduce rate to 40 cc/hour
Objective Data
-
Labs:
Laboratory Results
06/23/25
08:27
WBC 2.5 L
Hgb 9.8 L
Hct 28.7 L
Plt Count 179
Sodium 141
Potassium 3.7
Chloride 110 H
Carbon Dioxide 28
BUN 13
Creatinine 0.7
Glucose 114 H
Calcium 8.8
Vital Signs:
Vital Signs
Temp Pulse Resp BP Pulse Ox
98.4 F 85 18 131/86 92
06/23/25 07:25 06/23/25 07:25 06/23/25 07:25 06/23/25 07:25 06/23/25 07:25
I&O
06/22/25 06/23/25 06/24/25
06:59 06:59 06:59
Intake Total 810 / 810 500 / 500
Balance 810 / 810 500 / 500
Physical Exam
-
General: No Apparent Distress
HEENT: Normocephalic and Atraumatic
Respiratory: Negative Wheezes
Cardiac: Regular Rhythm and S1/S2
GI: Soft
Genito-urinary: No Costovertebral Tender
Neuro: AO x 3
Psych: Calm
Data Reviewed
-
Total Time Spent with Patient (in minutes): 41
Labs: Labs Reviewed by me
--- NOTE | 2025-06-23 12:57 | CS.PSYCHR ---
Consult Summary - Psychiatry
-
Patient seen by me on 06/23/2025 from 12PM-12:30pm
Psychiatry consult for depression management. Chart reviewed. 85 yo female with past history of depression and anxiety admitted 06/15/2025 with generalized weakness and diarrhea. Current plan is for transfer to [facility] for sigmoid stricture
surgery next week. Patient was interested in discussing her psychiatric medications to formulate plan for their management. She states she was started on cymbalta 30mg daily in January during her last admission here and while she has tolerated it well
overall and believes it has helped, she would like input on whether to increase it, leave it, or replace it with an alternative medication. She admits to increased emotional stress in light of her medical issues. We discussed the potential risks and
benefits of the possible medication adjustments we could make. She states she feels stable enough at this time to leave the regimen as is and reassess this question after she has recovered from surgery.
MSE- AAOx3 , fluent spontaneous speech. logical and goal directed thought process. mood is dysphoric affect normal. denies active SI. no psychosis. insight and justment are intact/
D&A- history of alcoholism but no excess use in several years. she says she drinks two small glasses of wine occasionally at this point.
past psych hx- history of depression and anxiety; she was previously on zoloft 50mg daily which was switched to cymbalta 30mg daily at last medical admission here in January 2025. She also takes melatonin 10mg HS and trazodone 50mg HS. she has not
been in recent therapy
PMH- history of vulvar cancer w resection, chronic diarrhea, c. diff colitis multiple occations, h/o fecal transplants, chronic urinary incontinence, hypothyroidism, Vit D def, LBBB, diverticulosis
Social- Lives alone. lost her cousin with whom she was very close last year. son lives in [place]. worked as [employer] at [place] [employer]. daughter in [place] struggles w medical illness. patient loves to read and requests book recs.
A/P- 85 yo female with major depression recurrent, without psychosis. Will continue her current psychiatric medication regimen as is for now. Once surgery is complete, can then consider next step in management but for now patient agrees that making
changes could only complicate an already complicated picture. I will continue follow up with her as she seems to benefit from individual therapy while in the hospital.
[2025-06-23 15:33] VITALS: BP 166/99
--- NOTE | 2025-06-23 15:53 | CM ---
CM reviewed chart, reviewed with Hospitalist. Plan for transfer to [facility] when bed available, earliest Wednesday next week.
Plan; transfer [place] next week
[2025-06-23] MEDS: LOVENOX 40 MG SC (18:04)
[2025-06-23] MEDS: TYLENOL 650 MG PO (20:51)
[2025-06-23] MEDS: Parenteral Nutrition, Central 1500 IV (20:52)
[2025-06-23] MEDS: DESYREL 50 MG PO (22:26)
[2025-06-23] MEDS: MELATONIN 10 MG PO (22:26)
[2025-06-23 23:29] VITALS: BP 110/58
[2025-06-24 06:00] VITALS: BMI 28.5
[2025-06-24 07:17] VITALS: BP 135/67
[2025-06-24] MEDS: FOLVITE 1 MG PO (07:27)
[2025-06-24] MEDS: FLORASTOR 250 MG PO ×2 (07:27→20:03)
[2025-06-24] MEDS: DESENEX/MITRAZOL/ZEASORB 1 APPLIC TOPICAL ×2 (07:27→20:02)
[2025-06-24] MEDS: VITAMIN B1 100 MG PO ×2 (07:27→20:03)
[2025-06-24] MEDS: CYMBALTA DELAYED RELEASE 30 MG PO (07:28)
[2025-06-24] MEDS: QUESTRAN 4 GRAM PO ×2 (07:28→17:18)
[2025-06-24 09:05] LABS: Hematocrit 28.4 % (37.0-47.0); Hemoglobin 9.6 g/dL (12.0-16.0); Mean Corp Hgb Conc. 33.8 g/dL (33.0-37.0); Mean Corpuscular Volume 92.2 fL (81.0-99.0); Platelet Count 194 10^3/uL (130-400); Red Cell Dist. Width 13.2 % (11.5-14.5)
[2025-06-24 09:25] LABS: Magnesium 2.3 mg/dl (1.6-2.3)
[2025-06-24 09:26] LABS: ALT (SGPT) 37 U/L (0-35); AST (SGOT) 30 U/L (14-36); Albumin 3.2 g/dl (3.5-5.0); Alkaline Phosphatase 108 U/L (38-126); Blood Urea Nitrogen 15 mg/dl (7-17); Calcium 8.2 mg/dl (8.4-10.2); Carbon Dioxide 27 mmol/L (22-30); Chloride 109 mmol/L (98-107); Estimated Creatinine Clearance 52 ml/min; Glucose 125 mg/dl (70-99); Potassium 3.6 mmol/L (3.5-5.1); Sodium 140 mmol/L (135-145); Total Protein 5.9 g/dl (6.3-8.2); eGFR > 60.00
--- NOTE | 2025-06-24 11:07 | W.PN.UPDATE ---
Update Note
Progress Note Update
Patient seen by me on 06/24/2025 from 10:20am-10:40am
Psychiatry follow up for depression. Patient reports sleeping well last night and feeling in better spirits this morning. She enjoyed watching football yesterday and plans to do so again today. She remains comfortable with plan to continue her
current psychiatric medication regimen and reevaluate need for adjustments after her upcoming surgery.
On MSE, she is pleasant, bright and cooperative with spontaneous speech and logical goal directed thought process. She denies SI/HI/AVH. No delusions. Fully oriented. I/J intact
A/P- 85 yo female with major depression recurrent, without psychosis, doing well today. Will continue her current psychiatric medication regimen as is and continue follow up as she is doing well with some individual therapy/support while in the
hospital.
--- NOTE | 2025-06-24 14:03 | W.PN.HOSP.TC ---
Today's Communication/Plan
-
pending transfer to [facility]
PICC for TPN. d/w Pharmacy, RN
Assessment / Plan
Assessment / Plan
Assessment:
Acute on chronic diarrhea
- Patient has been dealing with chronic diarrhea for some time and had extensive workup in the past per patient
- Patient with history of C. difficile and rechecked and has been negative
- Stool culture negative till date.
- Noro virus negative
- Possible flare-up of chronic diarrhea from any viral illness vs other
- GI following; further workup sent
- continue cholestyramine BID, prn Lomotil
- probiotics added
- CT A/P: Moderate segment abnormal mural thickening along the proximal sigmoid colon as above. Along this segment, there is area of apparent luminal narrowing which is persistent on the delayed phase images compatible with the given history of
sigmoid stricture. There is also abnormal eccentric contrast along the posterior wall of the proximal sigmoid colon as above. Exact etiology of this is indeterminate, but longitudinal intramural fistula would be a consideration.
- GG Enema: SEVERE NONOBSTRUCTING STRICTURE in the PROXIMAL SIGMOID COLON causing greater than 90% diameter luminal narrowing. A SEVERE DIVERTICULAR STRICTURE is considered most likely. A malignant stricture (colon adenocarcinoma) is a less likely
diagnostic possibility. Severe diverticulosis in the sigmoid colon.
- Colorectal evaluation; patient offered sigmoid resection and Ostomy. Patient prefers transfer to [facility]. d/w NIR on 06/[address] Monroe (Colorectal surgery)
- diet: Fulls with supplementals. TPN requested by [facility] Colorectal surgery service. daily TPN with pharmacy dosing assistance via PICC line.
Hypokalemia
- Replace as needed
History of C. difficile colitis
- Patient have undergone 2 fecal transplant, last one 8 years back at [facility]
- C. difficile antigen/toxin negative this visit
Generalized weakness
Depression/anxiety
- Continue trazodone/Duloxetine
Pancytopenia - unclear etiology. Platelets improved. leukopenia persists along with anemia, suspect both are chronic. no sign of bleeding or infection.
DVT prophylaxis: Lovenox
Code: Full
Dispo: Pending transfer to [facility], for Colorectal surgery - accepting is Dr. Jasmin Monroe (Colorectal surgery)
Anticipated Discharge: 24 - 48 hours
Subjective/Interval History
-
Date of Service: June 24, 2025
resting comfortably at present
tolerating TPN
Objective Data
-
Labs:
Laboratory Results
06/24/25 06/24/25 06/24/25
08:51 13:55 18:00
WBC 2.6 L
Hgb 9.6 L
Hct 28.4 L
Plt Count 194
Sodium 140
Potassium 3.6
Chloride 109 H
Carbon Dioxide 27
BUN 15
Creatinine 0.6
Glucose 125 H Pending Pending
Calcium 8.2 L
Total Bilirubin 0.4
AST 30
ALT 37 H
Alkaline Phosphatase 108
Vital Signs:
Vital Signs
Temp Pulse Resp BP Pulse Ox
97.8 F 79 16 135/67 98
06/24/25 07:17 06/24/25 07:17 06/24/25 07:17 06/24/25 07:17 06/24/25 07:17
I&O
06/23/25 06/24/25 06/25/25
06:59 06:59 06:59
Intake Total 500 / 500 700 / 700 360 / 360
Balance 500 / 500 700 / 700 360 / 360
Physical Exam
-
General: No Apparent Distress
HEENT: Normocephalic
Respiratory: Negative Wheezes
Cardiac: Regular Rhythm and S1/S2
GI: Soft
Musculoskeletal: No Edema
Neuro: AO x 3
Hematologic / Lymphatic: No Lymphadenopathy
Psych: Calm
Data Reviewed
-
Total Time Spent with Patient (in minutes): 41
Labs: Labs Reviewed by me
[2025-06-24 14:31] LABS: Glucose 140 mg/dl (70-99)
[2025-06-24 15:50] VITALS: BP 129/71
[2025-06-24] MEDS: LOVENOX 40 MG SC (17:18)
[2025-06-24] MEDS: TYLENOL 650 MG PO (20:03)
[2025-06-24 21:00] LABS: Glucose 124 mg/dl (70-99)
[2025-06-24] MEDS: Parenteral Nutrition, Central 1500 IV (21:04)
[2025-06-24] MEDS: DESYREL 50 MG PO (21:07)
[2025-06-24] MEDS: MELATONIN 10 MG PO (21:07)
[2025-06-24 23:58] VITALS: BP 138/62
[2025-06-25 00:48] LABS: Glucose 121 mg/dl (70-99)
[2025-06-25 05:47] LABS: Glucose 121 mg/dl (70-99); Magnesium 2.4 mg/dl (1.6-2.3)
[2025-06-25 06:37] VITALS: BMI 29.0
[2025-06-25 07:05] VITALS: BP 105/63
[2025-06-25] MEDS: DESENEX/MITRAZOL/ZEASORB 1 APPLIC TOPICAL (07:57)
[2025-06-25] MEDS: FLORASTOR 250 MG PO (07:57)
[2025-06-25] MEDS: FOLVITE 1 MG PO (07:57)
[2025-06-25] MEDS: VITAMIN B1 100 MG PO (07:57)
[2025-06-25] MEDS: QUESTRAN 4 GRAM PO (07:57)
[2025-06-25] MEDS: CYMBALTA DELAYED RELEASE 30 MG PO (07:58)
[2025-06-25 08:51] LABS: ALT (SGPT) 33 U/L (0-35); AST (SGOT) 32 U/L (14-36); Albumin 3.0 g/dl (3.5-5.0); Alkaline Phosphatase 103 U/L (38-126); Blood Urea Nitrogen 16 mg/dl (7-17); Calcium 8.4 mg/dl (8.4-10.2); Carbon Dioxide 26 mmol/L (22-30); Chloride 111 mmol/L (98-107); Estimated Creatinine Clearance 53 ml/min; Potassium 4.0 mmol/L (3.5-5.1); Sodium 140 mmol/L (135-145); Total Protein 5.5 g/dl (6.3-8.2); eGFR > 60.00
--- NOTE | 2025-06-25 11:41 | W.PN.HOSP.TC ---
Today's Communication/Plan
-
Transfer to [facility] today
Assessment / Plan
Assessment / Plan
Assessment:
Acute on chronic diarrhea
- Patient has been dealing with chronic diarrhea for some time and had extensive workup in the past per patient
- Patient with history of C. difficile and rechecked and has been negative
- Stool culture negative till date.
- Noro virus negative
- Possible flare-up of chronic diarrhea from any viral illness vs other
- GI following; further workup sent
- continue cholestyramine BID, prn Lomotil
- probiotics added
- CT A/P: Moderate segment abnormal mural thickening along the proximal sigmoid colon as above. Along this segment, there is area of apparent luminal narrowing which is persistent on the delayed phase images compatible with the given history of
sigmoid stricture. There is also abnormal eccentric contrast along the posterior wall of the proximal sigmoid colon as above. Exact etiology of this is indeterminate, but longitudinal intramural fistula would be a consideration.
- GG Enema: SEVERE NONOBSTRUCTING STRICTURE in the PROXIMAL SIGMOID COLON causing greater than 90% diameter luminal narrowing. A SEVERE DIVERTICULAR STRICTURE is considered most likely. A malignant stricture (colon adenocarcinoma) is a less likely
diagnostic possibility. Severe diverticulosis in the sigmoid colon.
- Colorectal evaluation; patient offered sigmoid resection and Ostomy. Patient prefers transfer to [facility]. d/w [facility] on 06/[address] Monroe (Colorectal surgery)
- diet: Fulls with supplementals. TPN requested by [facility] Colorectal surgery service. daily TPN with pharmacy dosing assistance via PICC line.
Hypokalemia
- Replace as needed
History of C. difficile colitis
- Patient have undergone 2 fecal transplant, last one 8 years back at [facility]
- C. difficile antigen/toxin negative this visit
Generalized weakness
Depression/anxiety
- Continue trazodone/Duloxetine
Pancytopenia - unclear etiology. Platelets improved. leukopenia persists along with anemia, suspect both are chronic. no sign of bleeding or infection.
DVT prophylaxis: Lovenox
Code: Full
Dispo: Pending transfer to [facility], today, for Colorectal surgery - accepting is Dr. Jasmin Monroe (Colorectal surgery)
Anticipated Discharge: Today
Subjective/Interval History
-
Date of Service: June 25, 2025
resting comfortably
tolerating TPN
bed today at [facility]
Objective Data
-
Labs:
Laboratory Results
06/25/25 06/25/25 06/25/25
00:14 05:03 12:00
Sodium 140
Potassium 4.0
Chloride 111 H
Carbon Dioxide 26
BUN 16
Creatinine 0.6
Glucose 121 H 121 H Pending
Calcium 8.4
Total Bilirubin 0.4
AST 32
ALT 33
Alkaline Phosphatase 103
06/25/25
18:00
Sodium
Potassium
Chloride
Carbon Dioxide
BUN
Creatinine
Glucose Pending
Calcium
Total Bilirubin
AST
ALT
Alkaline Phosphatase
Vital Signs:
Vital Signs
Temp Pulse Resp BP Pulse Ox
98.4 F 92 20 105/63 98
06/25/25 07:05 06/25/25 07:05 06/25/25 07:05 06/25/25 07:05 06/25/25 07:05
I&O
06/24/25 06/25/25 06/26/25
06:59 06:59 06:59
Intake Total 700 / 700 480 / 480
Balance 700 / 700 480 / 480
Physical Exam
-
General: No Apparent Distress
HEENT: Normocephalic and Atraumatic
Respiratory: Negative Wheezes
Cardiac: Regular Rhythm and S1/S2
GI: Soft
Neuro: AO x 3
Psych: Calm
Data Reviewed
-
Total Time Spent with Patient (in minutes): 41
Labs: Labs Reviewed by me
--- NOTE | 2025-06-25 11:43 | W.DS.TRANS ---
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
-
Discharge Instructions:
Discharge Diagnosis/Procedures acute worsening of chronic diarrhea
Diet Regular
Activity As tolerated
Driving Restrictions As prior to admission
Bathing Restrictions OK to Shower
Instructions:
Stand-Alone Forms:
Changes to Home Medications: No
Discharge Medications:
DC Medications w/original date entered in [facility]
xuhnamr-kkahcapaxjizu-zbntkxsn 250 mg-250 mg-65 mg tablet (Excedrin Extra Strength) 1 tab PO DAILYPRN PRN sinus headache 07/21/22
cholestyramine 4 gram oral powder for suspension in a packet 4 g PO QPM High Cholesterol 01/26/25
melatonin 10 mg tablet 10 mg PO HS Sleep 01/26/25
duloxetine 30 mg capsule,delayed release 30 mg PO DAILY Depression 30 days #30 caps 02/02/25
folic acid 1 mg tablet 1 mg PO DAILY 30 days #30 tabs 02/02/25
thiamine mononitrate (vit B1) 100 mg tablet 100 mg PO BID Vitamin 30 days #60 tabs 02/02/25
trazodone 50 mg tablet 50 mg PO HS Sleep 06/15/25
Home Medication Changes
Pending Results: No
Total time spent discharging patient (in min): 41
[2025-06-25 12:28] LABS: Glucose 118 mg/dl (70-99)
[2025-06-25 14:21] VITALS: BP 140/80
== END 2025-06-25 16:11 | disposition short-term general hospital (02) | DRG 389 ==
LOC: 4 WEST ACU 08:20
PROVIDERS: Hospitalist; Nurse Practitioner Adult Health; Student in an Organized Health Care Education/Training Program; ADMITTING PHYSICIAN Hospitalist; ATTENDING PHYSICIAN Internal Medicine; CONSULT PHYSICIAN Psychiatry & Neurology Psychiatry; CONSULT PHYSICIAN Specialist; CONSULT PHYSICIAN Surgery; EMERGENCY PHYSICIAN Emergency Medicine
DX: K56.699 Other intestinal obstruction unspecified as to partial versus complete obstruction (principal); D61.818 Other pancytopenia; E87.1 Hypo-osmolality and hyponatremia; K52.9 Noninfective gastroenteritis and colitis, unspecified; E87.6 Hypokalemia; F41.9 Anxiety disorder, unspecified; F31.9 Bipolar disorder, unspecified; E78.00 Pure hypercholesterolemia, unspecified; Z92.89 Personal history of other medical treatment; K76.0 Fatty (change of) liver, not elsewhere classified; Z86.19 Personal history of other infectious and parasitic diseases; E03.9 Hypothyroidism, unspecified; Z85.44 Personal history of malignant neoplasm of other female genital organs; F10.11 Alcohol abuse, in remission; I10 Essential (primary) hypertension; K21.00 Gastro-esophageal reflux disease with esophagitis, without bleeding; Z98.1 Arthrodesis status; Z87.891 Personal history of nicotine dependence; Z80.0 Family history of malignant neoplasm of digestive organs; Z91.048 Other nonmedicinal substance allergy status; Z88.0 Allergy status to penicillin; Z79.899 Other long term (current) drug therapy; E86.1 Hypovolemia; G89.29 Other chronic pain; M81.0 Age-related osteoporosis without current pathological fracture; Z53.20 Procedure and treatment not carried out because of patient's decision for unspecified reasons; Z88.1 Allergy status to other antibiotic agents; Z96.643 Presence of artificial hip joint, bilateral; F34.1 Dysthymic disorder
CPT/HCPCS: 71045; 74022; 74177; 74270; 76700; 80048; 80053; 82248; 82308; 82947; 82962; 83690; 83735; 84100; 84443; 84478; 84586; 85025; 85027; 87045; 87046; 87324; 87427; 87449; 87798; 96360; 96361; 97110; 97162; 97167; 97530; 99285; Q9967